=== PATIENT | male | born 1955 | race Caucasian/White ===

== ENCOUNTER → 2016-04-15 | Outpatient (CLI) | payer OTHER ==
[~2016-04-15] MED LIST: AMIO200T PO; CMD6 PO; DXY100 PO; FRS/40 PO; GLC500 PO; LISI2.5T5 PO; LPR50 PO; MCR5 PO; MGNO400 PO
[2016-04-15 12:31] LABS: ALT/SGPT 20 U/L (12-78); BLOOD UREA NITROGEN 43 mg/dl (7-18); BUN/CREATININE RATIO 22.6 (10-20); CALCIUM 9.4 mg/dl (8.5-10.1); CARBON DIOXIDE 29 mmol/L (21-32); CHLORIDE 101 mmol/L (98-107); CHOLESTEROL 158 mg/dl (0-200); GLUCOSE 207 mg/dl (70-99); HEMATOCRIT 46.9 % (42-52); MEAN CELL VOLUME 82.9 fL (80-100); MEAN CORPUSCULAR HEMOGLOBIN 28.1 pg (25-34); MEAN CORPUSCULAR HGB CONC 33.9 g/dl (32-36); MEAN PLATELET VOLUME 11.2 fL (7.4-10.4); PLATELET COUNT 109 K/uL (130-400); RED BLOOD COUNT 5.66 M/uL (4.7-6.1); SODIUM 138 mmol/L (136-145); WHITE BLOOD COUNT 6.25 K/uL (4.8-10.8)
[2016-04-15 12:42] LABS: ALB/GLOB RATIO 1.1 (0.9-2); ALKALINE PHOSPHATASE 63 U/L (45-117); AST/SGOT 15 U/L (15-37); CHOLESTEROL/HDL RATIO 4.3; HDL CHOLESTEROL 37 mg/dl; LDL CHOLESTEROL CALCULATED 77 mg/dl; TRIGLYCERIDES 222 mg/dl (0-150); VERY LOW DENSITY LIPOPROT CALC 44 mg/dl
[2016-04-15 13:07] LABS: ESTIMATED AVERAGE GLUCOSE 246 mg/dl; HA1C FLAG Normal (Normal)
[2016-04-15 13:18] LABS: RATIO 412.5 mcg/mg (0-30.0)
== END | disposition home or self-care (01) ==
LOC: C.LABBFT 10:34
PROVIDERS: ATTEND Internal Medicine
DX: E11.42 Type 2 diabetes mellitus with diabetic polyneuropathy (principal); E11.65 Type 2 diabetes mellitus with hyperglycemia; I48.91 Unspecified atrial fibrillation

== ENCOUNTER → 2016-09-08 | Outpatient (CLI) | payer OTHER ==
--- NOTE | 2016-09-09 07:22 | PAP/PSG TECHNICIAN REPORT ---
[facility] Conference Assistant Polysomnogram Report Study name: None Report date: 09/09/2016 Study date: 09/08/2016 Referring Physician: Sarah Bustos PA-C Name: WALT JOHNSON Interpreting Physician: Paramjit Lawrence M.D. Date of : 1955 Conference Assistant: Odilia Solis [facility]. Sex: Male Age: 61 StudyType: PSG PAP Weight: 258 lbs Height: 61 years, Height 5' 10" Neck Circum: BMI: 37.02 Medications: Advair Diskus, Amiodarone 200 mg, Bumetanide, Glyburide 5 mg, Januvia 100 mg, Levothyroxine, 75 MCG, Magnesium Oxidie 400 mg, Metofrmin 400 mg, Metformin 1000 mg, Metoprolol Tartrate 50 mg, Warfarin Soidum 6 mg Patient History 61 yr. old male here for an updated titration sleep study. Patient lost his insurance and stopped using PAP and supplemental 02, he now has insurance and is ready to start treatment. Parameters Monitored NPSG: E1-M2, E2-M1, Fp1-M2, Fp2-M1, F3-M2, F4-M2, F4-M1, C3-M2, C4-M2, C4-M1, O1-M2, O2-M2, O2-M1, T3-M2, T4-M1, P3-M2, P4-M1, CHIN1, CHIN2, HR, EKG, Legs, PFLOW, SNOR, FLOW, CFLOW, Tidal Volume, THOR, ABDO, SpO2, PLTH, CPRESS, ETCO2 Wave, ETCO2, pH Sleep Architecture Sleep Stages Time at Lights Off 10:26:46 PM STAGES Time (min.) TST (%) Time at Lights On 6:18:46 AM Wake 46.5 -- Total Recording Time (TRT) 472.50 min. N1 16.5 4 Total Sleep Period (TSP) 471.0 min. N2 201.5 47 Total Sleep Time (TST) 425.5min. N3 87.0 20 Awake Time 46.5 min. REM 120.5 28 Wake after Sleep Onset 45.5 min. Sleep Efficiency (SE) 90 % Sleep Onset Latency (RICK) 1.0 min. Number of Stage 1 Shifts None Awakenings 14 Stage Changes 64 Number of REM periods 5 REM 120.5 28 REM Latency 52.0 min. NREM 305.0 72 Body Position Analysis Supine Right Left Side Prone Vertical Total Sleep Time (min.) 472.0 0.0 0.0 0.00 0.0 0.0 Total Sleep Time (%) 100% 0% 0% 0 0% N/A% Total Sleep Time REM (min.) 120.5 0.0 0.0 None 0.0 0.0 Total Sleep Time NREM (min.) 305.0 0.0 0.0 None 0.0 0.0 Intermittent Wake (min.) 46.5 0.0 0.0 None 0.0 0.0 Total Sleep Period (%) 100% None None None None None Arousals Myoclonus (PLM) * Events Count Index Events Count Index Spontaneous 4 1 Events Awake (PLMW) 16 20.6 Respiratory 3 0.6 Events Asleep w/ Arousal (PLMA) 1 0.1 PLM 0 0 Events Asleep w/o Arousal (PLMS) 16 2.3 Snoring 0 0 Total Asleep 17 2.4 Total 7 1 Total 33 4 Respiratory Analysis * CA OA MA CH H RERA Total Count 0 8 0 0 60 1 68 Index 0.0 1.1 0.0 0 8.5 0 9.7 Mean Duration 0.0 25.8 0.0 0.00 31.6 29.5 30.9 Longest Duration 0.0 31.4 0.0 0.00 0.0 29.5 80.8 Respiratory Event Summary Total Supine ~Supine Right Left Prone REM NREM Apneas Count 8 8 N/A N/A N/A N/A 1 7 Index 1.1 1 N/A N/A N/A N/A 0 1 Hypopneas (4% Desat) Count 60 60 N/A N/A N/A N/A 24 36 Index 8.5 8.5 N/A N/A N/A N/A 12.0 7.1 Apneas & All Hypopneas Count 68 68 N/A N/A N/A N/A 25 43 Index 9.6 10 N/A N/A N/A N/A 12.4 8.5 Respiratory Events (Acrobatic Dancer+All Hyp+RERA) Count 68 69 N/A N/A N/A N/A 25 43 Index 9.7 10 N/A N/A N/A N/A 12.4 8.7 Respiratory Related Arousal Count 3 69 N/A N/A N/A N/A 1 3 Index 0.4 0 N/A N/A N/A N/A 0 1 Snoring Analysis Supine Right Left Prone REM NREM Total Snore duration 1.9 min Snores count 87 N/A N/A N/A 21 66 87 Snore mean duration 1.3 Sec Snores index 12 N/A N/A N/A 10.5 13.0 12.3 TST with snoring (%) 0.4% Desaturation Event Summary: Minimum %SpO2 Event Count Mean/Min/Max Duration(sec.) Desaturation Index % Time In Bed > 90 25 35.4 / 19.0 / 58.3 8.0 39.7 86 - 90 46 30.0 / 6.0 / 58.3 11.1 52.6 81 - 85 5 19.8 / 9.3 / 30.8 9.5 6.7 76 - 80 0 N/A 0.0 0.7 71 - 75 0 N/A 0.0 0.2 66 - 70 0 N/A 0.0 0.1 61 - 65 0 N/A 0.0 0.0 56 - 60 0 N/A 0.0 0.0 51 - 55 0 N/A 0.0 0.0 < 50 0 N/A 0.0 0.0 Total REM NREM Awake <50% 0.0 min. 0.0 min. 0.0 min. 0.0 min. 51 - 60% 0.0 min. 0.0 min. 0.0 min. 0.0 min. 61 - 70% 0.3 min. 0.3 min. 0.0 min. 0.0 min. 71 - 80% 4.5 min. 2.0 min. 2.6 min. 0.0 min. 81 - 90% 279.9 min. 85.8 min. 187.1 min. 7.0 min. 91 - 100% 187.3 min. 32.5 min. 115.3 min. 39.5 min. Average 90 89 90 93 Minimum SpO2 68 68 73 82 Desaturation Event Index 7.2 8.5 7.9 1.3 # Desat. Events below 89% 49 17 32 0 Time(%) with Saturation below 89% 23.4 12.9 10.3 0.3 Time(min.) with Saturation below 89% 110.6 60.7 48.7 1.2 Time (mins) REM (mins) NREM (mins) % of TST SpO2 Below 90% 55 17 N38 44.8 SpO2 Below 88% 25 0 0 17 Heart Rate Analysis Min (bpm) Max (bpm) Average (bpm) Awake 38 52 41 NREM 38 65 41 REM 38 53 42 Overall 38 65 41 Supplemental O2 Values Minimum O2 level: None Value Start Time End Time Conference Assistant Comments Mr. Johnson slept in the supine position. Bradycardia was noted. No PLMs noted. No bruxism noted. CPAP was initiated at +4 CMH2O room air and up-titrated to a level of +14 CMH2O 1 liter supplemental oxygen Cflex 1 , which nearly eliminated all respiratory events and snoring. Oxygen was initiated at 4:55 AM, when Mr. Johnson was under 89% for 25.8 minutes, and on 14 CWP for 127.9 min with an AHI of 1.4. A large Bevvy Simplus was used during titration. Mr. Johnson did not wake to use the restroom during the night. Mr. Johnson stated, that was good night. The final report will be interpreted and signed by a sleep physician. The completed physician report will then be placed in the patient medical record. Therapy Event: Therapy (cm H20) 4 5 6 7 8 9 Total Time at Pressure (min.) 3.6 5.7 25.4 10.0 17.7 46.2 TST at Pressure (min.) 2.8 5.7 25.4 10.0 16.7 45.2 # Periods 1 1 1 1 1 1 Sleep Onset (min.) 0.8 0.0 0.0 0.0 0.0 0.0 REM Onset (min.) N/A N/A N/A N/A 8.2 40.0 Sleep Efficiency % 77 100 100 100 94 97 Wakefulness (%) 22.2 0.0 0.0 0.0 5.6 2.2 Wakefulness (min.) 0.8 0.0 0.0 0.0 1.0 1.0 NREM 1 (%) 27.7 0.0 0.0 0.0 11.3 1.1 NREM 1 (min.) 1.0 0.0 0.0 0.0 2.0 0.5 NREM 2 (%) 50.1 100.0 14.0 63.1 77.5 54.0 NREM 2 (min.) 1.8 5.7 3.5 6.3 13.7 25.0 NREM 3 (%) 0.0 0.0 86.0 36.9 0.0 29.2 NREM 3 (min.) 0.0 0.0 21.8 3.7 0.0 13.5 REM (%) 0.0 0.0 0.0 0.0 5.6 13.6 REM (min.) 0.0 0.0 0.0 0.0 1.0 6.3 # Arousals 0 0 1 0 1 0 Arousal Index 0.0 0.0 2.4 0.0 3.6 0.0 # Snore 0 3 17 2 33 8 Snore Index 0.0 31.8 40.2 12.0 118.2 10.6 AHI 106.7 42.5 21.3 48.1 46.6 8.0 AHI Supine 106.7 42.5 21.3 48.1 46.6 8.0 AHI Non-Supine N/A N/A N/A N/A N/A N/A NREM AHI 106.7 42.5 21.3 48.1 45.7 1.5 REM AHI N/A N/A N/A N/A 60.0 47.8 RDI 106.7 42.5 21.3 48.1 46.6 8.0 # Obstructive 0 0 2 4 2 0 # Central Ap 0 0 0 0 0 0 # Mixed 0 0 0 0 0 0 # Hypopneas 5 4 7 4 11 6 RERAS 0 0 0 0 0 0 Total Respiratory Events 5 4 9 8 13 6 Time Below SpO2 89.00% (min.) 0.8 5.5 24.4 6.6 5.2 6.2 Mean NREM SpO2 (%) 90 84 84 88 90 90 Mean REM SpO2 (%) N/A N/A N/A N/A 88 85 Mean Sleep SpO2 (%) 90 84 84 88 90 89 Min NREM SpO2 (%) 85 79 73 80 80 87 Min REM SpO2 (%) N/A N/A N/A N/A 86 71 Position Supine (min.) 2.8 5.7 25.4 10.0 16.7 45.2 Position Non-supine (min.) 0.0 0.0 0.0 0.0 0.0 0.0 LM Index Sleep 0.0 0.0 2.4 0.0 10.7 5.3 LM Index NREM 0.0 0.0 2.4 0.0 7.6 6.2 LM Index REM N/A N/A N/A N/A 60.0 0.0 Mean Heart Rate (bpm) 44 46 46 43 42 42 Min Heart Rate (bpm) 43 45 41 41 40 40 Therapy (cm H20) 10 11 12 13 14 Total Time at Pressure (min.) 10.5 14.1 42.5 83.7 212.4 TST at Pressure (min.) 10.5 13.7 41.4 80.2 173.9 # Periods 1 1 1 1 1 Sleep Onset (min.) 0.0 0.0 0.6 0.0 0.0 REM Onset (min.) 0.0 0.0 N/A 57.6 0.0 Sleep Efficiency % 100 97 97 95 81 Wakefulness (%) 0.0 2.7 2.6 4.2 18.1 Wakefulness (min.) 0.0 0.4 1.1 3.5 38.5 NREM 1 (%) 0.0 0.0 4.7 4.8 3.3 NREM 1 (min.) 0.0 0.0 2.0 4.0 7.0 NREM 2 (%) 0.0 0.0 57.6 38.8 41.7 NREM 2 (min.) 0.0 0.0 24.5 32.5 88.5 NREM 3 (%) 0.0 0.0 35.1 21.0 7.3 NREM 3 (min.) 0.0 0.0 14.9 17.6 15.5 REM (%) 100.0 97.3 0.0 31.2 29.6 REM (min.) 10.5 13.7 0.0 26.1 62.9 # Arousals 1 1 0 0 3 Arousal Index 5.7 4.4 0.0 0.0 1.0 # Snore 6 6 3 1 8 Snore Index 34.3 26.3 4.3 0.7 2.8 AHI 40.0 26.3 4.3 4.5 0.3 AHI Supine 40.0 26.3 4.3 4.5 0.3 AHI Non-Supine N/A N/A N/A N/A N/A NREM AHI N/A N/A 4.3 0.0 0.5 REM AHI 40.0 26.3 N/A 13.8 0.0 RDI 40.0 26.3 4.3 4.5 0.7 # Obstructive 0 0 0 0 0 # Central Ap 0 0 0 0 0 # Mixed 0 0 0 0 0 # Hypopneas 7 6 3 6 1 RERAS 0 0 0 0 1 Total Respiratory Events 7 6 3 6 2 Time Below SpO2 89.00% (min.) 6.7 4.3 0.8 23.1 25.8 Mean NREM SpO2 (%) N/A N/A 91 90 92 Mean REM SpO2 (%) 87 89 N/A 87 90 Mean Sleep SpO2 (%) 87 89 91 89 91 Min NREM SpO2 (%) N/A N/A 87 88 88 Min REM SpO2 (%) 68 81 N/A 82 83 Position Supine (min.) 10.5 13.7 41.4 80.2 173.9 Position Non-supine (min.) 0.0 0.0 0.0 0.0 0.0 LM Index Sleep 0.0 4.4 8.7 0.7 0.3 LM Index NREM N/A N/A 8.7 1.1 0.5 LM Index REM 0.0 4.4 N/A 0.0 0.0 Mean Heart Rate (bpm) 43 43 40 41 40 Min Heart Rate (bpm) 39 40 39 39 38
--- NOTE | 2016-09-09 16:54 | POLYSOMNOGRAPH REPORT ---
CLINICAL DATA: A 61-year-old male with BMI of [address] Claudia Santamaria and myself for an updated titration study. He was on CPAP 11 cm water pressure with oxygen at night. He lost his insurance and stopped using CPAP and oxygen and has returned for an updated titration study. SLEEP ARCHITECTURE: Total recording time was 472.5 minutes. Total sleep period was 471 minutes. Total sleep time was 425.5 minutes divided between 305 minutes of non-REM sleep and 120.5 minutes of REM sleep. Sleep onset latency was 1 minute. REM latency was 52 minutes. Sleep efficiency was 90%. Wake after sleep onset was 45.5 minutes. Sleep consisted of stage N1 4%, stage N2 47%, stage N3 20%, and REM 28%. AROUSAL DATA: Seven arousals were recorded for an index of 1 per hour. PLM DATA: Seventeen limb movements during sleep were noted for an index of 2.4 per hour with arousal index of 0.1 per hour. RESPIRATORY DATA: The AHI was 9.6. There were 8 obstructive apneic episodes, the longest duration of which was 31.4 seconds. There were 60 hypopneas with a mean duration of 31.6 seconds. OXIMETRY DATA: Nocturnal hypoxemia was seen. Oxygen lashaun was 68% during REM. The mean saturation was 90%. Time below 88% was 25 minutes. EKG: Heart rates ranged from 38-65 beats per minute. No arrhythmias were noted. BICYCLE MECHANIC'S COMMENTS AND TREATMENT SUMMARY: The patient slept supine. He used a large [employer] Simplus mask. He was titrated up to 14 cm of water He slept for 173.9 minutes and had an AHI is 0.3 but persistent nocturnal hypoxemia. At that point, oxygen 1 liter per minute was added. Following the addition of oxygen, his sleep apnea and hypoxemia resolved. IMPRESSION: Obstructive sleep apnea/hypopnea corrected with CPAP 14 cm of water pressure, C-flex 1, oxygen 1 liter per minute with a large [employer] Simplus mask. RECOMMENDATIONS: The patient should be started on the above noted treatment regimen and seen back in followup within 90 days to document efficacy and compliance. MTDD
== END | disposition home or self-care (01) ==
LOC: C.NEUR 20:00
PROVIDERS: ATTEND Physician Assistant Medical
DX: G47.33 Obstructive sleep apnea (adult) (pediatric) (principal); G47.34 Idiopathic sleep related nonobstructive alveolar hypoventilation

== ENCOUNTER → 2016-09-22 | Outpatient (CLI) | payer OTHER ==
[2016-09-22 18:15] LABS: ALT/SGPT 23 U/L (12-78); BLOOD UREA NITROGEN 33 mg/dl (7-18); BUN/CREATININE RATIO 16.6 (10-20); CALCIUM 9.4 mg/dl (8.5-10.1); CARBON DIOXIDE 34 mmol/L (21-32); CHLORIDE 104 mmol/L (98-107); GLUCOSE 175 mg/dl (70-99); POTASSIUM 5.1 mmol/L (3.5-5.1); SODIUM 140 mmol/L (136-145)
[2016-09-22 18:29] LABS: ALB/GLOB RATIO 1.1 (0.9-2); ALKALINE PHOSPHATASE 54 U/L (45-117); AST/SGOT 15 U/L (15-37)
[2016-09-23 07:40] LABS: ESTIMATED AVERAGE GLUCOSE 166 mg/dl; HA1C FLAG Normal (Normal)
== END | disposition home or self-care (01) ==
LOC: C.LABBFT 12:10
PROVIDERS: ATTEND Internal Medicine
DX: E11.42 Type 2 diabetes mellitus with diabetic polyneuropathy (principal); E03.9 Hypothyroidism, unspecified; Z11.59 Encounter for screening for other viral diseases

== ENCOUNTER → 2017-01-19 | Outpatient (CLI) | payer OTHER ==
[2017-01-19 17:29] LABS: BASO % 0.4 %; BASO ABS # 0.02 K/uL (0-0.2); COMPLETE YES; EOS % 1.4 %; HEMATOCRIT 46.9 % (42-52); IG% 1.1 %; LYMPH % 12.8 %; LYMPH ABS # 0.72 K/uL (1.2-3.4); MEAN CORPUSCULAR HEMOGLOBIN 29.4 pg (25-34); MEAN CORPUSCULAR HGB CONC 32.6 g/dl (32-36); MONO % 8.2 %; NEUT % 76.1 %; PLATELET COUNT 104 K/uL (130-400); RED BLOOD COUNT 5.21 M/uL (4.7-6.1); WHITE BLOOD COUNT 5.62 K/uL (4.8-10.8)
[2017-01-19 17:46] LABS: BLOOD UREA NITROGEN 39 mg/dl (7-18); BUN/CREATININE RATIO 17.6 (10-20); CALCIUM 8.9 mg/dl (8.5-10.1); CARBON DIOXIDE 34 mmol/L (21-32); CHLORIDE 105 mmol/L (98-107); CHOLESTEROL 135 mg/dl (0-200); CREATININE 2.22 mg/dl (0.60-1.40); GLUCOSE 140 mg/dl (70-99); POTASSIUM 5.6 mmol/L (3.5-5.1); SODIUM 141 mmol/L (136-145)
[2017-01-19 17:59] LABS: ALB/GLOB RATIO 1.1 (0.9-2); ALKALINE PHOSPHATASE 54 U/L (45-117); ALT/SGPT 24 U/L (12-78); AST/SGOT 16 U/L (15-37); CHOLESTEROL/HDL RATIO 3.6; HDL CHOLESTEROL 38 mg/dl; LDL CHOLESTEROL CALCULATED 54 mg/dl; TRIGLYCERIDES 216 mg/dl (0-150); VERY LOW DENSITY LIPOPROT CALC 43 mg/dl
[2017-01-20 06:05] LABS: ESTIMATED AVERAGE GLUCOSE 154 mg/dl; HA1C FLAG Normal (Normal)
== END | disposition home or self-care (01) ==
LOC: C.LABBFT 11:11
PROVIDERS: ATTEND Internal Medicine
DX: E11.29 Type 2 diabetes mellitus with other diabetic kidney complication (principal)

== ENCOUNTER → 2017-01-22 | Outpatient (CLI) | payer OTHER ==
[2017-01-22 13:02] LABS: INR 1.8 (0.9-1.1); PARTIAL THROMBOPLASTIN RATIO 1.4; PROTHROMBIN TIME (PATIENT) 18.7 SECONDS (9.0-12.0)
== END | disposition home or self-care (01) ==
LOC: C.LABBFT 11:35
PROVIDERS: ATTEND Urology
DX: E11.51 Type 2 diabetes mellitus with diabetic peripheral angiopathy without gangrene (principal); I48.2 Chronic atrial fibrillation; N52.1 Erectile dysfunction due to diseases classified elsewhere; N18.3 Chronic kidney disease, stage 3 (moderate)

== ENCOUNTER → 2017-02-01 | Outpatient (CLI) | payer OTHER | END | disposition home or self-care (01) | LOC: C.LABBFT 07:42 | PROVIDERS: ATTEND Urology | DX: N39.0 Urinary tract infection, site not specified (principal) ==

== ENCOUNTER → 2017-04-07 | Outpatient (CLI) | payer OTHER ==
[2017-04-07 17:57] LABS: INR 1.6 (0.9-1.1)
== END | disposition home or self-care (01) ==
LOC: C.LABBFT 15:39
PROVIDERS: ATTEND Physician Assistant Medical
DX: I48.0 Paroxysmal atrial fibrillation (principal)

== ENCOUNTER 2018-07-20 03:42 | Inpatient (IN) ==
[2018-07-20] MEDS ORDERED: HYDROmorphone INJ 1 MG/ML SYRINGE IV STA (04:12)
[2018-07-20 04:43] LABS: Hemoglobin 15.1 g/dL (14.0-18.0); Mean Corpuscular Hgb Conc 34.3 g/dL (32-36); Mean Corpuscular Volume 86.3 fL (80-100); RDW Coefficient of Variation 14.1 % (11.5-14.5); RDW Standard Deviation 44.2 fL (36.4-46.3); White Blood Count 7.59 K/uL (4.8-10.8)
[2018-07-20 04:56] LABS: Partial Thromboplastin Ratio 0.9; Partial Thromboplastin Time 23.6 Seconds (21.0-31.0); Prothrombin Time 10.6 Seconds (9.0-12.0)
[2018-07-20 05:04] LABS: Mean Platelet Volume 10.6 fL (7.4-10.4); Platelet Count 79 K/uL (130-400)
[2018-07-20 05:08] LABS: Basophils # (auto) 0.01 K/uL (0-0.2); Basophils % (auto) 0.1 %; Eosinophils # (auto) 0.01 K/uL (0-0.5); Eosinophils % (auto) 0.1 %; Immature Granulocytes # (auto) 0.02 K/uL (0.00-0.02); Immature Granulocytes % (auto) 0.3 %; Lymphocytes # (auto) 0.31 K/uL (1.2-3.4); Lymphocytes % (auto) 4.1 %; Monocytes # (auto) 0.65 K/uL (0.11-0.59); Monocytes % (auto) 8.6 %; Neutrophils # (auto) 6.59 K/uL (1.4-6.5); Neutrophils % (auto) 86.8 %; Platelet Estimate Decreased (Normal)
[2018-07-20 05:18] LABS: Albumin Globulin Ratio 1.3 (0.9-2); Albumin Level 3.7 gm/dl (3.4-5.0); BUN Creatinine Ratio 17.6 (10-20); Bilirubin,Total 0.6 mg/dl (0.2-1); Calcium 8.5 mg/dl (8.5-10.1); Creatinine Clr Calc Pharmacy 44.6 ml/min; Est GFR (African American) 39.2; Est GFR (Non-African American) 33.8; Globulin 2.9 gm/dl (2.5-4.0); Potassium 5.6 mmol/L (3.5-5.1); Total Protein 6.6 gm/dl (6.4-8.2); Troponin I 0.016 ng/ml (0-0.045)
[2018-07-20] MEDS ORDERED: PIPERACILL/TAZOBAC CONSULT ACTIVE PRN ×2 (06:18→09:46)
[2018-07-20] MEDS ORDERED: PIPERACILLIN/TAZOBACTAM 4.5 GM/120 ML BAG IV ONE (06:18)
[2018-07-20] MEDS ORDERED: SODIUM CHLORIDE 0.9% 1000ML 500 ML IV ONE (06:24)
[2018-07-20] MEDS: SODIUM CHLORIDE 0.9% 500 ML IV SCH ×7 (07:27→19:52)
[2018-07-20] MEDS ORDERED: NovoLIN-R INSULIN PER UNIT CHARGE IV STA (07:33)
--- NOTE | 2018-07-20 07:43 | Emergency Department Note ---
Entered by Sandra Duncan acting as a scribe for History of Present Illness General Chief complaint: Abdominal Pain Stated complaint: ABDOMINAL PAIN Time Seen by Provider: 07/20/18 03:47 Source: patient History of Present Illness Provider complaint: Abdominal pain Onset (ago): hour(s) 8 Location: abdomen Pain Consistency: + constant Maximum Pain Intensity: 9 Relieved By: + none Exacerbated By: + none Associated symptoms: + denies other symptoms and + fever/chills; no chest pain, no nausea/vomiting and no shortness of breath The patient is a 63 y/o male who presents to the emergency department for evaluation of constant abdominal pain beginning 8 hours ago. The patient states that the pain is all over his abdomen beginning yesterday at 8pm. He notes he could not recall his last bowel movement so he did take laxatives but has not produced a substantial bowel movement. The patient notes that he has a fever as well. The patient denies any nausea, vomiting, chest pain, shortness of breath, and pancreatitis history. He notes that he is on Coumadin. The patient reported that he is taking Prednisone for possible right ankle gout. Home Medications Home Medications Medication Instructions Recorded Confirmed Type Januvia 100 mg PO QDL 02/03/18 07/20/18 History amiodarone 200 mg PO QAM 02/03/18 07/20/18 History bumetanide 1 mg PO QPM 02/03/18 07/20/18 History fluticasone propion-salmeterol 1 inh INHALATION BID 02/03/18 07/20/18 History [Advair Diskus] magnesium oxide 800 mg PO BID 02/03/18 07/20/18 History metoprolol tartrate 25 mg PO BID 02/03/18 07/20/18 History warfarin 6 mg PO QPM 02/03/18 07/20/18 History blood sugar diagnostic strips #10 ea 07/19/18 07/20/18 Rx glipizide 10 mg tablet 10 mg PO BID #60 tab 07/19/18 07/20/18 Rx methylprednisolone 4 mg tablet 4 mg PO .COMPLEX #15 tab 07/19/18 07/20/18 Rx peg 3350-electrolytes 227.1 240 ml PO Q10M #1 ea 07/19/18 07/20/18 Rx gram-21.5 gram-6.36gram oral powder packet levothyroxine 75 mcg PO DAILY 07/20/18 07/20/18 History metformin 500 mg PO BID 07/20/18 07/20/18 History Allergies Allergy/AdvReac Type Severity Reaction Status Date / Time furosemide [From Lasix] AdvReac Rash Verified 07/20/18 04:19 Past Med/Surg History Medical History Asthma inhaler daily Atrial fibrillation follows with Dr. 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" History of strabismus surgery bilt History of surgery penial implant History of tooth extraction wisdom teeth Status post cervical spinal fusion normal ROM Family History Father Family history of diabetes mellitus Sister Family history of diabetes mellitus Brother Family history of diabetes mellitus Social History Preferred Language: Stateless Communication Ability: Effective Beliefs That Will Affect Care: None Current Living Situation: Alone Feels Safe at Home: Yes Smoking Status: Former smoker Tobacco Type: smokeless tobacco Second Hand Exposure: Yes (father smoked) Hx Alcohol Use: Yes Alcohol type: beer Hx Substance Use: No Review of Systems See HPI for pertinent positives & negatives. and A total of 10 systems reviewed and were otherwise negative Physical Exam Vital Signs Vital Signs - 24 hr 07/20/18 03:49 07/20/18 03:50 07/20/18 03:52 Temperature 38.2 C H Temperature Source Oral Sepsis Recent Fever Within 48 Hours Yes Sepsis New/Unexplained Change in Mental Status No Sepsis Action Taken by Nursing No Action Required Pulse Rate 74 74 75 Pulse Rate [Bilateral Apical] Pulse Rate from SpO2 Sensor 74 74 Respiratory Rate 19 18 23 Respiratory Effort / Characteristics Non-Labored Spontaneous Respiratory Depth Normal Respiratory Pattern Regular Blood Pressure 164/82 H Blood Pressure [Right Arm] Blood Pressure Mean 109 Blood Pressure Mean [Right Arm] Blood Pressure Position Lying Blood Pressure Position [Right Arm] Pulse Oximetry 94 92 94 Oxygen Delivery Method Room Air Oxygen Flow Rate 07/20/18 04:00 07/20/18 04:30 07/20/18 04:52 Temperature Temperature Source Sepsis Recent Fever Within 48 Hours Sepsis New/Unexplained Change in Mental Status Sepsis Action Taken by Nursing Pulse Rate 75 72 68 Pulse Rate [Bilateral Apical] 68 Pulse Rate from SpO2 Sensor 75 68 Respiratory Rate 23 26 H 24 Respiratory Effort / Characteristics Non-Labored Respiratory Depth Normal Respiratory Pattern Blood Pressure 132/79 Blood Pressure [Right Arm] 132/79 Blood Pressure Mean 96 Blood Pressure Mean [Right Arm] 96 Blood Pressure Position Blood Pressure Position [Right Arm] Pulse Oximetry 93 98 Oxygen Delivery Method Room Air Nasal Cannula Oxygen Flow Rate 2 07/20/18 05:00 07/20/18 05:30 07/20/18 05:33 Temperature Temperature Source Sepsis Recent Fever Within 48 Hours Sepsis New/Unexplained Change in Mental Status Sepsis Action Taken by Nursing Pulse Rate 68 67 67 Pulse Rate [Bilateral Apical] Pulse Rate from SpO2 Sensor 68 67 67 Respiratory Rate 20 19 21 Respiratory Effort / Characteristics Respiratory Depth Respiratory Pattern Blood Pressure 134/78 Blood Pressure [Right Arm] Blood Pressure Mean 96 Blood Pressure Mean [Right Arm] Blood Pressure Position Blood Pressure Position [Right Arm] Pulse Oximetry 98 99 99 Oxygen Delivery Method Nasal Cannula Nasal Cannula Nasal Cannula Oxygen Flow Rate 2 2 2 07/20/18 05:34 07/20/18 05:51 07/20/18 05:54 Temperature Temperature Source Sepsis Recent Fever Within 48 Hours Sepsis New/Unexplained Change in Mental Status Sepsis Action Taken by Nursing Pulse Rate 67 66 Pulse Rate [Bilateral Apical] 67 Pulse Rate from SpO2 Sensor 67 66 Respiratory Rate 21 21 20 Respiratory Effort / Characteristics Respiratory Depth Respiratory Pattern Blood Pressure 149/74 H Blood Pressure [Right Arm] 149/74 H Blood Pressure Mean 99 Blood Pressure Mean [Right Arm] 99 Blood Pressure Position Blood Pressure Position [Right Arm] Sitting Pulse Oximetry 99 95 98 Oxygen Delivery Method Nasal Cannula Oxygen Flow Rate 2 2 2 07/20/18 06:00 07/20/18 06:15 Temperature Temperature Source Sepsis Recent Fever Within 48 Hours Sepsis New/Unexplained Change in Mental Status Sepsis Action Taken by Nursing Pulse Rate 63 64 Pulse Rate [Bilateral Apical] Pulse Rate from SpO2 Sensor 64 64 Respiratory Rate 19 20 Respiratory Effort / Characteristics Respiratory Depth Respiratory Pattern Blood Pressure 132/73 134/70 Blood Pressure [Right Arm] Blood Pressure Mean 92 91 Blood Pressure Mean [Right Arm] Blood Pressure Position Blood Pressure Position [Right Arm] Pulse Oximetry 97 97 Oxygen Delivery Method Oxygen Flow Rate 2 2 HEENT: Head - normocephalic and atraumatic Pupils are equal, round, and reactive to light. Extraocular eye muscles are intact, and sclera are anicteric. Nose - moist nasal mucosa without discharge. Mouth - moist buccal mucosa. Oropharynx is nonerythematous and there is no tonsillar exudate or edema noted. Neck: Supple; no JVD, nuchal rigidity, cervical lymphadenopathy. Heart: Regular rate and tachycardic rhythm. There is a normal S1 and S2 with no murmurs, clicks, or gallops appreciated. Lungs: Clear to auscultation bilaterally with no wheezes, rales, or rhonchi. Abdomen: Soft, nondistended, with good bowel sounds. There are no palpable pulsatile masses or hepatosplenomegaly. There is no guarding, rigidity, or rebound noted. Exquisite tenderness to palpation in right lower quadrant and mild tenderness in right upper quadrant Extremities: No evidence of cyanosis, clubbing, or edema. There are easily palpable peripheral pulses. Skin: Hot and dry with good turgor and no rashes. Course 0354: The patient was evaluated in room B09. A complete history and physical exam was performed. A septic protocol was performed. Labs were drawn as above. 0409: Ordered morphine 2 mg IV. The patient went for CT scan of the abdomen/pelvis as described above. 0618: Ordered Zosyn 4.5 gm in 120 ml IV along with a bolus of normal saline solution and then a normal 0620: I spoke with Dr. Laly Walker -General Surgery, who stated to follow up with the hospitalist. 0622: I discussed the findings with the patient. Waiting to hear back from Dr. Madsen. 0626: I spoke with Dr. Cale ROA Hospitalist. She will evaluate the patient for further management. Reevaluation(s) Reevaluation #1: I spoke with Dr. Laly Walker -General Surgery, who stated to follow up with the hospitalist. Time: 06:20 Reevaluation #2: I spoke with Dr. Cale ROA Hospitalist. She will evaluate the patient for further management. Time: 06:26 Administered Medications Sodium Chloride (Nss) 500 mls @ 125 mls/hr IV .Q4H MARCUS Stop: 08/19/18 06:29 Last Admin: 07/20/18 07:27 Dose: 125 mls/hr Documented by: [id number] Discontinued Medications Hydromorphone HCl (Dilaudid) 1 mg IV NOW STA Stop: 07/20/18 04:13 Last Admin: 07/20/18 04:28 Dose: 1 mg Documented by: [id number] Piperacillin Sod/Tazobactam Sod (Zosyn) 4.5 gm in 120 mls @ 240 mls/hr IV NOW ONE Stop: 07/20/18 06:47 Last Infusion: 07/20/18 07:03 Dose: 0 mls/hr Documented by: [id number] Admin: 07/20/18 06:27 Dose: 240 mls/hr Documented by: [id number] Sodium Chloride (Nss 1000ml) 500 mls @ 999 mls/hr IV .Q31M ONE Stop: 07/20/18 06:54 Last Infusion: 07/20/18 07:03 Dose: 0 mls/hr Documented by: [id number] Admin: 07/20/18 06:27 Dose: 999 mls/hr Documented by: [id number] Medical Decision Making Differential Diagnosis Differential diagnosis: sepsis, small bowel obstruction. appendicitis, pancreatitis, cholecystitis, ankle cellulitis. Medical Records Attestation: I reviewed the patient's medical records. Home Medications Current Medication List: was personally reviewed by me Laboratory Data Attestation: I reviewed the patient's lab results. Result diagrams: 07/20/18 04:20 07/20/18 04:20 Lab Results 07/20/18 07/20/18 07/20/18 Range/Units 04:20 04:20 04:20 WBC 7.59 (4.8-10.8) K/uL RBC 5.10 (4.7-6.1) M/uL Hgb 15.1 (14.0-18.0) g/dL Hct 44.0 (42-52) % MCV 86.3 (80-100) fL MCH 29.6 (25-34) pg MCHC 34.3 (32-36) g/dL RDW Std Deviation 44.2 (36.4-46.3) fL RDW Coeff of Guy 14.1 (11.5-14.5) % Plt Count 79 L (130-400) K/uL MPV 10.6 H (7.4-10.4) fL Immature Gran % (Auto) 0.3 % Neut % (Auto) 86.8 % Lymph % (Auto) 4.1 % [place] % (Auto) 8.6 % Eos % (Auto) 0.1 % Baso % (Auto) 0.1 % Immature Gran # (Auto) 0.02 (0.00-0.02) K/uL Neut # (Auto) 6.59 H (1.4-6.5) K/uL Lymph # (Auto) 0.31 L (1.2-3.4) K/uL [place] # (Auto) 0.65 H (0.11-0.59) K/uL Eos # (Auto) 0.01 (0-0.5) K/uL Baso # (Auto) 0.01 (0-0.2) K/uL Platelet Estimate Decreased L (Normal) PT 10.6 (9.0-12.0) Seconds INR 1.0 (0.9-1.1) APTT 23.6 (21.0-31.0) Seconds PTT Ratio 0.9 Sodium 137 (136-145) mmol/L Potassium 5.6 H (3.5-5.1) mmol/L Chloride 103 (98-107) mmol/L Carbon Dioxide 30 (21-32) mmol/L Anion Gap 4.0 (3-11) BUN 35 H (7-18) mg/dl Creatinine 2.01 H (0.6-1.4) mg/dl Est Cr Clr Drug Dosing 44.6 ml/min Est GFR ( Amer) 39.2 Est GFR (Non-Af Amer) 33.8 BUN/Creatinine Ratio 17.6 (10-20) Glucose 418 H* (70-99) mg/dl POC Glucose (70-99) Lactate (0.4-2.0) mmol/L Calcium 8.5 (8.5-10.1) mg/dl Total Bilirubin 0.6 (0.2-1) mg/dl AST 8 L (15-37) U/L ALT 18 (12-78) U/L Alkaline Phosphatase 62 (45-117) U/L Troponin I 0.016 (0-0.045) ng/ml Total Protein 6.6 (6.4-8.2) gm/dl Albumin 3.7 (3.4-5.0) gm/dl Globulin 2.9 (2.5-4.0) gm/dl Albumin/Globulin Ratio 1.3 (0.9-2) Lipase 137 (73-393) U/L Beta-Hydroxybutyric Acd 5.00 H (0.2-2.81) mg/dl 07/20/18 07/20/18 Range/Units 04:40 07:33 WBC (4.8-10.8) K/uL RBC (4.7-6.1) M/uL Hgb (14.0-18.0) g/dL Hct (42-52) % MCV (80-100) fL MCH (25-34) pg MCHC (32-36) g/dL RDW Std Deviation (36.4-46.3) fL RDW Coeff of Guy (11.5-14.5) % Plt Count (130-400) K/uL MPV (7.4-10.4) fL Immature Gran % (Auto) % Neut % (Auto) % Lymph % (Auto) % [place] % (Auto) % Eos % (Auto) % Baso % (Auto) % Immature Gran # (Auto) (0.00-0.02) K/uL Neut # (Auto) (1.4-6.5) K/uL Lymph # (Auto) (1.2-3.4) K/uL [place] # (Auto) (0.11-0.59) K/uL Eos # (Auto) (0-0.5) K/uL Baso # (Auto) (0-0.2) K/uL Platelet Estimate (Normal) PT (9.0-12.0) Seconds INR (0.9-1.1) APTT (21.0-31.0) Seconds PTT Ratio Sodium (136-145) mmol/L Potassium (3.5-5.1) mmol/L Chloride (98-107) mmol/L Carbon Dioxide (21-32) mmol/L Anion Gap (3-11) BUN (7-18) mg/dl Creatinine (0.6-1.4) mg/dl Est Cr Clr Drug Dosing ml/min Est GFR ( Amer) Est GFR (Non-Af Amer) BUN/Creatinine Ratio (10-20) Glucose (70-99) mg/dl POC Glucose 479 H* (70-99) Lactate 1.2 (0.4-2.0) mmol/L Calcium (8.5-10.1) mg/dl Total Bilirubin (0.2-1) mg/dl AST (15-37) U/L ALT (12-78) U/L Alkaline Phosphatase (45-117) U/L Troponin I (0-0.045) ng/ml Total Protein (6.4-8.2) gm/dl Albumin (3.4-5.0) gm/dl Globulin (2.5-4.0) gm/dl Albumin/Globulin Ratio (0.9-2) Lipase (73-393) U/L Beta-Hydroxybutyric Acd (0.2-2.81) mg/dl Imaging Data Radiologist's Impression: Radiology results as stated below per my review and the radiologist's interpretation: CT abdomen and pelvis without contrast Pericolonic fat stranding noted surrounding the sigmoid colon in the right pelvis with regional diverticula identified. Findings are most consistent with acute diverticulitis. There is scattered pneumoperitoneum involving the right abdomen and adjacent to the sigmoid colon most consistent with perforation. No abscess formation. The unenhanced liver, gallbladder, pancreas, spleen, adrenal, glands and kidneys demonstrate no significant acute abnormally. Suspect cortical cyst involving the superior aspect of the right kidney measuring approximately 3 cm. The bladder is unremarkable. No acute osseous or significant acute abnormality identified. ECG Data Attestation: I personally reviewed and interpreted this ECG as follows: Indication: abdominal pain Rate (beats per minute): 74 Rhythm: normal sinus Findings: + 1st degree AV block; no acute ischemic change and no ectopy Blood Pressure Blood Pressure Findings: Elevated blood pressure Blood Pressure Disposition: further management by hospitalist NAGA Hui The patient is a 63 y/o male who presents to the emergency department for evaluation of constant abdominal pain beginning 8 hours ago. The patient was febrile but had a normal white blood cell count. There was evidence of thrombocytopenia, subtherapeutic INR, significant hyperglycemia with possible DKA. Patient was treated with IV analgesia along with IV normal saline solution. CT scan of the abdomen/pelvis revealed a sigmoid diverticulitis in the right lower quadrant of the abdomen with some surrounding pneumoperitoneum. He was treated with IV Zosyn. The patient remained hemodynamically stable. He did not have an acute abdomen on physical exam. I discussed the case with the [facility] Hospitalist and they will evaluate for further management. Impression & Plan Diverticulitis of colon with perforation, Acute hyperglycemia, GAYATRI (acute kidney injury), Thrombocytopenia, Supratherapeutic INR Discharge Plan Visit Data Chief Complaint: Abdominal Pain Stated Complaint: ABDOMINAL PAIN ED Provider: Julissa Costa Discharge Problem: Diverticulitis of colon with perforation, Acute hyperglycemia, GAYATRI (acute kidney injury), Thrombocytopenia, Supratherapeutic INR Patient Disposition: Being Evaluated by Hospitalist Forms Stand Alone Forms: Call Back Authorization, My [facility] Prescriptions Prescriptions: No Action glipizide 10 mg tablet 10 mg PO BID Qty: 60 RF: 2 OneTouch Ultra Blue Test Strip strip .ROUTE .MEDSUPPLY Qty: 10 RF: 0 Golytely 227.1-21.5-6.36 gram powder in packet 240 ml PO Q10M Qty: 1 RF: 0 methylprednisolone 4 mg tablet 4 mg PO .COMPLEX Qty: 15 RF: 0 metformin 500 mg tablet 500 mg PO BID RF: 0 levothyroxine 75 mcg tablet 75 mcg PO DAILY RF: 0 amiodarone 200 mg Tablet 200 mg PO QAM RF: 0 warfarin 6 mg Tablet 6 mg PO QPM RF: 0 fluticasone propion-salmeterol [Advair Diskus] 500-50 mcg/dose Blister With Device 1 inh INHALATION BID RF: 0 metoprolol tartrate 50 mg Tablet 25 mg PO BID RF: 0 bumetanide 1 mg Tablet 1 mg PO QPM RF: 0 Januvia 100 mg Tablet 100 mg PO QDL RF: 0 magnesium oxide 400 mg magnesium Tablet 800 mg PO BID RF: 0 Referrals Referrals: Jf Taylor III, MD [Primary Care Provider] - Discharge Problem: Diverticulitis of colon with perforation Qualifiers: Diverticulitis bleeding: without bleeding Qualified Code(s): K57.20 - Diverti culitis of large intestine with perforation and abscess without bleeding The scribe's documentation has been prepared under my direction and personally reviewed by me in its entirety. I confirm that the note above accurately reflects all work, treatment, procedures, and medical decision making performed by me.
[2018-07-20] MEDS ORDERED: NovoLIN-R INSULIN PER UNIT CHARGE ONE (07:51)
--- NOTE | 2018-07-20 07:53 | CT Scan Report ---
ABDOMEN AND PELVIS CT WITHOUT CONTRAST CT DOSE: 1371.02 mGy.cm HISTORY: Acute right lower quadrant abdominal pain eval for appy TECHNIQUE: Multiaxial CT images of the abdomen and pelvis were performed without contrast. A dose lo wering technique was utilized adhering to the principles of ALARA. COMPARISON STUDY: CTA of the chest 06/24/2013. FINDINGS: Mild bronchial wall thickening at the level of the lung bases. Minimal dependent subsegmental bibasil ar atelectasis. Imaged inferior cardiac chambers are enlarged. No pericardial effusion. Scattered calcified granulomata noted about the spleen. The liver, gallbladder, pancreas and adrenal gland appear unremarkable. 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 Mild to moderate nonspecific bilateral perinephric stranding. No urolith or obstructive uropath y. Hypodense lesion of the superior pole right kidney suggests cyst, 3.0 cm. Prostamegaly. Urinary bl adder is unremarkable. A penile prosthesis is noted. Mild calcified plaque of the aorta without aneur ysm. No adenopathy. No bowel obstruction. Tortuous sigmoid colon. Wall thickening with pericolonic stranding is noted abo ut the sigmoid colon within the abdominal right lower quadrant centered about an inflamed diverticula . There is a cluster of pneumoperitoneum with stranding and trace free fluid about a sigmoid divertic ulum on image 340 series 3 compatible with perforation. No drainable fluid collection. Mild pneumoper itoneum extends into the upper abdomen. No pneumatosis. A tiny air and fluid-filled tract is noted ex tending towards the ascending colon on image 339 of series 3. Terminal ileum and appendix appear norm al. Tiny fat filled periumbilical hernia contains mild stranding and trace fluid, diastases 1.7 cm. B ones appear to be intact. Degenerative changes of the spine, pelvis and hips. IMPRESSION: 1. Acute sigmoid diverticulitis with perforation. Inflammatory stranding with trace fluid noted about the abdominal right lower quadrant. No drainable fluid collection identified at this time. Surgical consultation is needed. 2. No bowel obstruction. 3. Normal appendix. 4. Additional incidental findings as above. Electronically signed by: Michael Greene M.D. 07/20/2018 7:52 AM
--- NOTE | 2018-07-20 08:03 | History & Physical Report ---
Date of Service July 20, 2018 Assessment & Plan (1) Diverticulitis of colon with perforation: Patient with right-sided sigmoid diverticulitis with perforation with pneumoperitoneum evident on CT scan. Has diffuse tenderness of the abdomen right greater than left with guarding on the right. Discussed case with general surgery and perform serial abdominal exams between myself and the general surgeon with no change throughout the day. Has been febrile throughout the day, but not tachycardic, no leukocytosis, lactate is normal on admission. -Admit to PCU -Appreciate general surgery consultation -We will continue serial abdominal exams-discussed with overnight resident and real estate accountant-call surgeon if becomes hypotensive, tachycardic, or worsening abdominal exam or mental status changes -Continue IV Zosyn started in the emergency room -Provide aggressive IV fluids with normal saline, follow urine output closely-he voided twice in the toilet during the day without measuring it, and voided 400 mL's of concentrated appearing urine at 2250-will increase normal saline 125 mL's per hour - will likely need serial imaging as well-defer to general surgery -IV Dilaudid for pain control -Keep n.p.o. strictly and convert p.o. meds to IV when possible (2) Atrial fibrillation: Paroxysmal atrial fibrillation and flutter-follows with cardiology In sinus rhythm here -Holding p.o. amiodarone from home-would only start IV amiodarone if goes into A. fib while here -Is supposedly on Coumadin at home, however his INR on admission was only 1.0 and I cannot find record that his INR has been checked since November 2017- nonetheless, hold Coumadin -Start heparin drip if goes in atrial fibrillation while here -Holding home p.o. metoprolol and will give IV Lopressor as needed for tachycardia -Monitor on telemetry (3) Asthma: Stable, no acute issues -Continue home Advair, albuterol nebs as needed (4) Sleep apnea: Continue home CPAP 14 cm H2O (5) Hypertension: Blood pressures acceptable -Holding home p.o. metoprolol and will give IV Lopressor as needed as above (6) Hypothyroidism: TSH mildly elevated recently as an outpatient was advised to increase levothyroxine 88 mcg -Holding home p.o. levothyroxine -Start IV levothyroxine 44 mcg daily in the morning (7) Diabetes mellitus, type 2: With severe hyperglycemia here at 479 upon admission, no evidence of acidosis other than mildly elevated beta hydroxybutyric acid. Hyperglycemia likely secondary to stress of illness plus recent dosing of methylprednisolone -Was given regular insulin 10 units IV x1 upon admission -Start Lantus 8 units once daily -We will treat with NovoLog supplemental insulin every 4 hours with Accu-Cheks -Giving IV fluids for hydration -Check hemoglobin A1c in the morning -Holding home metformin, glipizide, and Januvia (8) Gout: With acute flare of the right ankle-treated with methylprednisolone x2 doses -Hold off on further steroids at this time as could contribute to friability of the bowel -Would not treat with NSAIDs or colchicine given renal failure -Observe for worsening (9) CKD (chronic kidney disease) stage 3, GFR 30-59 ml/min: Baseline creatinine around 2.0, GFR just above 30. Creatinine upon admission is 2.0 and ne to 2.1 on repeat check Does not appear volume overloaded. Does have mild hyperkalemia which improved with insulin and hydration -Avoid nephrotoxins -Renally dose medications Follow urine output -Follow BMP (10) Chronic diastolic CHF (congestive heart failure): Long history of such and also with previous history of systolic dysfunction secondary to tachyarrhythmia induced cardiomyopathy which is now resolved He is volume down/dehydrated at this time -Giving IV fluids -Hold home Bumex -Daily weights, I's and O's (11) Thrombocytopenia: Platelets normally hanging out around 100 K for at least the last 5 years, here at 79K and likely secondary to acute illness Unclear diagnosis-does he have history of ITP? There is no evidence of splenomegaly on his CT scan of the abdomen/pelvis -Follow CBC -If needed surgery, could consider platelet transfusion (12) Hyperkalemia: Potassium elevated at 5.6 on admission and improved 5.1 with administration of IV fluids and IV insulin. No acute changes of hyperkalemia on ECG noted He has a chronic history of hyperkalemia likely secondary to his chronic kidney disease -Repeat BMP again in the morning and if further elevated, would give calcium gl uconate, higher doses of insulin along with D50, albuterol (13) DVT prophylaxis: SCDkiarra, SARAH rivera Hold off on chemo prophylaxis at this time in case of need for surgical intervention Disposition-admit to telemetry Full code Patient reports that if he were in a vegetative-like state requiring life support, he would not want to live that way if there was no hope for recovery He designates his older brother Bang Johnson as his healthcare spokesperson if needed History of Present Illness Chief Complaint: Abdominal pain Primary Care Provider: Jf Taylor MD This patient is a very pleasant 63-year-old male with a history of DM 2, paroxysmal atrial flutter and fibrillation on Coumadin, gout, hypothyroidism, asthma, chronic diastolic CHF, diverticulitis, AARON on CPAP, and CKD stage III who presents to the ER with acute onset of right lower quadrant pain that started at 8:00 last night. Reports going to his primary care provider yesterday for a flareup of gout in his right ankle. He had taken 2 doses of his methylprednisolone before the onset of his abdominal pain. He tried taking a laxative but the pain remained severe at a 10 out of 10 in the right lower quadrant. It was nonradiating, worse with sitting upright. He denied nausea or vomiting. He had a small bowel movement this morning that was nonbloody and no melena. He came to the hospital via EMS where he was found to have a right sided sigmoid diverticulitis with perforation with pneumoperitoneum on CT scan of the abdomen/pelvis. His blood sugar was also found to be greater than 400 and he was febrile. At the time I saw him, he had received IV Dilaudid, 1 dose of IV Zosyn, and 500 mL's of normal saline. He was already feeling much improved and reported his abdominal pain was down to a 2/10 in severity. I discussed the case with the ER physician in the general surgeon on-call at the time of admission. He will be admitted for sigmoid diverticulitis with bowel perforation Allergies Allergy/AdvReac Type Severity Reaction Status Date / Time furosemide [From Lasix] AdvReac Rash Verified 07/20/18 04:19 Home Medications Home Medications Medication Instructions Recorded Confirmed Type Januvia 100 mg PO QDL 02/03/18 07/20/18 History amiodarone 200 mg PO QAM 02/03/18 07/20/18 History bumetanide 1 mg PO QPM 02/03/18 07/20/18 History fluticasone propion-salmeterol 1 inh INHALATION BID 02/03/18 07/20/18 History [Advair Diskus] magnesium oxide 800 mg PO BID 02/03/18 07/20/18 History metoprolol tartrate 25 mg PO BID 02/03/18 07/20/18 History warfarin 6 mg PO QPM 02/03/18 07/20/18 History blood sugar diagnostic strips #10 ea 07/19/18 07/20/18 Rx glipizide 10 mg tablet 10 mg PO BID #60 tab 07/19/18 07/20/18 Rx methylprednisolone 4 mg tablet 4 mg PO .COMPLEX #15 tab 07/19/18 07/20/18 Rx peg 3350-electrolytes 227.1 240 ml PO Q10M #1 ea 07/19/18 07/20/18 Rx gram-21.5 gram-6.36gram oral powder packet levothyroxine 88 mcg PO QAM 07/20/18 07/20/18 History metformin 500 mg PO BID 07/20/18 07/20/18 History Past Med/Surg History Medical History CKD (chronic kidney disease) stage 3, GFR 30-59 ml/min Chronic diastolic CHF (congestive heart failure) Gout Asthma inhaler daily Atrial fibrillation follows with Dr. 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" History of strabismus surgery bilt History of surgery penile implant History of tooth extraction wisdom teeth Status post cervical spinal fusion normal ROM Family History Father Family history of diabetes mellitus Sister Family history of diabetes mellitus Brother Family history of diabetes mellitus Mother Cancer Stomach cancer Social History Preferred Language: Kenyan Communication Ability: Effective Acquisitions Logistics Analyst Required: No Beliefs That Will Affect Care: None marital status: Current Living Situation: Alone current occupational status: employed current occupation: Works at [employer] Other Information That Helps Us Care for You: No Feels Safe at Home: Yes Safety Concerns: Feels Safe At This Time Smoking Status: Former smoker Tobacco Type: cigarettes and smokeless tobacco packs per day: 1 Years Smoked: 15 Do You Dip or Chew Tobacco: Yes Smoking End Date: 1980 Second Hand Exposure: Yes (father smoked) Tobacco Cessation Education Requested by Patient: No Hx Alcohol Use: Yes Alcohol type: beer Hx Substance Use: No Review of Systems Review of Systems: All systems reviewed & are unremarkable except as noted in HPI & below (Right foot and ankle pain is now resolved) Physical Exam Constitutional: WD/WN, vitals as above (Resting but wakes up easily and answers questions appropriately) Eyes: PERRL, conjunctivae normal, anicteric sclerae ENMT: Ears: no hearing impairment and no external ear abnormality Nose: + external nose abnormality (Bulbous nose) and + dry nasal mucous membranes Mouth: + oral mucosal abnormality (Very dry) Neck: trachea midline, no thyromegaly Respiratory: normal respiratory effort, lungs clear to auscultation Cardiovascular: RRR, no murmur, no edema Gastrointestinal (Abdomen): Inspection/Auscultation: abdomen normal to inspection, + abdomen distended (Mild) and + hypoactive bowel sounds Percussion/Palpation: + abdomen tender (Diffusely tender right lower quadrant greater than left lower quadrant, softer on the left) and + guarding (In the right lower quadrant); abdomen not rigid and no hernia Musculoskeletal: Extremities: + extremities abnormal to inspection (Mild erythema and tenderness to palpation of the right lateral ankle with full range of motion of ankle), no cyanosis and no clubbing Skin: + erythema (Rosacea of the cheeks and nose) Neurologic: moves all extremities and awake; no focal motor deficits Psychiatric: A+Ox3, euthymic affect Results & Data Vital Signs (Past 12 Hours) Vital Signs Temp Pulse Pulse Resp BP BP Pulse Ox 07/20/18 07:45 67 18 116/69 96 07/20/18 06:15 64 20 134/70 97 07/20/18 06:00 63 19 132/73 97 07/20/18 05:54 67 20 149/74 H 98 07/20/18 05:51 66 21 149/74 H 95 07/20/18 05:34 67 21 99 07/20/18 05:33 67 21 134/78 99 07/20/18 05:30 67 19 99 07/20/18 05:00 68 20 98 07/20/18 04:52 68 68 24 132/79 132/79 98 07/20/18 04:30 72 26 H 07/20/18 04:00 75 23 93 07/20/18 03:52 38.2 C H 75 23 164/82 H 94 07/20/18 03:50 74 18 92 07/20/18 03:49 74 19 94 Laboratory Results 07/20/18 07/20/18 07/20/18 Range/Units 18:11 16:27 12:28 WBC (4.8-10.8) K/uL RBC (4.7-6.1) M/uL Hgb (14.0-18.0) g/dL Hct (42-52) % MCV (80-100) fL MCH (25-34) pg MCHC (32-36) g/dL RDW Std Deviation (36.4-46.3) fL RDW Coeff of Guy (11.5-14.5) % Plt Count (130-400) K/uL MPV (7.4-10.4) fL Immature Gran % (Auto) % Neut % (Auto) % Lymph % (Auto) % Cook % (Auto) % Eos % (Auto) % Baso % (Auto) % Immature Gran # (Auto) (0.00-0.02) K/uL Neut # (Auto) (1.4-6.5) K/uL Lymph # (Auto) (1.2-3.4) K/uL Cook # (Auto) (0.11-0.59) K/uL Eos # (Auto) (0-0.5) K/uL Baso # (Auto) (0-0.2) K/uL Platelet Estimate (Normal) PT (9.0-12.0) Seconds INR (0.9-1.1) APTT (21.0-31.0) Seconds PTT Ratio Sodium (136-145) mmol/L Potassium (3.5-5.1) mmol/L Chloride (98-107) mmol/L Carbon Dioxide (21-32) mmol/L Anion Gap (3-11) BUN (7-18) mg/dl Creatinine (0.6-1.4) mg/dl Est Cr Clr Drug Dosing ml/min Est GFR ( Amer) Est GFR (Non-Af Amer) BUN/Creatinine Ratio (10-20) Glucose (70-99) mg/dl POC Glucose 163 H 204 H (70-99) Lactate 0.8 (0.4-2.0) mmol/L Calcium (8.5-10.1) mg/dl Total Bilirubin (0.2-1) mg/dl AST (15-37) U/L ALT (12-78) U/L Alkaline Phosphatase (45-117) U/L Troponin I (0-0.045) ng/ml Total Protein (6.4-8.2) gm/dl Albumin (3.4-5.0) gm/dl Globulin (2.5-4.0) gm/dl Albumin/Globulin Ratio (0.9-2) Lipase (73-393) U/L Beta-Hydroxybutyric Acd (0.2-2.81) mg/dl 07/20/18 07/20/18 07/20/18 Range/Units 12:28 11:27 08:44 WBC (4.8-10.8) K/uL RBC (4.7-6.1) M/uL Hgb (14.0-18.0) g/dL Hct (42-52) % MCV (80-100) fL MCH (25-34) pg MCHC (32-36) g/dL RDW Std Deviation (36.4-46.3) fL RDW Coeff of Guy (11.5-14.5) % Plt Count (130-400) K/uL MPV (7.4-10.4) fL Immature Gran % (Auto) % Neut % (Auto) % Lymph % (Auto) % Cook % (Auto) % Eos % (Auto) % Baso % (Auto) % Immature Gran # (Auto) (0.00-0.02) K/uL Neut # (Auto) (1.4-6.5) K/uL Lymph # (Auto) (1.2-3.4) K/uL Cook # (Auto) (0.11-0.59) K/uL Eos # (Auto) (0-0.5) K/uL Baso # (Auto) (0-0.2) K/uL Platelet Estimate (Normal) PT (9.0-12.0) Seconds INR (0.9-1.1) APTT (21.0-31.0) Seconds PTT Ratio Sodium 140 (136-145) mmol/L Potassium 5.2 H (3.5-5.1) mmol/L Chloride 108 H (98-107) mmol/L Carbon Dioxide 26 (21-32) mmol/L Anion Gap 6.0 (3-11) BUN 36 H (7-18) mg/dl Creatinine 2.13 H (0.6-1.4) mg/dl Est Cr Clr Drug Dosing 42.1 ml/min Est GFR ( Amer) 36.5 Est GFR (Non-Af Amer) 31.5 BUN/Creatinine Ratio 17.0 (10-20) Glucose 160 H (70-99) mg/dl POC Glucose 171 H 202 H (70-99) Lactate (0.4-2.0) mmol/L Calcium 8.6 (8.5-10.1) mg/dl Total Bilirubin (0.2-1) mg/dl AST (15-37) U/L ALT (12-78) U/L Alkaline Phosphatase (45-117) U/L Troponin I (0-0.045) ng/ml Total Protein (6.4-8.2) gm/dl Albumin (3.4-5.0) gm/dl Globulin (2.5-4.0) gm/dl Albumin/Globulin Ratio (0.9-2) Lipase (73-393) U/L Beta-Hydroxybutyric Acd (0.2-2.81) mg/dl 07/20/18 07/20/18 07/20/18 Range/Units 07:33 04:40 04:20 WBC (4.8-10.8) K/uL RBC (4.7-6.1) M/uL Hgb (14.0-18.0) g/dL Hct (42-52) % MCV (80-100) fL MCH (25-34) pg MCHC (32-36) g/dL RDW Std Deviation (36.4-46.3) fL RDW Coeff of Guy (11.5-14.5) % Plt Count (130-400) K/uL MPV (7.4-10.4) fL Immature Gran % (Auto) % Neut % (Auto) % Lymph % (Auto) % Cook % (Auto) % Eos % (Auto) % Baso % (Auto) % Immature Gran # (Auto) (0.00-0.02) K/uL Neut # (Auto) (1.4-6.5) K/uL Lymph # (Auto) (1.2-3.4) K/uL Cook # (Auto) (0.11-0.59) K/uL Eos # (Auto) (0-0.5) K/uL Baso # (Auto) (0-0.2) K/uL Platelet Estimate (Normal) PT (9.0-12.0) Seconds INR (0.9-1.1) APTT (21.0-31.0) Seconds PTT Ratio Sodium 137 (136-145) mmol/L Potassium 5.6 H (3.5-5.1) mmol/L Chloride 103 (98-107) mmol/L Carbon Dioxide 30 (21-32) mmol/L Anion Gap 4.0 (3-11) BUN 35 H (7-18) mg/dl Creatinine 2.01 H (0.6-1.4) mg/dl Est Cr Clr Drug Dosing 44.6 ml/min Est GFR ( Amer) 39.2 Est GFR (Non-Af Amer) 33.8 BUN/Creatinine Ratio 17.6 (10-20) Glucose 418 H* (70-99) mg/dl POC Glucose 479 H* (70-99) Lactate 1.2 (0.4-2.0) mmol/L Calcium 8.5 (8.5-10.1) mg/dl Total Bilirubin 0.6 (0.2-1) mg/dl AST 8 L (15-37) U/L ALT 18 (12-78) U/L Alkaline Phosphatase 62 (45-117) U/L Troponin I 0.016 (0-0.045) ng/ml Total Protein 6.6 (6.4-8.2) gm/dl Albumin 3.7 (3.4-5.0) gm/dl Globulin 2.9 (2.5-4.0) gm/dl Albumin/Globulin Ratio 1.3 (0.9-2) Lipase 137 (73-393) U/L Beta-Hydroxybutyric Acd 5.00 H (0.2-2.81) mg/dl 07/20/18 07/20/18 Range/Units 04:20 04:20 WBC 7.59 (4.8-10.8) K/uL RBC 5.10 (4.7-6.1) M/uL Hgb 15.1 (14.0-18.0) g/dL Hct 44.0 (42-52) % MCV 86.3 (80-100) fL MCH 29.6 (25-34) pg MCHC 34.3 (32-36) g/dL RDW Std Deviation 44.2 (36.4-46.3) fL RDW Coeff of Guy 14.1 (11.5-14.5) % Plt Count 79 L (130-400) K/uL MPV 10.6 H (7.4-10.4) fL Immature Gran % (Auto) 0.3 % Neut % (Auto) 86.8 % Lymph % (Auto) 4.1 % Cook % (Auto) 8.6 % Eos % (Auto) 0.1 % Baso % (Auto) 0.1 % Immature Gran # (Auto) 0.02 (0.00-0.02) K/uL Neut # (Auto) 6.59 H (1.4-6.5) K/uL Lymph # (Auto) 0.31 L (1.2-3.4) K/uL Cook # (Auto) 0.65 H (0.11-0.59) K/uL Eos # (Auto) 0.01 (0-0.5) K/uL Baso # (Auto) 0.01 (0-0.2) K/uL Platelet Estimate Decreased L (Normal) PT 10.6 (9.0-12.0) Seconds INR 1.0 (0.9-1.1) APTT 23.6 (21.0-31.0) Seconds PTT Ratio 0.9 Sodium (136-145) mmol/L Potassium (3.5-5.1) mmol/L Chloride (98-107) mmol/L Carbon Dioxide (21-32) mmol/L Anion Gap (3-11) BUN (7-18) mg/dl Creatinine (0.6-1.4) mg/dl Est Cr Clr Drug Dosing ml/min Est GFR ( Amer) Est GFR (Non-Af Amer) BUN/Creatinine Ratio (10-20) Glucose (70-99) mg/dl POC Glucose (70-99) Lactate (0.4-2.0) mmol/L Calcium (8.5-10.1) mg/dl Total Bilirubin (0.2-1) mg/dl AST (15-37) U/L ALT (12-78) U/L Alkaline Phosphatase (45-117) U/L Troponin I (0-0.045) ng/ml Total Protein (6.4-8.2) gm/dl Albumin (3.4-5.0) gm/dl Globulin (2.5-4.0) gm/dl Albumin/Globulin Ratio (0.9-2) Lipase (73-393) U/L Beta-Hydroxybutyric Acd (0.2-2.81) mg/dl Diagnostic Findings ABDOMEN AND PELVIS CT WITHOUT CONTRAST CT DOSE: 1371.02 mGy.cm HISTORY: Acute right lower quadrant abdominal pain eval for appy TECHNIQUE: Multiaxial CT images of the abdomen and pelvis were performed without contrast. A dose lowering technique was utilized adhering to the principles of ALARA. COMPARISON STUDY: CTA of the chest 06/24/2013. FINDINGS: Mild bronchial wall thickening at the level of the lung bases. Minimal dependent subsegmental bibasilar atelectasis. Imaged inferior cardiac chambers are enlarged. No pericardial effusion. Scattered calcified granulomata noted about the spleen. The liver, gallbladder, pancreas and adrenal gland appear unremarkable. 1.2 cm hypodense lesion of the right adrenal gland is suggestive of an adenoma. Mild to moderate nonspecific bilateral perinephric stranding. No urolith or obstructive uropathy. Hypodense lesion of the superior pole right kidney suggests cyst, 3.0 cm. Prostamegaly. Urinary bladder is unremarkable. A penile prosthesis is noted. Mild calcified plaque of the aorta without aneurysm. No adenopathy. No bowel obstruction. Tortuous sigmoid colon. Wall thickening with pericolonic stranding is noted about the sigmoid colon within the abdominal right lower quadrant centered about an inflamed diverticula. There is a cluster of pneumoperitoneum with stranding and trace free fluid about a sigmoid diverticulum on image 340 series 3 compatible with perforation. No drainable fluid collection. Mild pneumoperitoneum extends into the upper abdomen. No pneumatosis. A tiny air and fluid-filled tract is noted extending towards the ascending colon on image 339 of series 3. Terminal ileum and appendix appear normal. Tiny fat filled periumbilical hernia contains mild stranding and trace fluid, diastases 1.7 cm. Bones appear to be intact. Degenerative changes of the spine, pelvis and hips. IMPRESSION: 1. Acute sigmoid diverticulitis with perforation. Inflammatory stranding with trace fluid noted about the abdominal right lower quadrant. No drainable fluid collection identified at this time. Surgical consultation is needed. 2. No bowel obstruction. 3. Normal appendix. 4. Additional incidental findings as above. ECG Additional Comments: Sinus rhythm with first-degree AV block and nonspecific intraventricular conduction delay, no ischemic changes, nonspecific T wave inversions in aVL Code Status & VTE Plan Code Status Full code VTE Prophylaxis Plan VTE Prophylaxis will be ordered: Yes Reason for no VTE drug order: Contraindicated Critical Care Time Critical Care Time: No (1) Diverticulitis of colon with perforation Diverticulitis bleeding: without bleeding Qualified Code(s): K57.20 - Diverticulitis of large intestine with perforation and abscess without bleeding
--- NOTE | 2018-07-20 08:53 | Surgery Consultation ---
Date of Consultation July 20, 2018 Assessment & Plan (1) Diverticulitis of colon with perforation: Mr. Johnson is a 63 yo male who presents with acute perforated diverticulitis. CT scan reveals sigmoid diverticulitis with colonic wall thickening with pericolonic stranding, trace free fluid, and adjacent pneumoperitoneum as well as a small amount of air and fluid tracking toward the ascending colon. He is febrile but vitals remain stable and unchanged and currently has no leukocytosis, though he is quite tender in his RLQ. Discussed diverticulitis etiology with the patient and usual treatment options, including antibiotics with potential need for surgery. Discussed in the emergent or urgent setting surgery usually results in an ostomy and goal in stable patients is to manage with NPO and IV antibiotics. In the elective setting with perforated diverticulitis recommendation is for colonoscopy and discussion about potential elective colonic resection. - Attempt conservative management with IVF and IV abx - Strict NPO, if there are PO meds that are absolutely necessary can attempt to take with sips of water but there is uncertainty in absorption especially if pt develops expected ileus - Broad spectrum abx - Serial abdominal exams and close observation - Discussed potential need for surgical intervention if clinical deterioration - Recommend TEDS, SCDs, and VTE chemoprophylaxis - Will need outpatient colonoscopy after acute episode resolves History of Present Illness Reason for Consultation: Diverticulitis History of Present Illness Mr. Johnson is a 63 yo male with PMHx significant for but not limited to diastolic heart failure, A-fib, on Coumadin, diabetes, CKD 4, and gout who recently started methylprednisolone for a gout flare. He began experiencing abdominal pain after taking his second dose. Last night he began to experience 10/10 RLQ abdominal pain radiating to his back, so presented to the ED. He denies associated nausea or vomiting. On arrival he had a temp of 38.2 and vitals were unremarkable. He had no leukocytosis and glucose was 418. CT scan was completed showing perforated diverticulitis. The patient states the pain is slightly better compared to when he first presented, but he did receive narcotics. He reports an episode of diverticulitis 30 years ago, but states it was treated with a barium enema. He reports his last colonoscopy was 6 months ago, but the prep was poor and needs to be repeated. Prior scope was 5 years ago and states he has no history of polyps. He is flushed, but states he has "milind cheeks" at baseline. Denies chest pain and dyspnea. Allergies Allergy/AdvReac Type Severity Reaction Status Date / Time furosemide [From Lasix] AdvReac Rash Verified 07/20/18 04:19 Home Medications Home Medications Medication Instructions Recorded Confirmed Type Januvia 100 mg PO QDL 02/03/18 07/20/18 History amiodarone 200 mg PO QAM 02/03/18 07/20/18 History bumetanide 1 mg PO QPM 02/03/18 07/20/18 History fluticasone propion-salmeterol 1 inh INHALATION BID 02/03/18 07/20/18 History [Advair Diskus] magnesium oxide 800 mg PO BID 02/03/18 07/20/18 History metoprolol tartrate 25 mg PO BID 02/03/18 07/20/18 History warfarin 6 mg PO QPM 02/03/18 07/20/18 History blood sugar diagnostic strips #10 ea 07/19/18 07/20/18 Rx glipizide 10 mg tablet 10 mg PO BID #60 tab 07/19/18 07/20/18 Rx methylprednisolone 4 mg tablet 4 mg PO .COMPLEX #15 tab 07/19/18 07/20/18 Rx peg 3350-electrolytes 227.1 240 ml PO Q10M #1 ea 07/19/18 07/20/18 Rx gram-21.5 gram-6.36gram oral powder packet levothyroxine 75 mcg PO DAILY 07/20/18 07/20/18 History metformin 500 mg PO BID 07/20/18 07/20/18 History Patient History Medical History Asthma inhaler daily Atrial fibrillation follows with Dr. 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" History of strabismus surgery bilt History of surgery penial implant History of tooth extraction wisdom teeth Status post cervical spinal fusion normal ROM Family History Father Family history of diabetes mellitus Sister Family history of diabetes mellitus Brother Family history of diabetes mellitus Social History Preferred Language: Irish Communication Ability: Effective Bookkeeping Assistant Required: No Beliefs That Will Affect Care: None Current Living Situation: Family Other Information That Helps Us Care for You: No Feels Safe at Home: Yes Safety Concerns: Feels Safe At This Time Smoking Status: Former smoker Tobacco Type: smokeless tobacco Do You Dip or Chew Tobacco: Yes Second Hand Exposure: Yes (father smoked) Tobacco Cessation Education Requested by Patient: No Hx Alcohol Use: No Hx Substance Use: No Review of Systems Constitutional: no chills and no sweats Respiratory: no cough and no dyspnea Cardiovascular: no chest pain Gastrointestinal: See HPI Physical Exam Constitutional: well developed and well nourished mild distress Eyes: PERRL, conjunctivae normal, anicteric sclerae ENMT: tongue and mouth appear dry; flushed cheeks and nose Neck: normal visual inspection Respiratory: normal respiratory effort, lungs clear to auscultation Cardiovascular: Rate/Rhythm: regular rate and regular rhythm Gastrointestinal (Abdomen): soft, distended, lower abdominal tenderness, R>L with voluntary guarding Musculoskeletal: no edema Skin: no rashes, warm and dry Neurologic: alert Results & Data Vital Signs (Past 12 Hours) Vital Signs Temp Pulse Pulse Resp BP BP Pulse Ox 07/20/18 07:45 67 18 116/69 96 07/20/18 06:15 64 20 134/70 97 07/20/18 06:00 63 19 132/73 97 07/20/18 05:54 67 20 149/74 H 98 07/20/18 05:51 66 21 149/74 H 95 07/20/18 05:34 67 21 99 07/20/18 05:33 67 21 134/78 99 07/20/18 05:30 67 19 99 07/20/18 05:00 68 20 98 07/20/18 04:52 68 68 24 132/79 132/79 98 07/20/18 04:30 72 26 H 07/20/18 04:00 75 23 93 07/20/18 03:52 38.2 C H 75 23 164/82 H 94 07/20/18 03:50 74 18 92 07/20/18 03:49 74 19 94 Laboratory Results 07/20/18 07/20/18 07/20/18 Range/Units 11:27 07:33 04:40 WBC (4.8-10.8) K/uL RBC (4.7-6.1) M/uL Hgb (14.0-18.0) g/dL Hct (42-52) % MCV (80-100) fL MCH (25-34) pg MCHC (32-36) g/dL RDW Std Deviation (36.4-46.3) fL RDW Coeff of Guy (11.5-14.5) % Plt Count (130-400) K/uL MPV (7.4-10.4) fL Immature Gran % (Auto) % Neut % (Auto) % Lymph % (Auto) % [facility] % (Auto) % Eos % (Auto) % Baso % (Auto) % Immature Gran # (Auto) (0.00-0.02) K/uL Neut # (Auto) (1.4-6.5) K/uL Lymph # (Auto) (1.2-3.4) K/uL [facility] # (Auto) (0.11-0.59) K/uL Eos # (Auto) (0-0.5) K/uL Baso # (Auto) (0-0.2) K/uL Platelet Estimate (Normal) PT (9.0-12.0) Seconds INR (0.9-1.1) APTT (21.0-31.0) Seconds PTT Ratio Sodium (136-145) mmol/L Potassium (3.5-5.1) mmol/L Chloride (98-107) mmol/L Carbon Dioxide (21-32) mmol/L Anion Gap (3-11) BUN (7-18) mg/dl Creatinine (0.6-1.4) mg/dl Est Cr Clr Drug Dosing ml/min Est GFR ( Amer) Est GFR (Non-Af Amer) BUN/Creatinine Ratio (10-20) Glucose (70-99) mg/dl POC Glucose 171 H 479 H* (70-99) Lactate 1.2 (0.4-2.0) mmol/L Calcium (8.5-10.1) mg/dl Total Bilirubin (0.2-1) mg/dl AST (15-37) U/L ALT (12-78) U/L Alkaline Phosphatase (45-117) U/L Troponin I (0-0.045) ng/ml Total Protein (6.4-8.2) gm/dl Albumin (3.4-5.0) gm/dl Globulin (2.5-4.0) gm/dl Albumin/Globulin Ratio (0.9-2) Lipase (73-393) U/L Beta-Hydroxybutyric Acd (0.2-2.81) mg/dl 07/20/18 07/20/18 07/20/18 Range/Units 04:20 04:20 04:20 WBC 7.59 (4.8-10.8) K/uL RBC 5.10 (4.7-6.1) M/uL Hgb 15.1 (14.0-18.0) g/dL Hct 44.0 (42-52) % MCV 86.3 (80-100) fL MCH 29.6 (25-34) pg MCHC 34.3 (32-36) g/dL RDW Std Deviation 44.2 (36.4-46.3) fL RDW Coeff of Guy 14.1 (11.5-14.5) % Plt Count 79 L (130-400) K/uL MPV 10.6 H (7.4-10.4) fL Immature Gran % (Auto) 0.3 % Neut % (Auto) 86.8 % Lymph % (Auto) 4.1 % [facility] % (Auto) 8.6 % Eos % (Auto) 0.1 % Baso % (Auto) 0.1 % Immature Gran # (Auto) 0.02 (0.00-0.02) K/uL Neut # (Auto) 6.59 H (1.4-6.5) K/uL Lymph # (Auto) 0.31 L (1.2-3.4) K/uL [facility] # (Auto) 0.65 H (0.11-0.59) K/uL Eos # (Auto) 0.01 (0-0.5) K/uL Baso # (Auto) 0.01 (0-0.2) K/uL Platelet Estimate Decreased L (Normal) PT 10.6 (9.0-12.0) Seconds INR 1.0 (0.9-1.1) APTT 23.6 (21.0-31.0) Seconds PTT Ratio 0.9 Sodium 137 (136-145) mmol/L Potassium 5.6 H (3.5-5.1) mmol/L Chloride 103 (98-107) mmol/L Carbon Dioxide 30 (21-32) mmol/L Anion Gap 4.0 (3-11) BUN 35 H (7-18) mg/dl Creatinine 2.01 H (0.6-1.4) mg/dl Est Cr Clr Drug Dosing 44.6 ml/min Est GFR ( Amer) 39.2 Est GFR (Non-Af Amer) 33.8 BUN/Creatinine Ratio 17.6 (10-20) Glucose 418 H* (70-99) mg/dl POC Glucose (70-99) Lactate (0.4-2.0) mmol/L Calcium 8.5 (8.5-10.1) mg/dl Total Bilirubin 0.6 (0.2-1) mg/dl AST 8 L (15-37) U/L ALT 18 (12-78) U/L Alkaline Phosphatase 62 (45-117) U/L Troponin I 0.016 (0-0.045) ng/ml Total Protein 6.6 (6.4-8.2) gm/dl Albumin 3.7 (3.4-5.0) gm/dl Globulin 2.9 (2.5-4.0) gm/dl Albumin/Globulin Ratio 1.3 (0.9-2) Lipase 137 (73-393) U/L Beta-Hydroxybutyric Acd 5.00 H (0.2-2.81) mg/dl Diagnostic Findings (07/20/18) CT Abdomen/Pelvis: FINDINGS: Mild bronchial wall thickening at the level of the lung bases. Minimal dependent subsegmental bibasilar atelectasis. Imaged inferior cardiac chambers are enlarged. No pericardial effusion. Scattered calcified granulomata noted about the spleen. The liver, gallbladder, pancreas and adrenal gland appear unremarkable. 1.2 cm hypodense lesion of the right adrenal gland is suggestive of an adenoma. Mild to moderate nonspecific bilateral perinephric stranding. No urolith or obstructive uropathy. Hypodense lesion of the superior pole right kidney suggests cyst, 3.0 cm. Prostamegaly. Urinary bladder is unremarkable. A penile prosthesis is noted. Mild calcified plaque of the aorta without aneurysm. No adenopathy. No bowel obstruction. Tortuous sigmoid colon. Wall thickening with pericolonic stranding is noted about the sigmoid colon within the abdominal right lower quadrant centered about an inflamed diverticula. There is a cluster of pneumoperitoneum with stranding and trace free fluid about a sigmoid diverticulum on image 340 series 3 compatible with perforation. No drainable fluid collection. Mild pneumoperitoneum extends into the upper abdomen. No pneumatosis. A tiny air and fluid-filled tract is noted extending towards the ascending colon on image 339 of series 3. Terminal ileum and appendix appear normal. Tiny fat filled periumbilical hernia contains mild stranding and trace fluid, diastases 1.7 cm. Bones appear to be intact. Degenerative changes of the spine, pelvis and hips. IMPRESSION: 1. Acute sigmoid diverticulitis with perforation. Inflammatory stranding with trace fluid noted about the abdominal right lower quadrant. No drainable fluid collection identified at this time. Surgical consultation is needed. 2. No bowel obstruction. 3. Normal appendix. 4. Additional incidental findings as above. (1) Diverticulitis of colon with perforation Diverticulitis bleeding: without bleeding Qualified Code(s): K57.20 - Diverticulitis of large intestine with perforation and abscess without bleeding
[2018-07-20] MEDS ORDERED: DEXTROSE 50% 50 ML SYRINGE IV PRN (09:46)
[2018-07-20] MEDS ORDERED: CARBOHYDRATES FOR HYPOGLYCEMIA PO PRN (09:46)
[2018-07-20] MEDS ORDERED: ONDANSETRON INJ 2 MG/ML 2 ML VIAL IV PRN (09:46)
[2018-07-20] MEDS ORDERED: HYDROmorphone INJ 1 MG/ML SYRINGE IV PRN (09:46)
[2018-07-20] MEDS ORDERED: GLUCOSE 40% GEL 15 GM TUBE PO PRN (09:46)
[2018-07-20] MEDS ORDERED: GLUCAGON FOR INJ 1 MG VIAL SQ PRN (09:46)
[2018-07-20] MEDS ORDERED: ALBUT/IPRATROP 3MG/0.5MG NEB 3 ML VIAL NEB PRN (09:46)
[2018-07-20] MEDS ORDERED: GLUCOSE 10 TABS/TUBE PO PRN (09:46)
[2018-07-20] MEDS ORDERED: LEVOTHYROXINE SODIUM 37.5 MCG in SYRINGE 0 ML IV SCH (10:00)
[2018-07-20] MEDS ORDERED: METOPROLOL TARTRATE 1 MG/ML VIAL IV PRN (10:30)
[2018-07-20] MEDS: FLUTICASONE/SALMETEROL (ADVAIR) 500/50 INH 14 PUFF INH SCH ×2 (11:01→20:37)
[2018-07-20] MEDS: SODIUM CHLORIDE 0.9% 1000ML 1,000 ML IV SCH ×2 (11:01→20:39)
[2018-07-20] MEDS: INSULIN GLARGINE SOLOSTAR 100 UNITS/ML 3 ML PEN SC SCH (11:02)
[2018-07-20] MEDS ORDERED: METOPROLOL TARTRATE 1 MG/ML VIAL IV SCH (12:00)
[2018-07-20] MEDS: PIPERACILLIN/TAZOBACTAM 3.375 GM in DEXTROSE 5% 100 ML IV SCH ×2 (12:09→20:37)
[2018-07-20] MEDS: INSULIN ASPART 100 UNITS/ML 3 ML PEN SC SCH ×2 (12:11→18:20)
[2018-07-20 13:09] LABS: Calcium 8.6 mg/dl (8.5-10.1); Creatinine Clr Calc Pharmacy 42.1 ml/min; Est GFR (African American) 36.5; Est GFR (Non-African American) 31.5; Potassium 5.2 mmol/L (3.5-5.1)
--- NOTE | 2018-07-20 14:49 | Communication Note ---
Date of Service: July 20, 2018 Serial Abdominal Exam Abdominal exam remains unchanged compared to this morning - distended, soft, lower abdominal tenderness (R>L) Pt states he is thirsty. States pain is more or less unchanged, he goes through episodes where pain gets more intense and then lessens but is still present
[2018-07-21] MEDS: INSULIN ASPART 100 UNITS/ML 3 ML PEN SC SCH ×5 (00:31→23:56)
[2018-07-21] MEDS ORDERED: ACETAMINOPHEN 65 ML IV ONE (01:45)
[2018-07-21] MEDS: PIPERACILLIN/TAZOBACTAM 3.375 GM in DEXTROSE 5% 100 ML IV SCH ×2 (03:29→12:00)
[2018-07-21] MEDS ORDERED: PNEUMOCOCCAL POLYSACCHARIDES 25 MCG/0.5 ML VIAL/SYR IM ONE (08:00)
[2018-07-21] MEDS ORDERED: PNEUMOCOCCAL ADMINISTRATION CHARGE ONE (08:00)
[2018-07-21 08:16] LABS: Hematocrit (blood only) 45.3 % (42-52); Hemoglobin 14.8 g/dL (14.0-18.0); Mean Corpuscular Hgb Conc 32.7 g/dL (32-36); Mean Corpuscular Volume 89.3 fL (80-100); RDW Coefficient of Variation 14.4 % (11.5-14.5); RDW Standard Deviation 46.8 fL (36.4-46.3); Red Blood Count 5.07 M/uL (4.7-6.1); White Blood Count 6.39 K/uL (4.8-10.8)
[2018-07-21 08:23] LABS: Mean Platelet Volume 10.5 fL (7.4-10.4); Platelet Count 66 K/uL (130-400)
[2018-07-21 08:26] LABS: INR 1.2 (0.9-1.1); Prothrombin Time 11.9 Seconds (9.0-12.0)
[2018-07-21] MEDS: FLUTICASONE/SALMETEROL (ADVAIR) 500/50 INH 14 PUFF INH SCH ×2 (08:29→21:18)
[2018-07-21] MEDS: INSULIN GLARGINE SOLOSTAR 100 UNITS/ML 3 ML PEN SC SCH (08:31)
[2018-07-21] MEDS: SODIUM CHLORIDE 0.9% 1000ML 1,000 ML IV SCH ×3 (08:31→21:18)
[2018-07-21] MEDS: LEVOTHYROXINE SODIUM 44 MCG in SYRINGE 0 ML IV SCH (08:33)
[2018-07-21 08:48] LABS: Albumin Level 2.9 gm/dl (3.4-5.0); BUN Creatinine Ratio 16.5 (10-20); Bilirubin Direct 0.3 mg/dl (0-0.2); Bilirubin,Total 0.6 mg/dl (0.2-1); Calcium 8.7 mg/dl (8.5-10.1); Creatinine Clr Calc Pharmacy 38.8 ml/min; Est GFR (African American) 33.1; Est GFR (Non-African American) 28.6; Magnesium 2.1 mg/dl (1.8-2.4)
[2018-07-21 08:49] LABS: Basophils # (auto) 0.01 K/uL (0-0.2); Basophils % (auto) 0.2 %; Eosinophils # (auto) 0.02 K/uL (0-0.5); Eosinophils % (auto) 0.3 %; Immature Granulocytes # (auto) 0.03 K/uL (0.00-0.02); Immature Granulocytes % (auto) 0.5 %; Lymphocytes # (auto) 0.31 K/uL (1.2-3.4); Lymphocytes % (auto) 4.9 %; Monocytes # (auto) 0.67 K/uL (0.11-0.59); Monocytes % (auto) 10.5 %; Neutrophils # (auto) 5.35 K/uL (1.4-6.5); Neutrophils % (auto) 83.6 %; Total Protein 6.7 gm/dl (6.4-8.2)
[2018-07-21 09:23] LABS: Estimated Average Glucose 200 mg/dl; Hemoglobin A1C 8.6 % (4.5-5.6)
[2018-07-21 10:39] LABS: Appearance Urine Turbid (Clear); Bacteria Urine Automated Negative (Negative); Bilirubin Urine Negative (Negative); Blood Urine 3+ (Negative); Color Urine Yellow; Glucose Urine UA Negative (Negative); Ketones Urine Trace (Negative); Leukocyte Esterase Urine Negative (Negative); Nitrite Urine Negative (Negative); Protein Urine 2+ (Negative); Specific Gravity Urine 1.024 (1.000-1.030); Urobilinogen Urine Negative (Negative)
--- NOTE | 2018-07-21 11:16 | Surgery Progress Note ---
Date of Service July 21, 2018 Assessment & Plan (1) Diverticulitis of colon with perforation: Mr. Johnson is a 63 yo male who presents with acute perforated diverticulitis. CT scan reveals sigmoid diverticulitis with colonic wall thickening with pericolonic stranding, trace free fluid, and adjacent pneumoperitoneum as well as a small amount of air and fluid tracking toward the ascending colon. He is febrile but vitals remain stable and unchanged and currently has no leukocytosis, though he is quite tender in his RLQ (improved on serial examinations). Discussed diverticulitis etiology with the patient and usual treatment options, including antibiotics with potential need for surgery. Discussed in the emergent or urgent setting surgery usually results in an ostomy and goal in stable patients is to manage with NPO and IV antibiotics. In the elective setting with perforated diverticulitis recommendation is for colonoscopy and discussion about potential elective colonic resection. Bacteremia- 2/2 positive blood cultures with gram negative and positive bacilli - Continue conservative management with IVF and IV abx - Strict NPO, if there are PO meds that are absolutely necessary can attempt to take with sips of water but there is uncertainty in absorption especially if pt develops expected ileus - Broad spectrum abx - Discussed potential need for surgical intervention if clinical deterioration - Recommend TEDS, SCDs, and VTE chemoprophylaxis - Will need outpatient colonoscopy after acute episode resolves (2) Bacteremia: 2/2 positive blood cultures with gram negative and positive bacilli Repeat blood cultures drawn today (07/21/18) Continue IV abx Supervising Physician Co-Signing Physician Notes I have seen and evaluated the patient and reviewed the medical record. I agree with the documentation as provided in this note by Hetal Michelle PA-C. Subjective pain is slightly better today no nausea or vomiting has not passed gas or had a bowel movement yet would like something to drink Physical Exam Constitutional: WD/WN, vitals as above + morbidly obese Respiratory: normal respiratory effort; no respiratory distress Gastrointestinal (Abdomen): Inspection/Auscultation: abdomen normal to inspection and + abdomen distended (mildly) Percussion/Palpation: + abdomen tender (RLQ), + guarding (RLQ) and abdomen soft; abdomen not rigid Less distended today. Not rigid. soft. Skin: + rash (erythema of the face (chronic at baseline)) Psychiatric: A+Ox3, euthymic affect Results & Data Vital Signs (Past 12 Hours) Vital Signs Temp Pulse Pulse Resp BP Pulse Ox 07/21/18 08:00 72 07/21/18 07:30 37.4 C 74 18 174/88 H 96 07/21/18 07:25 74 18 96 07/21/18 04:00 36.9 C 81 18 128/73 95 07/21/18 00:00 38.4 C H 71 16 150/76 H 92 (1) Diverticulitis of colon with perforation Diverticulitis bleeding: without bleeding Qualified Code(s): K57.20 - Diverticulitis of large intestine with perforation and abscess without bleeding
--- NOTE | 2018-07-21 19:27 | Hospitalist Progress Note ---
Date of Service July 21, 2018 Assessment & Plan (1) Diverticulitis of colon with perforation: Patient with right-sided sigmoid diverticulitis with perforation with pneumoperitoneum evident on CT scan. Presented with diffuse tenderness of the abdomen right greater than left with guarding on the right. Has been febrile but fevers ternding down today,not tachycardic, no leukocytosis, lactate is normal Overall improved today, moving bowels BCxs +for GNR in 1 bottle and GPRs in the other bottle -Appreciate general surgery consultation-no surgical intervention needed at this time -will continue serial abdominal exams -Continue IV Zosyn -follow repeat BCxs -continue IV fluids with normal saline and reduce dose back to 100 mLs/hr - follow urine output closely-not likely accurate as has voided in the toilet on several occasions - will likely need serial imaging as well-defer to general surgery -continue IV Dilaudid for pain control -Keep n.p.o. strictly (2) Atrial fibrillation: Paroxysmal atrial fibrillation and flutter-follows with cardiology Continues in sinus rhythm here -Holding p.o. amiodarone from home-would only start IV amiodarone if goes into A. fib while here -Is supposedly on Coumadin at home, however his INR on admission was only 1.0 and I cannot find record that his INR has been checked since November 2017- nonetheless, hold Coumadin -Start heparin drip if goes in atrial fibrillation while here -Holding home p.o. metoprolol and will give IV Lopressor as needed for tachycardia -Monitor on telemetry (3) Asthma: Stable, no acute issues -Continue home Advair, albuterol nebs as needed (4) Sleep apnea: Continue home CPAP 14 cm H2O (5) Hypertension: Blood pressures acceptable -Holding home p.o. metoprolol and will give IV Lopressor as needed as above (6) Hypothyroidism: TSH mildly elevated recently as an outpatient was advised to increase le vothyroxine 88 mcg -Holding home p.o. levothyroxine -cont IV levothyroxine 44 mcg daily in the morning (7) Diabetes mellitus, type 2: With severe hyperglycemia here at 479 upon admission, no evidence of acidosis other than mildly elevated beta hydroxybutyric acid. Hyperglycemia likely secondary to stress of illness plus recent dosing of methylprednisolone HgbA1C 8.6%, uncontrolled -Was given regular insulin 10 units IV x1 upon admission Glucose now much improved -continue Lantus 8 units once daily -cont NovoLog supplemental insulin every 4 hours with Accu-Cheks -Giving IV fluids for hydration -Holding home metformin, glipizide, and Januvia (8) Gout: With acute flare of the right ankle-treated with methylprednisolone x2 doses-now resolved -Hold off on further steroids at this time as could contribute to friability of the bowel -Would not treat with NSAIDs or colchicine given renal failure -Observe for worsening (9) CKD (chronic kidney disease) stage 3, GFR 30-59 ml/min: Baseline creatinine around 2.0, GFR just above 30. Creatinine upon admission is 2.0 and now up to 2.3 Does not appear volume overloaded. Does have mild hyperkalemia which is now improved -Avoid nephrotoxins -Renally dose medications Follow urine output -Follow BMP -continue IVFs with NS at 125 mL/hr (10) Chronic diastolic CHF (congestive heart failure): Long history of such and also with previous history of systolic dysfunction secondary to tachyarrhythmia induced cardiomyopathy which is now resolved He was volume down/dehydrated at the time of admission, now improved -continue giving IV fluids -Hold home Bumex -Daily weights, I's and O's (11) Thrombocytopenia: Platelets normally hanging out around 100 K for at least the last 5 years, here at 79K and likely secondary to acute illness Unclear diagnosis-does he have history of ITP? There is no evidence of splenomegaly on his CT scan of the abdomen/pelvis -Follow CBC-plts now down to 66k -If needed surgery, could consider platelet transfusion (12) Hyperkalemia: Potassium elevated at 5.6 on admission and improved now to 5.0 with administration of IV fluids and IV insulin. No acute changes of hyperkalemia on ECG noted He has a chronic history of hyperkalemia likely secondary to his chronic kidney disease -Repeat BMP again in the morning and if further elevated, would give calcium gluconate, higher doses of insulin along with D50, albuterol (13) DVT prophylaxis: VIPULs, SARAH rivera ok to start Lovenox SQ 30mg Disposition-continue on PCU Full code Patient reports that if he were in a vegetative-like state requiring life support, he would not want to live that way if there was no hope for recovery He designates his older brother Bang Johnson as his healthcare spokesperson if needed Subjective Pt reports feeling "much better." Abd pain is improving. He had a large BM today, nonbloody. No nausea. Still feels his mouth is very dry. Denies SOB or CP. Remains on 3LNC. Tele with NSR, rates 70s, 1st degree AV block Discussed the case with Gen Surgery Review of Systems Review of Systems: All systems reviewed & are unremarkable except as noted in HPI & below Physical Exam Constitutional: WD/WN, vitals as above (Resting but wakes up easily and answers questions appropriately) Eyes: PERRL, conjunctivae normal, anicteric sclerae ENMT: Ears: no hearing impairment and no external ear abnormality Nose: + external nose abnormality (Bulbous nose) Neck: trachea midline, no thyromegaly Respiratory: normal respiratory effort (with NC in place) Auscultation: + wheezes (scattered exp wheezes and rhonchi) Cardiovascular: RRR, no murmur, no edema Gastrointestinal (Abdomen): Inspection/Auscultation: abdomen normal to inspection and normal bowel sounds; abdomen not distended Percussion/Palpation: + abdomen tender (+TTP in RLQ with some guarding but softer than previous, +TTP LLQ but less), + guarding (In the right lower quadrant) and abdomen soft; abdomen not rigid and no hernia Musculoskeletal: Extremities: no cyanosis and no clubbing Skin: no rashes, warm and dry + erythema (Rosacea of the cheeks and nose) Neurologic: moves all extremities and awake; no focal motor deficits Psychiatric: A+Ox3, euthymic affect Results & Data Vital Signs (Past 12 Hours) Vital Signs Temp Pulse Pulse Resp BP Pulse Ox 07/21/18 19:21 37.5 C 73 19 135/79 92 07/21/18 16:00 68 07/21/18 15:26 37.5 C 80 18 146/84 H 91 07/21/18 11:12 37.6 C H 74 18 124/79 95 07/21/18 08:00 72 07/21/18 07:30 37.4 C 74 18 174/88 H 96 Laboratory Results 07/21/18 07/21/18 07/21/18 Range/Units 18:12 11:57 10:25 WBC (4.8-10.8) K/uL RBC (4.7-6.1) M/uL Hgb (14.0-18.0) g/dL Hct (42-52) % MCV (80-100) fL MCH (25-34) pg MCHC (32-36) g/dL RDW Std Deviation (36.4-46.3) fL RDW Coeff of Guy (11.5-14.5) % Plt Count (130-400) K/uL MPV (7.4-10.4) fL Immature Gran % (Auto) % Neut % (Auto) % Lymph % (Auto) % [place] % (Auto) % Eos % (Auto) % Baso % (Auto) % Immature Gran # (Auto) (0.00-0.02) K/uL Neut # (Auto) (1.4-6.5) K/uL Lymph # (Auto) (1.2-3.4) K/uL [place] # (Auto) (0.11-0.59) K/uL Eos # (Auto) (0-0.5) K/uL Baso # (Auto) (0-0.2) K/uL PT (9.0-12.0) Seconds INR (0.9-1.1) Sodium (136-145) mmol/L Potassium (3.5-5.1) mmol/L Chloride (98-107) mmol/L Carbon Dioxide (21-32) mmol/L Anion Gap (3-11) BUN (7-18) mg/dl Creatinine (0.6-1.4) mg/dl Est Cr Clr Drug Dosing ml/min Est GFR ( Amer) Est GFR (Non-Af Amer) BUN/Creatinine Ratio (10-20) Glucose (70-99) mg/dl POC Glucose 172 H 141 H (70-99) Estimat Average Glucose mg/dl Hemoglobin A1c (4.5-5.6) % Calcium (8.5-10.1) mg/dl Magnesium (1.8-2.4) mg/dl Total Bilirubin (0.2-1) mg/dl Direct Bilirubin (0-0.2) mg/dl AST (15-37) U/L ALT (12-78) U/L Alkaline Phosphatase (45-117) U/L Total Protein (6.4-8.2) gm/dl Albumin (3.4-5.0) gm/dl Urine Color Yellow Urine Appearance Turbid A (Clear) Urine pH 5.0 (4.5-7.5) Ur Specific [place] 1.024 (1.000-1.030) Urine Protein 2+ H (Negative) Urine Glucose (UA) Negative (Negative) Urine Ketones Trace H (Negative) Urine Blood 3+ H (Negative) Urine Nitrite Negative (Negative) Urine Bilirubin Negative (Negative) Urine Urobilinogen Negative (Negative) Ur Leukocyte Esterase Negative (Negative) Urine WBC (Auto) 1-5 (0-5) /hpf Urine RBC (Auto) 5-10 H (0-4) /hpf U Hyaline Cast (Auto) 5-10 H (0-5) /lpf U Epithel Cells (Auto) 10-20 H (0-5) /lpf Urine Bacteria (Auto) Negative (Negative) Urine Yeast Not Reportable 07/21/18 07/21/18 07/21/18 Range/Units 08:04 08:04 08:04 WBC (4.8-10.8) K/uL RBC (4.7-6.1) M/uL Hgb (14.0-18.0) g/dL Hct (42-52) % MCV (80-100) fL MCH (25-34) pg MCHC (32-36) g/dL RDW Std Deviation (36.4-46.3) fL RDW Coeff of Guy (11.5-14.5) % Plt Count (130-400) K/uL MPV (7.4-10.4) fL Immature Gran % (Auto) % Neut % (Auto) % Lymph % (Auto) % [place] % (Auto) % Eos % (Auto) % Baso % (Auto) % Immature Gran # (Auto) (0.00-0.02) K/uL Neut # (Auto) (1.4-6.5) K/uL Lymph # (Auto) (1.2-3.4) K/uL [place] # (Auto) (0.11-0.59) K/uL Eos # (Auto) (0-0.5) K/uL Baso # (Auto) (0-0.2) K/uL PT 11.9 (9.0-12.0) Seconds INR 1.2 H (0.9-1.1) Sodium 142 (136-145) mmol/L Potassium 5.0 (3.5-5.1) mmol/L Chloride 110 H (98-107) mmol/L Carbon Dioxide 24 (21-32) mmol/L Anion Gap 8.0 (3-11) BUN 38 H (7-18) mg/dl Creatinine 2.31 H (0.6-1.4) mg/dl Est Cr Clr Drug Dosing 38.8 ml/min Est GFR ( Amer) 33.1 Est GFR (Non-Af Amer) 28.6 BUN/Creatinine Ratio 16.5 (10-20) Glucose 161 H (70-99) mg/dl POC Glucose (70-99) Estimat Average Glucose 200 mg/dl Hemoglobin A1c 8.6 H (4.5-5.6) % Calcium 8.7 (8.5-10.1) mg/dl Magnesium 2.1 (1.8-2.4) mg/dl Total Bilirubin 0.6 (0.2-1) mg/dl Direct Bilirubin 0.3 H (0-0.2) mg/dl AST 11 L (15-37) U/L ALT 16 (12-78) U/L Alkaline Phosphatase 48 (45-117) U/L Total Protein 6.7 (6.4-8.2) gm/dl Albumin 2.9 L (3.4-5.0) gm/dl Urine Color Urine Appearance (Clear) Urine pH (4.5-7.5) Ur Specific [place] (1.000-1.030) Urine Protein (Negative) Urine Glucose (UA) (Negative) Urine Ketones (Negative) Urine Blood (Negative) Urine Nitrite (Negative) Urine Bilirubin (Negative) Urine Urobilinogen (Negative) Ur Leukocyte Esterase (Negative) Urine WBC (Auto) (0-5) /hpf Urine RBC (Auto) (0-4) /hpf U Hyaline Cast (Auto) (0-5) /lpf U Epithel Cells (Auto) (0-5) /lpf Urine Bacteria (Auto) (Negative) Urine Yeast 07/21/18 07/21/18 07/21/18 Range/Units 08:04 06:05 00:12 WBC 6.39 (4.8-10.8) K/uL RBC 5.07 (4.7-6.1) M/uL Hgb 14.8 (14.0-18.0) g/dL Hct 45.3 (42-52) % MCV 89.3 (80-100) fL MCH 29.2 (25-34) pg MCHC 32.7 (32-36) g/dL RDW Std Deviation 46.8 H (36.4-46.3) fL RDW Coeff of Guy 14.4 (11.5-14.5) % Plt Count 66 L (130-400) K/uL MPV 10.5 H (7.4-10.4) fL Immature Gran % (Auto) 0.5 % Neut % (Auto) 83.6 % Lymph % (Auto) 4.9 % [place] % (Auto) 10.5 % Eos % (Auto) 0.3 % Baso % (Auto) 0.2 % Immature Gran # (Auto) 0.03 H (0.00-0.02) K/uL Neut # (Auto) 5.35 (1.4-6.5) K/uL Lymph # (Auto) 0.31 L (1.2-3.4) K/uL [place] # (Auto) 0.67 H (0.11-0.59) K/uL Eos # (Auto) 0.02 (0-0.5) K/uL Baso # (Auto) 0.01 (0-0.2) K/uL PT (9.0-12.0) Seconds INR (0.9-1.1) Sodium (136-145) mmol/L Potassium (3.5-5.1) mmol/L Chloride (98-107) mmol/L Carbon Dioxide (21-32) mmol/L Anion Gap (3-11) BUN (7-18) mg/dl Creatinine (0.6-1.4) mg/dl Est Cr Clr Drug Dosing ml/min Est GFR ( Amer) Est GFR (Non-Af Amer) BUN/Creatinine Ratio (10-20) Glucose (70-99) mg/dl POC Glucose 146 H 168 H (70-99) Estimat Average Glucose mg/dl Hemoglobin A1c (4.5-5.6) % Calcium (8.5-10.1) mg/dl Magnesium (1.8-2.4) mg/dl Total Bilirubin (0.2-1) mg/dl Direct Bilirubin (0-0.2) mg/dl AST (15-37) U/L ALT (12-78) U/L Alkaline Phosphatase (45-117) U/L Total Protein (6.4-8.2) gm/dl Albumin (3.4-5.0) gm/dl Urine Color Urine Appearance (Clear) Urine pH (4.5-7.5) Ur Specific [place] (1.000-1.030) Urine Protein (Negative) Urine Glucose (UA) (Negative) Urine Ketones (Negative) Urine Blood (Negative) Urine Nitrite (Negative) Urine Bilirubin (Negative) Urine Urobilinogen (Negative) Ur Leukocyte Esterase (Negative) Urine WBC (Auto) (0-5) /hpf Urine RBC (Auto) (0-4) /hpf U Hyaline Cast (Auto) (0-5) /lpf U Epithel Cells (Auto) (0-5) /lpf Urine Bacteria (Auto) (Negative) Urine Yeast (1) Diverticulitis of colon with perforation Diverticulitis bleeding: without bleeding Qualified Code(s): K57.20 - Diverticulitis of large intestine with perforation and abscess without bleeding
[2018-07-21] MEDS ORDERED: ENOXAPARIN INJ 30 MG/0.3 ML SYR SQ SCH (20:30)
[2018-07-21] MEDS: PIPERACILLIN/TAZOBACTAM 4.5 GM in DEXTROSE 5% 100 ML IV SCH (20:32)
[2018-07-22] MEDS: PIPERACILLIN/TAZOBACTAM 4.5 GM in DEXTROSE 5% 100 ML IV SCH ×3 (04:25→19:45)
[2018-07-22 06:01] LABS: Hematocrit (blood only) 41.7 % (42-52); Hemoglobin 13.4 g/dL (14.0-18.0); Mean Corpuscular Hgb Conc 32.1 g/dL (32-36); Mean Corpuscular Volume 89.5 fL (80-100); RDW Coefficient of Variation 14.5 % (11.5-14.5); RDW Standard Deviation 47.2 fL (36.4-46.3); Red Blood Count 4.66 M/uL (4.7-6.1); White Blood Count 5.15 K/uL (4.8-10.8)
[2018-07-22 06:07] LABS: Mean Platelet Volume 10.2 fL (7.4-10.4); Platelet Count 71 K/uL (130-400)
[2018-07-22 06:11] LABS: INR 1.1 (0.9-1.1); Prothrombin Time 11.6 Seconds (9.0-12.0)
[2018-07-22] MEDS: SODIUM CHLORIDE 0.9% 1000ML 1,000 ML IV SCH (06:23)
[2018-07-22] MEDS: INSULIN ASPART 100 UNITS/ML 3 ML PEN SC SCH ×4 (06:24→22:02)
[2018-07-22 06:37] LABS: BUN Creatinine Ratio 14.4 (10-20); Calcium 8.2 mg/dl (8.5-10.1); Creatinine Clr Calc Pharmacy 28.1 ml/min; Est GFR (African American) 22.3; Est GFR (Non-African American) 19.3; Magnesium 2.1 mg/dl (1.8-2.4); Phosphorus 3.6 mg/dl (2.5-4.9); Potassium 4.9 mmol/L (3.5-5.1)
[2018-07-22 06:44] LABS: Basophils # (auto) 0.01 K/uL (0-0.2); Basophils % (auto) 0.2 %; Eosinophils # (auto) 0.04 K/uL (0-0.5); Eosinophils % (auto) 0.8 %; Giant Platelets 1+; Immature Granulocytes # (auto) 0.05 K/uL (0.00-0.02); Lymphocytes # (auto) 0.27 K/uL (1.2-3.4); Lymphocytes % (auto) 5.2 %; Monocytes # (auto) 0.63 K/uL (0.11-0.59); Monocytes % (auto) 12.2 %; Neutrophils # (auto) 4.15 K/uL (1.4-6.5); Neutrophils % (auto) 80.6 %
[2018-07-22] MEDS: LEVOTHYROXINE SODIUM 44 MCG in SYRINGE 0 ML IV SCH (08:41)
[2018-07-22] MEDS: INSULIN GLARGINE SOLOSTAR 100 UNITS/ML 3 ML PEN SC SCH (08:42)
[2018-07-22] MEDS: FLUTICASONE/SALMETEROL (ADVAIR) 500/50 INH 14 PUFF INH SCH ×2 (08:42→19:45)
[2018-07-22] MEDS ORDERED: D5W AND 1/2NSS 1,000 ML IV SCH (09:45)
[2018-07-22] MEDS ORDERED: INSULIN GLARGINE SOLOSTAR 100 UNITS/ML 3 ML PEN SC SCH (10:15)
--- NOTE | 2018-07-22 13:05 | Surgery Progress Note ---
Date of Service July 22, 2018 Assessment & Plan (1) Diverticulitis of colon with perforation: Mr. Johnson is a 63 yo male who presents with acute perforated diverticulitis. CT scan reveals sigmoid diverticulitis with colonic wall thickening with pericolonic stranding, trace free fluid, and adjacent pneumoperitoneum as well as a small amount of air and fluid tracking toward the ascending colon. Afebrile for last 24 hours. RLQ tenderness and guarding however no rigidity (improving on serial examinations) Discussed diverticulitis etiology with the patient and usual treatment options, including antibiotics with potential need for surgery. Discussed in the emergent or urgent setting surgery usually results in an ostomy and goal in stable patients is to manage with NPO and IV antibiotics. In the elective setting with perforated diverticulitis recommendation is for colonoscopy and discussion about potential elective colonic resection. Bacteremia- 2/2 positive blood cultures with gram negative and positive bacilli, repeat blood cultures on 07/21/18 showing no growth 2/2 to this date - Continue conservative management with IVF and IV abx - May have sips and chips/popsicles, advised to go slow, if tolerates clears tonight - Broad spectrum abx - Recommend TEDS, SCDs, and VTE chemoprophylaxis - encouraged oob to chair and ambulation - Will need outpatient colonoscopy after acute episode resolves Dr. Ca has seen and examined pt, agrees with above. See addendum for further recommendations/plan. Supervising Physician Co-Signing Physician Notes I have seen and evaluated the patient and reviewed the medical record. I agree with the documentation as provided in this note by Hetal Michelle PA-C. Subjective feeling better today pain still present but improving, pain with movement or using abdominal muscles 3 liquid bowel movements no nausea or vomiting thirsty would like something to drink has not been oob to chair or ambulating Physical Exam Constitutional: WD/WN, vitals as above + morbidly obese Respiratory: normal respiratory effort; no respiratory distress Gastrointestinal (Abdomen): Inspection/Auscultation: abdomen normal to inspection; abdomen not distended and + abnormal bowel sounds Percussion/Palpation: + abdomen tender (RLQ with voluntary guarding), + guarding (RLQ, improved) and abdomen soft; abdomen not rigid Skin: no rashes, warm and dry Erythema of the face (nose, chin, cheeks) Psychiatric: A+Ox3, euthymic affect Results & Data Vital Signs (Past 12 Hours) Vital Signs Temp Pulse Pulse Resp BP Pulse Ox 07/22/18 11:57 36.6 C 92 H 24 128/82 98 07/22/18 07:03 37.0 C 76 24 158/94 H 94 07/22/18 03:35 36.8 C 72 16 150/90 H 90 07/22/18 01:51 64 14 97 Laboratory Results 07/22/18 07/22/18 07/22/18 Range/Units 11:53 06:19 05:33 WBC (4.8-10.8) K/uL RBC (4.7-6.1) M/uL Hgb (14.0-18.0) g/dL Hct (42-52) % MCV (80-100) fL MCH (25-34) pg MCHC (32-36) g/dL RDW Std Deviation (36.4-46.3) fL RDW Coeff of Guy (11.5-14.5) % Plt Count (130-400) K/uL MPV (7.4-10.4) fL Immature Gran % (Auto) % Neut % (Auto) % Lymph % (Auto) % [place] % (Auto) % Eos % (Auto) % Baso % (Auto) % Immature Gran # (Auto) (0.00-0.02) K/uL Neut # (Auto) (1.4-6.5) K/uL Lymph # (Auto) (1.2-3.4) K/uL [place] # (Auto) (0.11-0.59) K/uL Eos # (Auto) (0-0.5) K/uL Baso # (Auto) (0-0.2) K/uL Giant Platelets PT (9.0-12.0) Seconds INR (0.9-1.1) Sodium 142 (136-145) mmol/L Potassium 4.9 (3.5-5.1) mmol/L Chloride 111 H (98-107) mmol/L Carbon Dioxide 25 (21-32) mmol/L Anion Gap 6.0 (3-11) BUN 46 H (7-18) mg/dl Creatinine 3.20 H D (0.6-1.4) mg/dl Est Cr Clr Drug Dosing 28.1 ml/min Est GFR ( Amer) 22.3 Est GFR (Non-Af Amer) 19.3 BUN/Creatinine Ratio 14.4 (10-20) Glucose 201 H (70-99) mg/dl POC Glucose 224 H 199 H (70-99) Calcium 8.2 L (8.5-10.1) mg/dl Phosphorus 3.6 (2.5-4.9) mg/dl Magnesium 2.1 (1.8-2.4) mg/dl 07/22/18 07/22/18 07/21/18 Range/Units 05:33 05:33 23:51 WBC 5.15 (4.8-10.8) K/uL RBC 4.66 L (4.7-6.1) M/uL Hgb 13.4 L (14.0-18.0) g/dL Hct 41.7 L (42-52) % MCV 89.5 (80-100) fL MCH 28.8 (25-34) pg MCHC 32.1 (32-36) g/dL RDW Std Deviation 47.2 H (36.4-46.3) fL RDW Coeff of Guy 14.5 (11.5-14.5) % Plt Count 71 L (130-400) K/uL MPV 10.2 (7.4-10.4) fL Immature Gran % (Auto) 1.0 % Neut % (Auto) 80.6 % Lymph % (Auto) 5.2 % [place] % (Auto) 12.2 % Eos % (Auto) 0.8 % Baso % (Auto) 0.2 % Immature Gran # (Auto) 0.05 H (0.00-0.02) K/uL Neut # (Auto) 4.15 (1.4-6.5) K/uL Lymph # (Auto) 0.27 L (1.2-3.4) K/uL [place] # (Auto) 0.63 H (0.11-0.59) K/uL Eos # (Auto) 0.04 (0-0.5) K/uL Baso # (Auto) 0.01 (0-0.2) K/uL Giant Platelets 1+ PT 11.6 (9.0-12.0) Seconds INR 1.1 (0.9-1.1) Sodium (136-145) mmol/L Potassium (3.5-5.1) mmol/L Chloride (98-107) mmol/L Carbon Dioxide (21-32) mmol/L Anion Gap (3-11) BUN (7-18) mg/dl Creatinine (0.6-1.4) mg/dl Est Cr Clr Drug Dosing ml/min Est GFR ( Amer) Est GFR (Non-Af Amer) BUN/Creatinine Ratio (10-20) Glucose (70-99) mg/dl POC Glucose 167 H (70-99) Calcium (8.5-10.1) mg/dl Phosphorus (2.5-4.9) mg/dl Magnesium (1.8-2.4) mg/dl 07/21/18 Range/Units 18:12 WBC (4.8-10.8) K/uL RBC (4.7-6.1) M/uL Hgb (14.0-18.0) g/dL Hct (42-52) % MCV (80-100) fL MCH (25-34) pg MCHC (32-36) g/dL RDW Std Deviation (36.4-46.3) fL RDW Coeff of Guy (11.5-14.5) % Plt Count (130-400) K/uL MPV (7.4-10.4) fL Immature Gran % (Auto) % Neut % (Auto) % Lymph % (Auto) % [place] % (Auto) % Eos % (Auto) % Baso % (Auto) % Immature Gran # (Auto) (0.00-0.02) K/uL Neut # (Auto) (1.4-6.5) K/uL Lymph # (Auto) (1.2-3.4) K/uL [place] # (Auto) (0.11-0.59) K/uL Eos # (Auto) (0-0.5) K/uL Baso # (Auto) (0-0.2) K/uL Giant Platelets PT (9.0-12.0) Seconds INR (0.9-1.1) Sodium (136-145) mmol/L Potassium (3.5-5.1) mmol/L Chloride (98-107) mmol/L Carbon Dioxide (21-32) mmol/L Anion Gap (3-11) BUN (7-18) mg/dl Creatinine (0.6-1.4) mg/dl Est Cr Clr Drug Dosing ml/min Est GFR ( Amer) Est GFR (Non-Af Amer) BUN/Creatinine Ratio (10-20) Glucose (70-99) mg/dl POC Glucose 172 H (70-99) Calcium (8.5-10.1) mg/dl Phosphorus (2.5-4.9) mg/dl Magnesium (1.8-2.4) mg/dl (1) Diverticulitis of colon with perforation Diverticulitis bleeding: without bleeding Qualified Code(s): K57.20 - Diverticulitis of large intestine with perforation and abscess without bleeding
[2018-07-22] MEDS ORDERED: Heparin IV Low Dose *NO* Bolus IV ONE (14:26)
--- NOTE | 2018-07-22 14:50 | Hospitalist Progress Note ---
Date of Service July 22, 2018 Assessment & Plan (1) Diverticulitis of colon with perforation: Patient with right-sided sigmoid diverticulitis with perforation with pneumoperitoneum evident on CT scan. Presented with diffuse tenderness of the abdomen right greater than left with guarding on the right. Was initially febrile but now resolved for the last 24 hours He has no leukocytosis, lactate is normal, no evidence of sepsis otherwise Overall improved today, moving bowels and pain is improved, serial abdominal exams are improving BCxs +for GNR in 1 bottle and GPRs in the other bottle-still no identification- suspect these may end up being either anaerobes or contaminants? -Appreciate general surgery consultation-no surgical intervention needed at this time, but could have elective colectomy in the future -will continue serial abdominal exams -Continue IV Zosyn for broad-spectrum coverage which will cover for anaerobes and gram negatives-will need at least 2 weeks of antibiotics-consider ID consultation to determine length of course and choice of antibiotic, awaiting culture results from the blood -follow repeat BCxs-no growth to date -Advance slowly to clear liquids diet for this evening -continue IV fluids but change to half-normal saline at 80 mL's per hour - follow urine output closely-not oliguric -No further imaging needed at this time as per surgery -continue IV Dilaudid for pain control -will need outpatient colonoscopy in 6 weeks after resolution (2) Atrial fibrillation: Paroxysmal atrial fibrillation and flutter-follows with cardiology Was in normal sinus rhythm throughout his stay but then converted to atrial f lutter with 2-1 block with rates in the 90s on 07/22 -When n.p.o., were holding p.o. amiodarone-now that he is taking p.o., will restart amiodarone 200 mg in the morning -Restart home metoprolol 25 mg p.o. twice daily for rate control -Start heparin drip for anticoagulation, hold off on restarting home Coumadin while still at risk for needing surgical procedure -Is supposedly on Coumadin at home, however his INR on admission was only 1.0 and I cannot find record that his INR has been checked since November 2017- patient reports he takes all of his medications, and also tells me that he has his INR checked every time his PCP does blood work at the [facility] lab. I reviewed the chart and can only find an INR from November-suspect noncompliance inadvertently with both taking Coumadin and with following INR Had extensive discussion with the patient and his girlfriend who is in the medical field was present at the time-she will ensure that he is indeed taking his Coumadin at home after discharge and that he gets his INR checked in the future -Continue to monitor on telemetry (3) Asthma: Stable, no acute issues -Continue home Advair, albuterol nebs as needed (4) Sleep apnea: Continue home CPAP 14 cm H2O (5) Hypertension: Blood pressures acceptable to elevated -Restarting home p.o. metoprolol and will give IV Lopressor as needed (6) Hypothyroidism: TSH mildly elevated recently as an outpatient was advised to increase levothyroxine 88 mcg -Holding home p.o. levothyroxine -cont IV levothyroxine 44 mcg daily in the morning until reliably taking p.o. (7) Diabetes mellitus, type 2: With severe hyperglycemia here at 479 upon admission, no evidence of acidosis other than mildly elevated beta hydroxybutyric acid. Hyperglycemia likely secondary to stress of illness plus recent dosing of methylprednisolone HgbA1C 8.6%, uncontrolled -Was given regular insulin 10 units IV x1 upon admission Glucose now much improved although increasing again today after he was on D5 half-normal saline-we will now discontinue D5 half-normal saline and do only half normal saline for hydration -Increase Lantus to 12 units once daily -cont NovoLog supplemental insulin every 6 hours with Trir-Jamwo-ebniodtsn sliding scale today -Giving IV fluids for hydration -Holding home metformin, glipizide, and Januvia (8) Gout: With acute flare of the right ankle-treated with methylprednisolone x2 doses-some pain remains today in the right lateral ankle -Hold off on further steroids at this time as could contribute to friability of the bowel -Would not treat with NSAIDs or colchicine given renal failure -Observe for worsening -Unfortunately, not much to do at this point, could try topical Voltaren gel-if very severe pain, could consider consulting orthopedics for localized steroid injection (9) CKD (chronic kidney disease) stage 3, GFR 30-59 ml/min: Baseline creatinine around 2.0, GFR just above 30. Creatinine upon admission is 2.0 and now up again to 3.20, potassium 4.9, bicarbonate 25, he is making urine and volume status is acceptable He has no evidence of urinary obstruction on recent CT imaging. -Consult nephrology-appreciate consultation -Continue hydration -Avoid nephrotoxins -Renally dose medications Follow urine output -Follow [facility] (10) Chronic diastolic CHF (congestive heart failure): Long history of such and also with previous history of systolic dysfunction secondary to tachyarrhythmia induced cardiomyopathy which is now resolved He was volume down/dehydrated at the time of admission, now improved -continue giving IV fluids as above -Continue to hold home Bumex -Continue Daily weights, I's and O's (11) Thrombocytopenia: Platelets normally hanging out around 100 K for at least the last 5 years, here at [place] of 66 K and likely secondary to acute illness-now improved up to 71 Unclear diagnosis-does he have history of ITP? There is no evidence of splenomegaly on his CT scan of the abdomen/pelvis -Follow CBC -If needed surgery, could consider platelet transfusion (12) Hyperkalemia: Potassium elevated at 5.6 on admission and improved now to 4.9 with administration of IV fluids and IV insulin. No acute changes of hyperkalemia on ECG noted He has a chronic history of hyperkalemia likely secondary to his chronic kidney disease -Follow [facility] (13) DVT prophylaxis: SCDs, SARAH hose Heparin drip Disposition-continue on PCU Full code Patient reports that if he were in a vegetative-like state requiring life support, he would not want to live that way if there was no hope for recovery He designates his older brother Bang Johnson as his healthcare spokesperson if needed Discussed his care at length with his girlfriend at the bedside today Subjective Patient feeling better today, abdominal pain is much less. He had a few small loose bowel movements today, nonbloody. No nausea. He has been tolerating sips and chips since midmorning. I discussed the case with nephrology and general surgery. On telemetry, he was in normal sinus rhythm with PACs with rates in the 70s but then converted to atrial flutter with rates in the 90s. Review of Systems Review of Systems: All systems reviewed & are unremarkable except as noted in HPI & below (Except still having right lateral ankle pain from his gout attack) Physical Exam Constitutional: WD/WN, vitals as above Eyes: PERRL, conjunctivae normal, anicteric sclerae ENMT: Ears: no hearing impairment and no external ear abnormality Nose: + external nose abnormality (Bulbous nose) Neck: trachea midline, no thyromegaly Respiratory: normal respiratory effort, lungs clear to auscultation normal respiratory effort (with NC in place) Cardiovascular: RRR, no murmur, no edema Gastrointestinal (Abdomen): Inspection/Auscultation: abdomen normal to inspection and normal bowel sounds; abdomen not distended Percussion/Palpation: + abdomen tender (+TTP in RLQ with some guarding but softer than previous, +TTP LLQ but less and soft), + guarding (In the right lower quadrant) and abdomen soft; abdomen not rigid and no hernia Musculoskeletal: Extremities: no cyanosis and no clubbing Skin: no rashes, warm and dry + erythema (Rosacea of the cheeks and nose) Neurologic: moves all extremities and awake; no focal motor deficits Psychiatric: A+Ox3, euthymic affect Results & Data Vital Signs (Past 12 Hours) Vital Signs Temp Pulse Resp BP Pulse Ox 07/22/18 11:57 36.6 C 92 H 24 128/82 98 07/22/18 07:03 37.0 C 76 24 158/94 H 94 07/22/18 03:35 36.8 C 72 16 150/90 H 90 Laboratory Results 07/22/18 07/22/18 07/22/18 Range/Units 20:41 20:40 17:13 WBC (4.8-10.8) K/uL RBC (4.7-6.1) M/uL Hgb (14.0-18.0) g/dL Hct (42-52) % MCV (80-100) fL MCH (25-34) pg MCHC (32-36) g/dL RDW Std Deviation (36.4-46.3) fL RDW Coeff of Guy (11.5-14.5) % Plt Count (130-400) K/uL MPV (7.4-10.4) fL Immature Gran % (Auto) % Neut % (Auto) % Lymph % (Auto) % [place] % (Auto) % Eos % (Auto) % Baso % (Auto) % Immature Gran # (Auto) (0.00-0.02) K/uL Neut # (Auto) (1.4-6.5) K/uL Lymph # (Auto) (1.2-3.4) K/uL [place] # (Auto) (0.11-0.59) K/uL Eos # (Auto) (0-0.5) K/uL Baso # (Auto) (0-0.2) K/uL Giant Platelets PT (9.0-12.0) Seconds INR (0.9-1.1) Sodium (136-145) mmol/L Potassium (3.5-5.1) mmol/L Chloride (98-107) mmol/L Carbon Dioxide (21-32) mmol/L Anion Gap (3-11) BUN (7-18) mg/dl Creatinine (0.6-1.4) mg/dl Est Cr Clr Drug Dosing ml/min Est GFR ( Amer) Est GFR (Non-Af Amer) BUN/Creatinine Ratio (10-20) Glucose (70-99) mg/dl POC Glucose 293 H 329 H* 234 H (70-99) Calcium (8.5-10.1) mg/dl Phosphorus (2.5-4.9) mg/dl Magnesium (1.8-2.4) mg/dl 07/22/18 07/22/18 07/22/18 Range/Units 15:12 11:53 06:19 WBC (4.8-10.8) K/uL RBC (4.7-6.1) M/uL Hgb (14.0-18.0) g/dL Hct (42-52) % MCV (80-100) fL MCH (25-34) pg MCHC (32-36) g/dL RDW Std Deviation (36.4-46.3) fL RDW Coeff of Guy (11.5-14.5) % Plt Count (130-400) K/uL MPV (7.4-10.4) fL Immature Gran % (Auto) % Neut % (Auto) % Lymph % (Auto) % [place] % (Auto) % Eos % (Auto) % Baso % (Auto) % Immature Gran # (Auto) (0.00-0.02) K/uL Neut # (Auto) (1.4-6.5) K/uL Lymph # (Auto) (1.2-3.4) K/uL [place] # (Auto) (0.11-0.59) K/uL Eos # (Auto) (0-0.5) K/uL Baso # (Auto) (0-0.2) K/uL Giant Platelets PT (9.0-12.0) Seconds INR (0.9-1.1) Sodium 141 (136-145) mmol/L Potassium 4.8 (3.5-5.1) mmol/L Chloride 111 H (98-107) mmol/L Carbon Dioxide 26 (21-32) mmol/L Anion Gap 4.0 (3-11) BUN 45 H (7-18) mg/dl Creatinine 3.13 H (0.6-1.4) mg/dl Est Cr Clr Drug Dosing 28.7 ml/min Est GFR ( Amer) 22.9 Est GFR (Non-Af Amer) 19.8 BUN/Creatinine Ratio 14.5 (10-20) Glucose 249 H (70-99) mg/dl POC Glucose 224 H 199 H (70-99) Calcium 8.2 L (8.5-10.1) mg/dl Phosphorus (2.5-4.9) mg/dl Magnesium (1.8-2.4) mg/dl 07/22/18 07/22/18 07/22/18 Range/Units 05:33 05:33 05:33 WBC 5.15 (4.8-10.8) K/uL RBC 4.66 L (4.7-6.1) M/uL Hgb 13.4 L (14.0-18.0) g/dL Hct 41.7 L (42-52) % MCV 89.5 (80-100) fL MCH 28.8 (25-34) pg MCHC 32.1 (32-36) g/dL RDW Std Deviation 47.2 H (36.4-46.3) fL RDW Coeff of Guy 14.5 (11.5-14.5) % Plt Count 71 L (130-400) K/uL MPV 10.2 (7.4-10.4) fL Immature Gran % (Auto) 1.0 % Neut % (Auto) 80.6 % Lymph % (Auto) 5.2 % [place] % (Auto) 12.2 % Eos % (Auto) 0.8 % Baso % (Auto) 0.2 % Immature Gran # (Auto) 0.05 H (0.00-0.02) K/uL Neut # (Auto) 4.15 (1.4-6.5) K/uL Lymph # (Auto) 0.27 L (1.2-3.4) K/uL [place] # (Auto) 0.63 H (0.11-0.59) K/uL Eos # (Auto) 0.04 (0-0.5) K/uL Baso # (Auto) 0.01 (0-0.2) K/uL Giant Platelets 1+ PT 11.6 (9.0-12.0) Seconds INR 1.1 (0.9-1.1) Sodium 142 (136-145) mmol/L Potassium 4.9 (3.5-5.1) mmol/L Chloride 111 H (98-107) mmol/L Carbon Dioxide 25 (21-32) mmol/L Anion Gap 6.0 (3-11) BUN 46 H (7-18) mg/dl Creatinine 3.20 H D (0.6-1.4) mg/dl Est Cr Clr Drug Dosing 28.1 ml/min Est GFR ( Amer) 22.3 Est GFR (Non-Af Amer) 19.3 BUN/Creatinine Ratio 14.4 (10-20) Glucose 201 H (70-99) mg/dl POC Glucose (70-99) Calcium 8.2 L (8.5-10.1) mg/dl Phosphorus 3.6 (2.5-4.9) mg/dl Magnesium 2.1 (1.8-2.4) mg/dl 07/21/18 Range/Units 23:51 WBC (4.8-10.8) K/uL RBC (4.7-6.1) M/uL Hgb (14.0-18.0) g/dL Hct (42-52) % MCV (80-100) fL MCH (25-34) pg MCHC (32-36) g/dL RDW Std Deviation (36.4-46.3) fL RDW Coeff of Guy (11.5-14.5) % Plt Count (130-400) K/uL MPV (7.4-10.4) fL Immature Gran % (Auto) % Neut % (Auto) % Lymph % (Auto) % [place] % (Auto) % Eos % (Auto) % Baso % (Auto) % Immature Gran # (Auto) (0.00-0.02) K/uL Neut # (Auto) (1.4-6.5) K/uL Lymph # (Auto) (1.2-3.4) K/uL [place] # (Auto) (0.11-0.59) K/uL Eos # (Auto) (0-0.5) K/uL Baso # (Auto) (0-0.2) K/uL Giant Platelets PT (9.0-12.0) Seconds INR (0.9-1.1) Sodium (136-145) mmol/L Potassium (3.5-5.1) mmol/L Chloride (98-107) mmol/L Carbon Dioxide (21-32) mmol/L Anion Gap (3-11) BUN (7-18) mg/dl Creatinine (0.6-1.4) mg/dl Est Cr Clr Drug Dosing ml/min Est GFR ( Amer) Est GFR (Non-Af Amer) BUN/Creatinine Ratio (10-20) Glucose (70-99) mg/dl POC Glucose 167 H (70-99) Calcium (8.5-10.1) mg/dl Phosphorus (2.5-4.9) mg/dl Magnesium (1.8-2.4) mg/dl (1) Diverticulitis of colon with perforation Diverticulitis bleeding: without bleeding Qualified Code(s): K57.20 - Diverticulitis of large intestine with perforation and abscess without bleeding
--- NOTE | 2018-07-22 14:56 | Nephrology Consultation ---
Date of Consultation July 22, 2018 Assessment & Plan (1) Acute kidney injury superimposed on CKD: -- Agree w/ stopping Metformin, Glipizide, Januvia and managing diabetes w/ insulin -- Patient appears mildly volume contracted. Continue hydration w/ D5 0.45NS at 80 cc/hr -- Urine microscopy is negative for coarse granular casts. Abdominal CT was negative for hydronephrosis -- Monitor UO and serial PRP (2) Diverticulitis of colon with perforation: -- IV Zosyn. Pharmacy is adjusting dose based on GFR -- Clinically improving w/ antibiotic therapy. Surgery is monitoring closely History of Present Illness Reason for Consultation: GAYATRI / CKD Attending Physician: Doris Holly MD History of Present Illness Mr. Johnson is a 63 year old white male who is seen at the request of Dr. Holly for evaluation of GAYATRI on CKD. Medical records in the EMR were reviewed today and are summarized as follows: Mr. Johnson has stage III CKD w/ baseline creatinine 2.0. He has never been evaluated by a Thoracic Medicine Specialist in the past. His medical history is significant for AODM, atrial fibrillation on Warfarin therapy, gout, hypothyroidism, asthma, dCHF, diverticulitis and AARON requiring CPAP therapy. Mr. Johnson presented to [facility] 07/20/18 w/ diffuse abdominal discomfort. Noncontrast abdominal CT revealed acute sigmoid diverticulitis with perforation. There was no bowel obstruction. There was no hydronephrosis of the kidneys reported. Surgical consultation was obtained and medical management w/ IV antibiotic therapy is currently being provided. Mr. Johnson reports that his abdominal pain is improving. Creatinine has risen to 3.2 and patient has become oliguric Allergies Allergy/AdvReac Type Severity Reaction Status Date / Time furosemide [From Lasix] AdvReac Rash Verified 07/20/18 04:19 Home Medications Home Medications Medication Instructions Recorded Confirmed Type Januvia 100 mg PO QDL 02/03/18 07/20/18 History amiodarone 200 mg PO QAM 02/03/18 07/20/18 History bumetanide 1 mg PO QPM 02/03/18 07/20/18 History fluticasone propion-salmeterol 1 inh INHALATION BID 02/03/18 07/20/18 History [Advair Diskus] magnesium oxide 800 mg PO BID 02/03/18 07/20/18 History metoprolol tartrate 25 mg PO BID 02/03/18 07/20/18 History warfarin 6 mg PO QPM 02/03/18 07/20/18 History blood sugar diagnostic strips #10 ea 07/19/18 07/20/18 Rx glipizide 10 mg tablet 10 mg PO BID #60 tab 07/19/18 07/20/18 Rx methylprednisolone 4 mg tablet 4 mg PO .COMPLEX #15 tab 07/19/18 07/20/18 Rx peg 3350-electrolytes 227.1 240 ml PO Q10M #1 ea 07/19/18 07/20/18 Rx gram-21.5 gram-6.36gram oral powder packet levothyroxine 88 mcg PO QAM 07/20/18 07/20/18 History metformin 500 mg PO BID 07/20/18 07/20/18 History Patient History Medical History CKD (chronic kidney disease) stage 3, GFR 30-59 ml/min Chronic diastolic CHF (congestive heart failure) Gout Asthma inhaler daily Atrial fibrillation follows with Dr. 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" History of strabismus surgery bilt History of surgery penile implant History of tooth extraction wisdom teeth Status post cervical spinal fusion normal ROM Family History Father Family history of diabetes mellitus Sister Family history of diabetes mellitus Brother Family history of diabetes mellitus Mother Cancer Stomach cancer Social History Preferred Language: Romansh Communication Ability: Effective Coke Still Cleaner Required: No Beliefs That Will Affect Care: None marital status: Current Living Situation: Alone current occupational status: employed current occupation: Works at [employer] Other Information That Helps Us Care for You: No Feels Safe at Home: Yes Safety Concerns: Feels Safe At This Time Smoking Status: Former smoker Tobacco Type: cigarettes and smokeless tobacco packs per day: 1 Years Smoked: 15 Do You Dip or Chew Tobacco: Yes Smoking End Date: 1980 Second Hand Exposure: Yes (father smoked) Tobacco Cessation Education Requested by Patient: No Hx Alcohol Use: Yes Alcohol type: beer Hx Substance Use: No Review of Systems Constitutional: no fever Respiratory: no dyspnea Cardiovascular: no chest pain Gastrointestinal: + abdominal pain; no vomiting and no diarrhea/loose stools Genitourinary: no dysuria, no urinary hesitancy and no hematuria Physical Exam Constitutional: + overweight Eyes: PERRL, conjunctivae normal, anicteric sclerae Neck: trachea midline, no thyromegaly Respiratory: normal respiratory effort, lungs clear to auscultation Cardiovascular: RRR, no murmur, no edema Gastrointestinal (Abdomen): Inspection/Auscultation: + hypoactive bowel sounds Percussion/Palpation: + abdomen tender (no guarding) and abdomen soft Skin: no rashes, warm and dry Results & Data Vital Signs (Past 12 Hours) Vital Signs Temp Pulse Resp BP Pulse Ox 07/22/18 11:57 36.6 C 92 H 24 128/82 98 07/22/18 07:03 37.0 C 76 24 158/94 H 94 07/22/18 03:35 36.8 C 72 16 150/90 H 90 Laboratory Tests 07/22/18 07/22/18 05:33 05:33 WBC 5.15 Hgb 13.4 L Hct 41.7 L Plt Count 71 L Neut % (Auto) 80.6 Sodium 142 Potassium 4.9 Chloride 111 H Carbon Dioxide 25 BUN 46 H Creatinine 3.20 H D Glucose 201 H Calcium 8.2 L Laboratory Tests 07/21/18 10:25 Urine Color Yellow Urine Appearance Turbid A Urine pH 5.0 Ur Specific Carpenter 1.024 Urine Protein 2+ H Urine Glucose (UA) Negative Urine Ketones Trace H Urine Blood 3+ H Urine Nitrite Negative Ur Leukocyte Esterase Negative Urine RBC (Auto) 5-10 H U Hyaline Cast (Auto) 5-[address] 07/20/18: Mild to moderate nonspecific bilateral perinephric stranding. No urolith or obstructive uropathy. Hypodense lesion of the superior pole right kidney suggests cyst, 3.0 cm. Prostatomegaly. Urinary bladder is unremarkable. No bowel obstruction. Wall thickening with pericolonic stranding is noted about the sigmoid colon within the abdominal right lower quadrant centered about an inflamed diverticula. There is a cluster of pneumoperitoneum with stranding and trace free fluid about a sigmoid diverticulum on image 340 series 3 compatible with perforation. No drainable fluid collection. Mild pneumoperitoneum extends into the upper abdomen. No pneumatosis. A tiny air and fluid-filled tract is noted extending towards the ascending colon on image 339 of series 3. Terminal ileum and appendix appear normal. (1) Diverticulitis of colon with perforation Diverticulitis bleeding: without bleeding Qualified Code(s): K57.20 - Diverticulitis of large intestine with perforation and abscess without bleeding
[2018-07-22] MEDS: Heparin Adult LOW DOSE Wt-Based Dextrose 5% 25,000 units/500 mL IV SCH (15:05)
[2018-07-22 15:53] LABS: BUN Creatinine Ratio 14.5 (10-20); Calcium 8.2 mg/dl (8.5-10.1); Creatinine Clr Calc Pharmacy 28.7 ml/min; Est GFR (African American) 22.9; Est GFR (Non-African American) 19.8; Potassium 4.8 mmol/L (3.5-5.1)
[2018-07-22] MEDS ORDERED: Nursing to Pharmacy Communication ONE (17:01)
[2018-07-22] MEDS: METOPROLOL TARTRATE 50 MG TAB PO SCH (22:43)
[2018-07-22] MEDS: SODIUM CHLORIDE 0.45 % 1,000 ML IV SCH (22:44)
[2018-07-22 23:13] LABS: Partial Thromboplastin Ratio 1.1
[2018-07-22] MEDS ORDERED: HEPARIN IV BOLUS 4,500 UNITS in SYRINGE 0 ML IV ONE (23:45)
[2018-07-23] MEDS: PIPERACILLIN/TAZOBACTAM 4.5 GM in DEXTROSE 5% 100 ML IV SCH ×3 (04:00→20:47)
[2018-07-23 06:26] LABS: Hematocrit (blood only) 40.7 % (42-52); Hemoglobin 13.5 g/dL (14.0-18.0); Mean Corpuscular Hgb Conc 33.2 g/dL (32-36); RDW Coefficient of Variation 14.3 % (11.5-14.5); RDW Standard Deviation 45.5 fL (36.4-46.3); Red Blood Count 4.68 M/uL (4.7-6.1); White Blood Count 5.54 K/uL (4.8-10.8)
[2018-07-23 06:40] LABS: Mean Platelet Volume 11.2 fL (7.4-10.4); Platelet Count 92 K/uL (130-400)
[2018-07-23 06:47] LABS: Partial Thromboplastin Ratio 1.2; Partial Thromboplastin Time 32.8 Seconds (21.0-31.0)
[2018-07-23 06:55] LABS: BUN Creatinine Ratio 13.3 (10-20); Creatinine Clr Calc Pharmacy 31.2 ml/min; Est GFR (African American) 25.3; Est GFR (Non-African American) 21.8; Potassium 4.5 mmol/L (3.5-5.1)
[2018-07-23 06:57] LABS: Phosphorus 2.4 mg/dl (2.5-4.9)
[2018-07-23 07:01] LABS: Basophils # (auto) 0.02 K/uL (0-0.2); Basophils % (auto) 0.4 %; Echinocytes 1+; Eosinophils # (auto) 0.07 K/uL (0-0.5); Eosinophils % (auto) 1.3 %; Immature Granulocytes # (auto) 0.07 K/uL (0.00-0.02); Immature Granulocytes % (auto) 1.3 %; Lymphocytes # (auto) 0.35 K/uL (1.2-3.4); Lymphocytes % (auto) 6.3 %; Monocytes # (auto) 0.62 K/uL (0.11-0.59); Monocytes % (auto) 11.2 %; Neutrophils # (auto) 4.41 K/uL (1.4-6.5); Neutrophils % (auto) 79.5 %
[2018-07-23] MEDS ORDERED: HEPARIN IV BOLUS 4,500 UNITS in SYRINGE 0 ML IV ONE ×3 (07:45→23:00)
[2018-07-23] MEDS: METOPROLOL TARTRATE 50 MG TAB PO SCH ×2 (08:48→20:52)
[2018-07-23] MEDS: AMIODARONE 200 MG TAB PO SCH (08:48)
[2018-07-23] MEDS: FLUTICASONE/SALMETEROL (ADVAIR) 500/50 INH 14 PUFF INH SCH ×2 (08:48→20:52)
[2018-07-23] MEDS: INSULIN GLARGINE SOLOSTAR 100 UNITS/ML 3 ML PEN SC SCH (08:49)
[2018-07-23] MEDS: INSULIN ASPART 100 UNITS/ML 3 ML PEN SC SCH ×4 (08:51→20:54)
[2018-07-23] MEDS: LEVOTHYROXINE SODIUM 44 MCG in SYRINGE 0 ML IV SCH (08:53)
--- NOTE | 2018-07-23 10:23 | Nephrology Progress Note ---
Date of Service July 23, 2018 Assessment & Plan (1) Acute kidney injury superimposed on CKD: -- Continue to hold Metformin, Glipizide, and Januvia -- Continue hydration w/ D5 0.45NS at 80 cc/hr -- Creatinine slightly improved -- Urine microscopy is negative for coarse granular casts. Abdominal CT was negative for hydronephrosis -- Monitor UO and serial PRP (2) Diverticulitis of colon with perforation: -- IV Zosyn. Pharmacy is adjusting dose based on GFR -- Clinically improving w/ antibiotic therapy. Surgery is monitoring closely Subjective No acute events overnight. Resting comfortably in bed this morning. Mild abdominal discomfort. No fevers or chills. Review of Systems Review of Systems: All systems reviewed & are unremarkable except as noted in HPI & below Physical Exam Constitutional: + obese; no acute distress Eyes: PERRL, conjunctivae normal, anicteric sclerae Neck: trachea midline, no thyromegaly Respiratory: normal respiratory effort, lungs clear to auscultation Cardiovascular: RRR, no murmur, no edema Gastrointestinal (Abdomen): Inspection/Auscultation: + hypoactive bowel sounds Percussion/Palpation: + abdomen tender (no guarding) and abdomen soft Musculoskeletal: Extremities: no cyanosis and no clubbing Skin: no rashes, warm and dry Neurologic: Motor/Sensory: no tremor and no asterixis Results & Data Vital Signs (Past 12 Hours) Vital Signs Temp Pulse Pulse Resp BP Pulse Ox 07/23/18 07:55 36.6 C 91 H 19 106/68 91 07/23/18 03:53 37.0 C 92 H 18 135/81 91 07/23/18 00:00 36.8 C 92 H 18 159/77 H 96 Laboratory Results Laboratory Results - last 24 hr 07/22/18 07/22/18 07/22/18 11:53 15:12 17:13 WBC RBC Hgb Hct MCV MCH MCHC RDW Std Deviation RDW Coeff of Guy Plt Count MPV Immature Gran % (Auto) Neut % (Auto) Lymph % (Auto) [place] % (Auto) Eos % (Auto) Baso % (Auto) Immature Gran # (Auto) Neut # (Auto) Lymph # (Auto) [place] # (Auto) Eos # (Auto) Baso # (Auto) Echinocytes APTT PTT Ratio Sodium 141 Potassium 4.8 Chloride 111 H Carbon Dioxide 26 Anion Gap 4.0 BUN 45 H Creatinine 3.13 H Est Cr Clr Drug Dosing 28.7 Est GFR ( Amer) 22.9 Est GFR (Non-Af Amer) 19.8 BUN/Creatinine Ratio 14.5 Glucose 249 H POC Glucose 224 H 234 H Calcium 8.2 L Phosphorus Magnesium 07/22/18 07/22/18 07/22/18 20:40 20:41 22:50 WBC RBC Hgb Hct MCV MCH MCHC RDW Std Deviation RDW Coeff of Guy Plt Count MPV Immature Gran % (Auto) Neut % (Auto) Lymph % (Auto) [place] % (Auto) Eos % (Auto) Baso % (Auto) Immature Gran # (Auto) Neut # (Auto) Lymph # (Auto) [place] # (Auto) Eos # (Auto) Baso # (Auto) Echinocytes APTT 30.0 PTT Ratio 1.1 Sodium Potassium Chloride Carbon Dioxide Anion Gap BUN Creatinine Est Cr Clr Drug Dosing Est GFR ( Amer) Est GFR (Non-Af Amer) BUN/Creatinine Ratio Glucose POC Glucose 329 H* 293 H Calcium Phosphorus Magnesium 07/23/18 07/23/18 07/23/18 05:48 05:48 05:48 WBC 5.54 RBC 4.68 L Hgb 13.5 L Hct 40.7 L MCV 87.0 MCH 28.8 MCHC 33.2 RDW Std Deviation 45.5 RDW Coeff of Guy 14.3 Plt Count 92 L MPV 11.2 H Immature Gran % (Auto) 1.3 Neut % (Auto) 79.5 Lymph % (Auto) 6.3 [place] % (Auto) 11.2 Eos % (Auto) 1.3 Baso % (Auto) 0.4 Immature Gran # (Auto) 0.07 H Neut # (Auto) 4.41 Lymph # (Auto) 0.35 L [place] # (Auto) 0.62 H Eos # (Auto) 0.07 Baso # (Auto) 0.02 Echinocytes 1+ APTT 32.8 H PTT Ratio 1.2 Sodium 137 Potassium 4.5 Chloride 108 H Carbon Dioxide 23 Anion Gap 6.0 BUN 38 H Creatinine 2.89 H Est Cr Clr Drug Dosing 31.2 Est GFR ( Amer) 25.3 Est GFR (Non-Af Amer) 21.8 BUN/Creatinine Ratio 13.3 Glucose 279 H POC Glucose Calcium 8.0 L Phosphorus 2.4 L D Magnesium 2.0 07/23/18 07:22 WBC RBC Hgb Hct MCV MCH MCHC RDW Std Deviation RDW Coeff of Guy Plt Count MPV Immature Gran % (Auto) Neut % (Auto) Lymph % (Auto) [place] % (Auto) Eos % (Auto) Baso % (Auto) Immature Gran # (Auto) Neut # (Auto) Lymph # (Auto) [place] # (Auto) Eos # (Auto) Baso # (Auto) Echinocytes APTT PTT Ratio Sodium Potassium Chloride Carbon Dioxide Anion Gap BUN Creatinine Est Cr Clr Drug Dosing Est GFR ( Amer) Est GFR (Non-Af Amer) BUN/Creatinine Ratio Glucose POC Glucose 254 H Calcium Phosphorus Magnesium (1) Diverticulitis of colon with perforation Diverticulitis bleeding: without bleeding Qualified Code(s): K57.20 - Diverticulitis of large intestine with perforation and abscess without bleeding
[2018-07-23] MEDS ORDERED: BUMETANIDE 1 MG TAB PO ONE (11:00)
--- NOTE | 2018-07-23 11:07 | Hospitalist Progress Note ---
Date of Service July 23, 2018 Assessment & Plan (1) Diverticulitis of colon with perforation: Patient with right-sided sigmoid diverticulitis with perforation with pneumoperitoneum evident on CT scan. Presented with diffuse tenderness of the abdomen right greater than left with guarding on the right. Was initially febrile but now resolved for the last 48 hours He has no leukocytosis (WBC5k), lactate is normal, no evidence of sepsis otherwise much improved, minimal pain in RLQ, abdomen soft had three BM since admission continue on Zosyn IV tolerating clear liquid diet, advance to low fiber and see how he tolerates initial blood cultures with anaerobic growth, one had gram positive bacilli and the other with gram negative bacilli repeat blood cultures show no growth Zosyn will be sufficient for now and anticipate Augmentin sufficient at time of discharge -Appreciate general surgery consultation-no surgical intervention needed at this time, but could have elective colectomy in the future -will need outpatient colonoscopy in 6 weeks after resolution transfer patient to medical/surgical floor today (2) Atrial fibrillation: Paroxysmal atrial fibrillation and flutter-follows with cardiology Was in normal sinus rhythm throughout his stay but then converted to atrial flutter with 2-1 block with rates in the 90s on 07/22 -When n.p.o., were holding p.o. amiodarone- now the Amiodarone is resumed -continue metoprolol 25 mg p.o. twice daily for rate control -Start heparin drip for anticoagulation, hold off on restarting home Coumadin for now, likely okay to resume in next 1-2 days transfer to medical floor (3) Asthma: Stable, no acute issues -Continue home Advair, albuterol nebs as needed (4) Sleep apnea: Continue home CPAP 14 cm H2O (5) Hypertension: Blood pressures acceptable to elevated -Restarting home p.o. metoprolol and will give IV Lopressor as needed (6) Hypothyroidism: TSH mildly elevated recently as an outpatient was advised to increase levothyroxine 88 mcg -Holding home p.o. levothyroxine -cont IV levothyroxine 44 mcg daily in the morning until reliably taking p.o. (7) Diabetes mellitus, type 2: With severe hyperglycemia here at 479 upon admission, no evidence of acidosis other than mildly elevated beta hydroxybutyric acid. Hyperglycemia likely secondary to stress of illness plus recent dosing of methylprednisolone HgbA1C 8.6%, uncontrolled -Was given regular insulin 10 units IV x1 upon admission Glucose now much improved although increasing again today after he was on D5 half-normal saline-we will now discontinue D5 half-normal saline and do only half normal saline for hydration -Increase Lantus to 12 units once daily -cont NovoLog supplemental insulin every 6 hours with [id number] sliding scale today -Giving IV fluids for hydration -Holding home metformin, glipizide, and Januvia (8) Gout: With acute flare of the right ankle-treated with methylprednisolone x2 doses-some pain remains today in the right lateral ankle -Hold off on further steroids at this time as could contribute to friability of the bowel -Would not treat with NSAIDs or colchicine given renal failure -Observe for worsening -Unfortunately, not much to do at this point, could try topical Voltaren gel-if very severe pain, could consider consulting orthopedics for localized steroid injection (9) Acute kidney injury superimposed on CKD: Cr ne to 3.2, trending down to 2.8 today with some volume overload, positive 8 liters for admission will give Bumex 1mg PO x 1 today and look for response if he makes a lot of urine then could resume Bumex 1mg PO daily (10) CKD (chronic kidney disease) stage 3, GFR 30-59 ml/min: Baseline creatinine around 2.0, GFR just above 30. Creatinine upon admission is 2.0 and then up to 3.20 He has no evidence of urinary obstruction on recent CT imaging. -Consult nephrology-appreciate consultation -Avoid nephrotoxins (11) Chronic diastolic CHF (congestive heart failure): Long history of such and also with previous history of systolic dysfunction secondary to tachyarrhythmia induced cardiomyopathy which is now resolved He was volume down/dehydrated at the time of admission, now improved stop IV fluids give Bumex 1mg PO x 1 and look for response -Continue Daily weights, I's and O's (12) Thrombocytopenia: Platelets normally hanging out around 100 K for at least the last 5 years, here at [place] of 66 K and likely secondary to acute illness-now improved up to 92 -Follow CBC -If needed surgery, could consider platelet transfusion (13) Hyperkalemia: resolved with improvement of renal function adding back Bumex will help even further (14) Hypoxia: requiring 4-6 liters at times, he is laying flat most of the time could be a degree of volume overload, add back Bumex for one dose to see if diuresis helps breathing he uses oxygen at home but only at night (15) DVT prophylaxis: SCDs, SARAH hose Heparin drip Disposition-transfer to medical Full code Patient reports that if he were in a vegetative-like state requiring life support, he would not want to live that way if there was no hope for recovery He designates his older brother Bang Johnson as his healthcare spokesperson if needed Subjective patient feeling great today, minimal pain, tolerating clear liquid diet had a large BM that was formed and then two smaller, loose BM no nausea or vomiting breathing comfortably laying flat, says he uses oxygen at home when sleeping reviewed labs, Cr improved slightly to 2.89, reviewed I/O and he is 8000cc positive WBC is 5k, Hb is 13.5, K is 4.5 Review of Systems Review of Systems: All systems reviewed & are unremarkable except as noted in HPI & below Constitutional: + weakness; no fever, no chills, no sweats and no fatigue Respiratory: no cough, no dyspnea and no dyspnea on exertion Cardiovascular: no chest pain, no dyspnea, no dyspnea on exertion, no orthopnea and no edema Gastrointestinal: + abdominal pain (minimal in the RLQ) and + diarrhea/loose stools (two small loose BM after normal solid BM); no nausea, no vomiting and no constipation Physical Exam Constitutional: WD/WN, vitals as above + obese; no acute distress Eyes: PERRL, conjunctivae normal, anicteric sclerae ENMT: external ear and nose normal, oropharynx normal Neck: trachea midline, no thyromegaly Respiratory: normal respiratory effort, lungs clear to auscultation Cardiovascular: Rate/Rhythm: regular rate and + irregularly irregular Heart Sounds: normal S1 and normal S2; no murmur Vessels: no JVD Extremities: normal capillary refill; no edema Gastrointestinal (Abdomen): Inspection/Auscultation: abdomen normal to inspection and normal bowel sounds Percussion/Palpation: + abdomen tender (RLQ, minimal pain), abdomen soft and normal to percussion; no guarding, abdomen not rigid and no hernia Musculoskeletal: no cyanosis or clubbing, extremities motor strength 5/5 Skin: no rashes, warm and dry Neurologic: patellar DTR's 2+ bilat, sensation intact and PERRL, EOMI, accommodation nl, no face palsy, no dysarthria Psychiatric: A+Ox3, euthymic affect Lymphatic: no cervical or axillary lymphadenopathy Results & Data Vital Signs (Past 12 Hours) Vital Signs Temp Pulse Pulse Resp BP Pulse Ox 07/23/18 07:55 36.6 C 91 H 19 106/68 91 07/23/18 03:53 37.0 C 92 H 18 135/81 91 07/23/18 00:00 36.8 C 92 H 18 159/77 H 96 Laboratory Results Laboratory Results - last 24 hr 07/22/18 07/22/18 07/22/18 11:53 15:12 17:13 WBC RBC Hgb Hct MCV MCH MCHC RDW Std Deviation RDW Coeff of Guy Plt Count MPV Immature Gran % (Auto) Neut % (Auto) Lymph % (Auto) [place] % (Auto) Eos % (Auto) Baso % (Auto) Immature Gran # (Auto) Neut # (Auto) Lymph # (Auto) [place] # (Auto) Eos # (Auto) Baso # (Auto) Echinocytes APTT PTT Ratio Sodium 141 Potassium 4.8 Chloride 111 H Carbon Dioxide 26 Anion Gap 4.0 BUN 45 H Creatinine 3.13 H Est Cr Clr Drug Dosing 28.7 Est GFR ( Amer) 22.9 Est GFR (Non-Af Amer) 19.8 BUN/Creatinine Ratio 14.5 Glucose 249 H POC Glucose 224 H 234 H Calcium 8.2 L Phosphorus Magnesium 07/22/18 07/22/18 07/22/18 20:40 20:41 22:50 WBC RBC Hgb Hct MCV MCH MCHC RDW Std Deviation RDW Coeff of Guy Plt Count MPV Immature Gran % (Auto) Neut % (Auto) Lymph % (Auto) [place] % (Auto) Eos % (Auto) Baso % (Auto) Immature Gran # (Auto) Neut # (Auto) Lymph # (Auto) [place] # (Auto) Eos # (Auto) Baso # (Auto) Echinocytes APTT 30.0 PTT Ratio 1.1 Sodium Potassium Chloride Carbon Dioxide Anion Gap BUN Creatinine Est Cr Clr Drug Dosing Est GFR ( Amer) Est GFR (Non-Af Amer) BUN/Creatinine Ratio Glucose POC Glucose 329 H* 293 H Calcium Phosphorus Magnesium 07/23/18 07/23/18 07/23/18 05:48 05:48 05:48 WBC 5.54 RBC 4.68 L Hgb 13.5 L Hct 40.7 L MCV 87.0 MCH 28.8 MCHC 33.2 RDW Std Deviation 45.5 RDW Coeff of Guy 14.3 Plt Count 92 L MPV 11.2 H Immature Gran % (Auto) 1.3 Neut % (Auto) 79.5 Lymph % (Auto) 6.3 [place] % (Auto) 11.2 Eos % (Auto) 1.3 Baso % (Auto) 0.4 Immature Gran # (Auto) 0.07 H Neut # (Auto) 4.41 Lymph # (Auto) 0.35 L [place] # (Auto) 0.62 H Eos # (Auto) 0.07 Baso # (Auto) 0.02 Echinocytes 1+ APTT 32.8 H PTT Ratio 1.2 Sodium 137 Potassium 4.5 Chloride 108 H Carbon Dioxide 23 Anion Gap 6.0 BUN 38 H Creatinine 2.89 H Est Cr Clr Drug Dosing 31.2 Est GFR ( Amer) 25.3 Est GFR (Non-Af Amer) 21.8 BUN/Creatinine Ratio 13.3 Glucose 279 H POC Glucose Calcium 8.0 L Phosphorus 2.4 L D Magnesium 2.0 07/23/18 07:22 WBC RBC Hgb Hct MCV MCH MCHC RDW Std Deviation RDW Coeff of Guy Plt Count MPV Immature Gran % (Auto) Neut % (Auto) Lymph % (Auto) [place] % (Auto) Eos % (Auto) Baso % (Auto) Immature Gran # (Auto) Neut # (Auto) Lymph # (Auto) [place] # (Auto) Eos # (Auto) Baso # (Auto) Echinocytes APTT PTT Ratio Sodium Potassium Chloride Carbon Dioxide Anion Gap BUN Creatinine Est Cr Clr Drug Dosing Est GFR ( Amer) Est GFR (Non-Af Amer) BUN/Creatinine Ratio Glucose POC Glucose 254 H Calcium Phosphorus Magnesium Medications Administered Current Inpatient Medications Albuterol (Duoneb) 3 ml NEB QIDR PRN PRN Reason: shortness of breath Stop: 08/19/18 09:45 Last Admin: 07/21/18 19:34 Dose: 3 ml Documented by: [facility] ([facility]) [facility] [place]: 08/22/18 08:59 Last Admin: 07/23/18 08:48 Dose: 200 mg Documented by: Bumetanide (Bumex) 1 mg PO NOW ONE Stop: 07/23/18 11:01 Dextrose (Dextrose 50%) 25 - 50 ml IV UD PRN; Protocol PRN Reason: Hypoglycemia Protocol Stop: 08/19/18 09:45 Glucagon (Glucagen) 1 mg SQ UD PRN; Protocol PRN Reason: Hypoglycemia Protocol Stop: 08/19/18 09:45 Glucose (Glucose 40%) 15 - 30 gm PO UD PRN; Protocol PRN Reason: Hypoglycemia Protocol Stop: 08/19/18 09:45 Glucose (Dex4 Glucose) 4 - 8 tabs PO UD PRN; Protocol PRN Reason: Hypoglycemia Protocol Stop: 08/19/18 09:45 Hydromorphone HCl (Dilaudid) 1 mg IV Q3H PRN PRN Reason: Pain Stop: 08/03/18 09:45 Levothyroxine Sodium 44 mcg/ (Syringe) 2.2 mls @ 2 mls/min IV DAILY@0900 [facility] Stop: 08/20/18 08:59 Last Admin: 07/23/18 08:53 Dose: 2 mls/min Documented by: Piperacillin Sod/Tazobactam (Sod 4.5 gm/ Dextrose) 120 mls @ 30 mls/hr IV Q8H [facility]; Protocol Stop: 07/29/18 23:59 Last Infusion: 07/23/18 08:47 Dose: Infused Documented by: Heparin Sodium/Dextrose (Heparin Sodium/Dextrose) 25,000 units in 500 mls @ 26 mls/hr IV .[id number] [facility]; Protocol Stop: 08/21/18 14:59 Last Titration: 07/23/18 07:18 Dose: 1,300 units/hr, 26 mls/hr Documented by: Sodium Chloride (1/2 Nss) 1,000 mls @ 80 mls/hr IV .[id number] [facility] Stop: 08/21/18 22:59 Last Admin: 07/22/18 22:44 Dose: 80 mls/hr Documented by: Insulin Aspart (Novolog Flexpen) 0 units SC ACHS [facility] Stop: 08/19/18 11:59 Last Admin: 07/23/18 08:51 Dose: 10 units Documented by: Insulin Glargine (Lantus Solostar Pen) 12 units SC QAM [facility] Stop: 08/22/18 08:59 Last Admin: 07/23/18 08:49 Dose: 12 units Documented by: Metoprolol Tartrate (Lopressor) 5 mg IV Q6 PRN PRN Reason: HR>120 or SBP>140 or DBP>90 Stop: 08/19/18 11:59 Metoprolol Tartrate (Lopressor) 25 mg PO BID [facility] Stop: 08/21/18 21:59 Last Admin: 07/23/18 08:48 Dose: 25 mg Documented by: Miscellaneous (Carbohydrates For Hypoglycemia) 15 - 30 gm PO UD PRN PRN Reason: Hypoglycemia Treatment Stop: 08/19/18 09:45 Miscellaneous Information (Consult) 1 ea N/A UD PRN PRN Reason: Consult Stop: 08/19/18 09:45 Ondansetron HCl (Zofran) 4 mg IV Q6H PRN PRN Reason: Nausea Stop: 08/19/18 09:45 Fluticasone/Salmeterol (Advair Diskus 500/50) 1 puffs INH BID [facility] Stop: 08/19/18 09:45 Last Admin: 07/23/18 08:48 Dose: 1 puffs Documented by: (1) Diverticulitis of colon with perforation Diverticulitis bleeding: without bleeding Qualified Code(s): K57.20 - Diverticulitis of large intestine with perforation and abscess without bleeding
[2018-07-23] MEDS ORDERED: Nursing to Pharmacy Communication ONE (11:47)
[2018-07-23] MEDS: SODIUM CHLORIDE 0.45 % 1,000 ML IV SCH (12:52)
--- NOTE | 2018-07-23 12:57 | Surgery Progress Note ---
Date of Service July 23, 2018 Assessment & Plan (1) Diverticulitis of colon with perforation: Acute diverticulitis with microperforation Responding to conservative measures No surgical intervention required Continue with antibiotics Tolerating diet Present on Admission?: Yes Subjective Feels well today Much less pain Had bowel movement yesterday and today that was loose No hematochezia Denies nausea and vomiting Physical Exam Gastrointestinal (Abdomen): Inspection/Auscultation: normal bowel sounds; abdomen not distended Percussion/Palpation: + abdomen tender (Lower midline only and mild) and abdomen soft Results & Data Vital Signs (Past 12 Hours) Vital Signs Temp Pulse Resp BP Pulse Ox 07/23/18 11:52 36.8 C 70 18 111/66 92 07/23/18 07:55 36.6 C 91 H 19 106/68 91 07/23/18 03:53 37.0 C 92 H 18 135/81 91 Laboratory Results 07/23/18 07/23/18 07/23/18 Range/Units 11:31 11:30 07:22 WBC (4.8-10.8) K/uL RBC (4.7-6.1) M/uL Hgb (14.0-18.0) g/dL Hct (42-52) % MCV (80-100) fL MCH (25-34) pg MCHC (32-36) g/dL RDW Std Deviation (36.4-46.3) fL RDW Coeff of Guy (11.5-14.5) % Plt Count (130-400) K/uL MPV (7.4-10.4) fL Immature Gran % (Auto) % Neut % (Auto) % Lymph % (Auto) % [place] % (Auto) % Eos % (Auto) % Baso % (Auto) % Immature Gran # (Auto) (0.00-0.02) K/uL Neut # (Auto) (1.4-6.5) K/uL Lymph # (Auto) (1.2-3.4) K/uL [place] # (Auto) (0.11-0.59) K/uL Eos # (Auto) (0-0.5) K/uL Baso # (Auto) (0-0.2) K/uL Echinocytes APTT (21.0-31.0) Seconds PTT Ratio Sodium (136-145) mmol/L Potassium (3.5-5.1) mmol/L Chloride (98-107) mmol/L Carbon Dioxide (21-32) mmol/L Anion Gap (3-11) BUN (7-18) mg/dl Creatinine (0.6-1.4) mg/dl Est Cr Clr Drug Dosing ml/min Est GFR ( Amer) Est GFR (Non-Af Amer) BUN/Creatinine Ratio (10-20) Glucose (70-99) mg/dl POC Glucose 322 H* 318 H* 254 H (70-99) Calcium (8.5-10.1) mg/dl Phosphorus (2.5-4.9) mg/dl Magnesium (1.8-2.4) mg/dl 07/23/18 07/23/18 07/23/18 Range/Units 05:48 05:48 05:48 WBC 5.54 (4.8-10.8) K/uL RBC 4.68 L (4.7-6.1) M/uL Hgb 13.5 L (14.0-18.0) g/dL Hct 40.7 L (42-52) % MCV 87.0 (80-100) fL MCH 28.8 (25-34) pg MCHC 33.2 (32-36) g/dL RDW Std Deviation 45.5 (36.4-46.3) fL RDW Coeff of Guy 14.3 (11.5-14.5) % Plt Count 92 L (130-400) K/uL MPV 11.2 H (7.4-10.4) fL Immature Gran % (Auto) 1.3 % Neut % (Auto) 79.5 % Lymph % (Auto) 6.3 % [place] % (Auto) 11.2 % Eos % (Auto) 1.3 % Baso % (Auto) 0.4 % Immature Gran # (Auto) 0.07 H (0.00-0.02) K/uL Neut # (Auto) 4.41 (1.4-6.5) K/uL Lymph # (Auto) 0.35 L (1.2-3.4) K/uL [place] # (Auto) 0.62 H (0.11-0.59) K/uL Eos # (Auto) 0.07 (0-0.5) K/uL Baso # (Auto) 0.02 (0-0.2) K/uL Echinocytes 1+ APTT 32.8 H (21.0-31.0) Seconds PTT Ratio 1.2 Sodium 137 (136-145) mmol/L Potassium 4.5 (3.5-5.1) mmol/L Chloride 108 H (98-107) mmol/L Carbon Dioxide 23 (21-32) mmol/L Anion Gap 6.0 (3-11) BUN 38 H (7-18) mg/dl Creatinine 2.89 H (0.6-1.4) mg/dl Est Cr Clr Drug Dosing 31.2 ml/min Est GFR ( Amer) 25.3 Est GFR (Non-Af Amer) 21.8 BUN/Creatinine Ratio 13.3 (10-20) Glucose 279 H (70-99) mg/dl POC Glucose (70-99) Calcium 8.0 L (8.5-10.1) mg/dl Phosphorus 2.4 L D (2.5-4.9) mg/dl Magnesium 2.0 (1.8-2.4) mg/dl 07/22/18 07/22/18 07/22/18 Range/Units 22:50 20:41 20:40 WBC (4.8-10.8) K/uL RBC (4.7-6.1) M/uL Hgb (14.0-18.0) g/dL Hct (42-52) % MCV (80-100) fL MCH (25-34) pg MCHC (32-36) g/dL RDW Std Deviation (36.4-46.3) fL RDW Coeff of Guy (11.5-14.5) % Plt Count (130-400) K/uL MPV (7.4-10.4) fL Immature Gran % (Auto) % Neut % (Auto) % Lymph % (Auto) % [place] % (Auto) % Eos % (Auto) % Baso % (Auto) % Immature Gran # (Auto) (0.00-0.02) K/uL Neut # (Auto) (1.4-6.5) K/uL Lymph # (Auto) (1.2-3.4) K/uL [place] # (Auto) (0.11-0.59) K/uL Eos # (Auto) (0-0.5) K/uL Baso # (Auto) (0-0.2) K/uL Echinocytes APTT 30.0 (21.0-31.0) Seconds PTT Ratio 1.1 Sodium (136-145) mmol/L Potassium (3.5-5.1) mmol/L Chloride (98-107) mmol/L Carbon Dioxide (21-32) mmol/L Anion Gap (3-11) BUN (7-18) mg/dl Creatinine (0.6-1.4) mg/dl Est Cr Clr Drug Dosing ml/min Est GFR ( Amer) Est GFR (Non-Af Amer) BUN/Creatinine Ratio (10-20) Glucose (70-99) mg/dl POC Glucose 293 H 329 H* (70-99) Calcium (8.5-10.1) mg/dl Phosphorus (2.5-4.9) mg/dl Magnesium (1.8-2.4) mg/dl 07/22/18 07/22/18 Range/Units 17:13 15:12 WBC (4.8-10.8) K/uL RBC (4.7-6.1) M/uL Hgb (14.0-18.0) g/dL Hct (42-52) % MCV (80-100) fL MCH (25-34) pg MCHC (32-36) g/dL RDW Std Deviation (36.4-46.3) fL RDW Coeff of Guy (11.5-14.5) % Plt Count (130-400) K/uL MPV (7.4-10.4) fL Immature Gran % (Auto) % Neut % (Auto) % Lymph % (Auto) % [place] % (Auto) % Eos % (Auto) % Baso % (Auto) % Immature Gran # (Auto) (0.00-0.02) K/uL Neut # (Auto) (1.4-6.5) K/uL Lymph # (Auto) (1.2-3.4) K/uL [place] # (Auto) (0.11-0.59) K/uL Eos # (Auto) (0-0.5) K/uL Baso # (Auto) (0-0.2) K/uL Echinocytes APTT (21.0-31.0) Seconds PTT Ratio Sodium 141 (136-145) mmol/L Potassium 4.8 (3.5-5.1) mmol/L Chloride 111 H (98-107) mmol/L Carbon Dioxide 26 (21-32) mmol/L Anion Gap 4.0 (3-11) BUN 45 H (7-18) mg/dl Creatinine 3.13 H (0.6-1.4) mg/dl Est Cr Clr Drug Dosing 28.7 ml/min Est GFR ( Amer) 22.9 Est GFR (Non-Af Amer) 19.8 BUN/Creatinine Ratio 14.5 (10-20) Glucose 249 H (70-99) mg/dl POC Glucose 234 H (70-99) Calcium 8.2 L (8.5-10.1) mg/dl Phosphorus (2.5-4.9) mg/dl Magnesium (1.8-2.4) mg/dl (1) Diverticulitis of colon with perforation Diverticulitis bleeding: without bleeding Qualified Code(s): K57.20 - Diverticulitis of large intestine with perforation and abscess without bleeding
[2018-07-23] MEDS: Heparin Adult LOW DOSE Wt-Based Dextrose 5% 25,000 units/500 mL IV SCH (13:00)
[2018-07-23 14:39] LABS: Partial Thromboplastin Ratio 1.3; Partial Thromboplastin Time 34.2 Seconds (21.0-31.0)
[2018-07-23 21:59] LABS: Partial Thromboplastin Ratio 1.2; Partial Thromboplastin Time 33.6 Seconds (21.0-31.0)
[2018-07-24] MEDS: PIPERACILLIN/TAZOBACTAM 4.5 GM in DEXTROSE 5% 100 ML IV SCH ×3 (03:29→20:52)
[2018-07-24] MEDS: Heparin Adult LOW DOSE Wt-Based Dextrose 5% 25,000 units/500 mL IV SCH (05:45)
[2018-07-24] MEDS: LEVOTHYROXINE SODIUM 88 MCG TABLET PO SCH (05:45)
[2018-07-24 06:05] LABS: Partial Thromboplastin Ratio 1.4; Partial Thromboplastin Time 36.6 Seconds (21.0-31.0)
[2018-07-24] MEDS ORDERED: HEPARIN IV BOLUS 4,500 UNITS in SYRINGE 0 ML IV ONE (06:15)
[2018-07-24] MEDS: INSULIN ASPART 100 UNITS/ML 3 ML PEN SC SCH ×4 (07:45→20:59)
[2018-07-24] MEDS: AMIODARONE 200 MG TAB PO SCH (07:46)
[2018-07-24] MEDS: FLUTICASONE/SALMETEROL (ADVAIR) 500/50 INH 14 PUFF INH SCH ×2 (07:46→20:52)
[2018-07-24] MEDS: INSULIN GLARGINE SOLOSTAR 100 UNITS/ML 3 ML PEN SC SCH ×2 (07:47→20:59)
[2018-07-24] MEDS: METOPROLOL TARTRATE 50 MG TAB PO SCH ×3 (07:50→20:52)
--- NOTE | 2018-07-24 10:02 | Surgery Progress Note ---
Date of Service July 24, 2018 Assessment & Plan (1) Diverticulitis of colon with perforation: Acute diverticulitis with microperforation Responding to conservative measures No surgical intervention required Continue with antibiotics Tolerating diet Subjective Feels well today Denies pain, states he has only soreness Bowel movements continue No hematochezia Denies nausea and vomiting Tolerated regular diet Physical Exam Gastrointestinal (Abdomen): Inspection/Auscultation: abdomen not distended Percussion/Palpation: abdomen soft; abdomen nontender Results & Data Vital Signs (Past 12 Hours) Vital Signs Temp Pulse Pulse Pulse Resp BP Pulse Ox 07/24/18 07:56 82 07/24/18 07:25 36.7 C 40 L 18 159/72 H 94 07/24/18 00:21 37.1 C 84 19 148/97 H 93 07/23/18 22:40 70 16 94 Laboratory Results 07/24/18 07/24/18 07/23/18 Range/Units 07:33 05:32 21:42 APTT 36.6 H 33.6 H (21.0-31.0) Seconds PTT Ratio 1.4 1.2 POC Glucose 184 H (70-99) 07/23/18 07/23/18 07/23/18 Range/Units 20:37 16:33 14:04 APTT 34.2 H (21.0-31.0) Seconds PTT Ratio 1.3 POC Glucose 248 H 211 H (70-99) 07/23/18 07/23/18 Range/Units 11:31 11:30 APTT (21.0-31.0) Seconds PTT Ratio POC Glucose 322 H* 318 H* (70-99) (1) Diverticulitis of colon with perforation Diverticulitis bleeding: without bleeding Qualified Code(s): K57.20 - Diverticulitis of large intestine with perforation and abscess without bleeding
[2018-07-24 10:19] LABS: Basophils # (auto) 0.02 K/uL (0-0.2); Basophils % (auto) 0.4 %; Eosinophils % (auto) 1.9 %; Hematocrit (blood only) 42.3 % (42-52); Hemoglobin 13.8 g/dL (14.0-18.0); Immature Granulocytes # (auto) 0.09 K/uL (0.00-0.02); Immature Granulocytes % (auto) 1.7 %; Lymphocytes # (auto) 0.55 K/uL (1.2-3.4); Lymphocytes % (auto) 10.4 %; Mean Corpuscular Hgb Conc 32.6 g/dL (32-36); Mean Corpuscular Volume 87.2 fL (80-100); Mean Platelet Volume 11.3 fL (7.4-10.4); Monocytes # (auto) 0.58 K/uL (0.11-0.59); Neutrophils # (auto) 3.94 K/uL (1.4-6.5); Neutrophils % (auto) 74.6 %; Platelet Count 112 K/uL (130-400); RDW Coefficient of Variation 14.3 % (11.5-14.5); RDW Standard Deviation 45.7 fL (36.4-46.3); Red Blood Count 4.85 M/uL (4.7-6.1); White Blood Count 5.28 K/uL (4.8-10.8)
[2018-07-24 10:22] LABS: BUN Creatinine Ratio 12.9 (10-20); Calcium 8.7 mg/dl (8.5-10.1); Creatinine Clr Calc Pharmacy 30.9 ml/min; Est GFR (African American) 24.9; Est GFR (Non-African American) 21.5; Potassium 4.8 mmol/L (3.5-5.1)
--- NOTE | 2018-07-24 10:25 | Nephrology Progress Note ---
Date of Service July 24, 2018 Assessment & Plan (1) Acute kidney injury superimposed on CKD: -- Continue to hold Metformin, Glipizide, and Januvia -- Document I/O's -- Continue Bumex PRN to encourage even fluid balance -- AM labs pending -- Urine microscopy is negative for coarse granular casts. Abdominal CT was negative for hydronephrosis -- Monitor UO and serial PRP (2) Diverticulitis of colon with perforation: -- IV Zosyn -- Clinically improving w/ antibiotic therapy Subjective No acute events overnight. Bairon feels well this morning. Tolerating regular diet. Mild left lower quadrant abdominal pain. No fevers or chills. Good urine output. I/O not accurately documented. Remains on supplemental O2. Bairon uses O2 at home QHS. He denies dyspnea or orthopnea. Denies edema. Review of Systems Review of Systems: All systems reviewed & are unremarkable except as noted in HPI & below Physical Exam Constitutional: + obese; no acute distress Eyes: PERRL, conjunctivae normal, anicteric sclerae Neck: trachea midline, no thyromegaly Respiratory: normal respiratory effort, lungs clear to auscultation Cardiovascular: RRR, no murmur, no edema Gastrointestinal (Abdomen): Inspection/Auscultation: + hypoactive bowel sounds Percussion/Palpation: + abdomen tender (no guarding) and abdomen soft Musculoskeletal: Extremities: no cyanosis and no clubbing Skin: no rashes, warm and dry Neurologic: Motor/Sensory: no tremor and no asterixis Results & Data Vital Signs (Past 12 Hours) Vital Signs Temp Pulse Pulse Pulse Resp BP Pulse Ox 07/24/18 07:56 82 07/24/18 07:25 36.7 C 40 L 18 159/72 H 94 07/24/18 00:21 37.1 C 84 19 148/97 H 93 07/23/18 22:40 70 16 94 Laboratory Results Laboratory Results - last 24 hr 07/23/18 07/23/18 07/23/18 11:30 11:31 14:04 WBC RBC Hgb Hct MCV MCH MCHC RDW Std Deviation RDW Coeff of Guy Plt Count MPV Immature Gran % (Auto) Neut % (Auto) Lymph % (Auto) [place] % (Auto) Eos % (Auto) Baso % (Auto) Immature Gran # (Auto) Neut # (Auto) Lymph # (Auto) [place] # (Auto) Eos # (Auto) Baso # (Auto) APTT 34.2 H PTT Ratio 1.3 Sodium Potassium Chloride Carbon Dioxide Anion Gap BUN Creatinine Est Cr Clr Drug Dosing Est GFR ( Amer) Est GFR (Non-Af Amer) BUN/Creatinine Ratio Glucose POC Glucose 318 H* 322 H* Calcium 07/23/18 07/23/18 07/23/18 16:33 20:37 21:42 WBC RBC Hgb Hct MCV MCH MCHC RDW Std Deviation RDW Coeff of Guy Plt Count MPV Immature Gran % (Auto) Neut % (Auto) Lymph % (Auto) [place] % (Auto) Eos % (Auto) Baso % (Auto) Immature Gran # (Auto) Neut # (Auto) Lymph # (Auto) [place] # (Auto) Eos # (Auto) Baso # (Auto) APTT 33.6 H PTT Ratio 1.2 Sodium Potassium Chloride Carbon Dioxide Anion Gap BUN Creatinine Est Cr Clr Drug Dosing Est GFR ( Amer) Est GFR (Non-Af Amer) BUN/Creatinine Ratio Glucose POC Glucose 211 H 248 H Calcium 07/24/18 07/24/18 07/24/18 05:32 05:32 05:32 WBC 5.28 RBC 4.85 Hgb 13.8 L Hct 42.3 MCV 87.2 MCH 28.5 MCHC 32.6 RDW Std Deviation 45.7 RDW Coeff of Guy 14.3 Plt Count 112 L MPV 11.3 H Immature Gran % (Auto) 1.7 Neut % (Auto) 74.6 Lymph % (Auto) 10.4 [place] % (Auto) 11.0 Eos % (Auto) 1.9 Baso % (Auto) 0.4 Immature Gran # (Auto) 0.09 H Neut # (Auto) 3.94 Lymph # (Auto) 0.55 L [place] # (Auto) 0.58 Eos # (Auto) 0.10 Baso # (Auto) 0.02 APTT 36.6 H PTT Ratio 1.4 Sodium 138 Potassium 4.8 Chloride 106 Carbon Dioxide 26 Anion Gap 6.0 BUN 38 H Creatinine 2.92 H Est Cr Clr Drug Dosing 30.9 Est GFR ( Amer) 24.9 Est GFR (Non-Af Amer) 21.5 BUN/Creatinine Ratio 12.9 Glucose 200 H POC Glucose Calcium 8.7 07/24/18 07:33 WBC RBC Hgb Hct MCV MCH MCHC RDW Std Deviation RDW Coeff of Guy Plt Count MPV Immature Gran % (Auto) Neut % (Auto) Lymph % (Auto) [place] % (Auto) Eos % (Auto) Baso % (Auto) Immature Gran # (Auto) Neut # (Auto) Lymph # (Auto) [place] # (Auto) Eos # (Auto) Baso # (Auto) APTT PTT Ratio Sodium Potassium Chloride Carbon Dioxide Anion Gap BUN Creatinine Est Cr Clr Drug Dosing Est GFR ( Amer) Est GFR (Non-Af Amer) BUN/Creatinine Ratio Glucose POC Glucose 184 H Calcium (1) Diverticulitis of colon with perforation Diverticulitis bleeding: without bleeding Qualified Code(s): K57.20 - Diverticulitis of large intestine with perforation and abscess without bleeding
--- NOTE | 2018-07-24 12:51 | Hospitalist Progress Note ---
Date of Service July 24, 2018 Assessment & Plan (1) Diverticulitis of colon with perforation: Patient with right-sided sigmoid diverticulitis with perforation with pneumoperitoneum evident on CT scan. Presented with diffuse tenderness of the abdomen right greater than left with guarding on the right. Was initially febrile but now resolved for many days He has no leukocytosis ([id number]), lactate is normal, no evidence of sepsis otherwise Is significantly improved since admission, continues with very minimal pain in RLQ, abdomen soft Has had multiple bowel movements and is tolerating low fiber Initial blood cultures with 2 out of 2 sets of Clostridium ramosum His repeat blood cultures show no growth to date -Continue IV Zosyn and will convert to Augmentin 875 mg p.o. twice daily to complete a 2-week course at the time of discharge -Appreciate general surgery consultation-no surgical intervention needed at this time, but could have elective colectomy in the future -will need outpatient colonoscopy in 6 weeks after resolution -Anticipate discharge in the next 1 to 2 days (2) Atrial fibrillation: Paroxysmal atrial fibrillation and flutter-follows with cardiology Was in normal sinus rhythm throughout his stay but then converted to atrial flutter with 2-1 block with rates in the 90s on 07/22 -When n.p.o., were holding p.o. amiodarone- now the Amiodarone is resumed and now back in a sinus rhythm with normal rates -continue metoprolol 25 mg p.o. twice daily for rate control -Discontinue heparin drip and start Lovenox 1 danny per cake every 24 hours which is renal dosing of therapeutic Lovenox for bridging -Okay to restart Coumadin tomorrow at home dose of 6 mg once daily-discussed with surgeon -Follow INR in the morning (3) Asthma: Stable, no acute issues -Continue home Advair, albuterol nebs as needed (4) Sleep apnea: Continue home CPAP 14 cm H2O (5) Hypertension: Blood pressures acceptable to elevated -Continue metoprolol -Continue Bumex as needed-no dose given today (6) Acute kidney injury superimposed on CKD: Cr en to 3.2, trended downward with treatment of infection and IV fluids, but now with trend back slightly upward to 2.92 He did receive 1 dose of p.o. Bumex on 07/23-his eyes and nose are not adequately recorded and there are multiple episodes of unmeasured voids documented He has however weaned to room air by the end of today which perhaps is a sign that his volume overload is improving -Hold off on further Bumex today and reassess tomorrow -Follow BMP (7) Hypothyroidism: TSH mildly elevated recently as an outpatient was advised to increase levothyroxine 88 mcg -Treated initially with IV levothyroxine and now transition back to home dose of levothyroxine 88 mcg p.o. once daily -Follow thyroid function tests in 4 to 6 weeks as an outpatient given recent increase in dose (8) Diabetes mellitus, type 2: With severe hyperglycemia here at 479 upon admission, no evidence of acidosis other than mildly elevated beta hydroxybutyric acid. Hyperglycemia likely secondary to stress of illness plus recent dosing of methylprednisolone HgbA1C 8.6%, uncontrolled -Was given regular insulin 10 units IV x1 upon admission and was since treated with basal bolus insulin regimen With hyperglycemia again now that he is eating regular meals -Increase Lantus to 15 units in the morning and 5 units at night -cont NovoLog supplemental insulin and lower carb coverage -Continue holding home metformin, glipizide, and Januvia and would not restart metformin in the future given GFR less than 46 (9) Gout: With acute flare of the right ankle-treated with methylprednisolone x2 doses prior to admission-some pain remains today in the right lateral ankle -Hold off on further steroids at this time as may have contributed to friability of the bowel -Would not treat with NSAIDs or colchicine given renal failure -Observe for worsening -Unfortunately, not much to do at this point, could try topical Voltaren gel-if very severe pain, could consider consulting orthopedics for localized steroid injection (10) CKD (chronic kidney disease) stage 3, GFR 30-59 ml/min: Baseline creatinine around 2.0, GFR just above 30. Creatinine upon admission is 2.0 and then up to 3.20 He has no evidence of urinary obstruction on recent CT imaging. -Consult nephrology-appreciate consultation -Avoid nephrotoxins -Renally dose medications when appropriate (11) Chronic diastolic CHF (congestive heart failure): Long history of such and also with previous history of systolic dysfunction secondary to tachyarrhythmia induced cardiomyopathy which is now resolved He was volume down/dehydrated at the time of admission, now improved Have since discontinued IV fluids Received 1 dose of Bumex 1mg PO on 07/23 and seems to have helped although I's and O's not accurately recorded -Continue Daily weights, I's and O's (12) Thrombocytopenia: Platelets typically around 100 K for at least the last 5 years, here at [place] of 66 K and likely secondary to acute illness-now improved again up to 112 Unclear etiology -Follow CBC (13) Hyperkalemia: resolved with improvement of renal function although remains on the high end of normal adding back Bumex will help even further when able to do so -Follow BMP -Follow low potassium diet (14) Hypoxia: Is now weaned down to room air by the end of the day after receiving 1 dose of Bumex yesterday -Also has asthma and was wheezing previously which is now resolved -Continue home inhalers -Add back Bumex if renal function stable to improved tomorrow -May need two step if ends up going home he uses oxygen at home but only at night (15) DVT prophylaxis: SCDs, SARAH rivera Heparin drip converted to Lovenox bridging today Starting Coumadin on 07/25 Disposition-remain hospitalized, if renal function continues to improve tomorrow, will look at rehab placement as patient and his girlfriend desire- appreciate case management assistance with this Full code Patient reports that if he were in a vegetative-like state requiring life support, he would not want to live that way if there was no hope for recovery He designates his older brother Bang Johnson as his healthcare spokesperson if needed Subjective Patient feeling really today. Is tolerating a regular diet and continues to move his bowels daily which is nonbloody. Denies chest pain or shortness of breath but remains on oxygen at times. I discussed the case with general surgery today who is okay with restarting Coumadin. Review of Systems Review of Systems: All systems reviewed & are unremarkable except as noted in HPI & below Physical Exam Constitutional: WD/WN, vitals as above Eyes: PERRL, conjunctivae normal, anicteric sclerae ENMT: Ears: no hearing impairment and no external ear abnormality Nose: + external nose abnormality (Bulbous nose) Neck: trachea midline, no thyromegaly Respiratory: normal respiratory effort (with NC in place) Auscultation: no crackles, no rhonchi and no wheezes Cardiovascular: RRR, no murmur, no edema Gastrointestinal (Abdomen): Inspection/Auscultation: abdomen normal to inspection and normal bowel sounds; abdomen not distended Percussion/Palpation: + abdomen tender (Very minimal TTP in RLQ without guarding or rebound) and abdomen soft; no guarding, abdomen not rigid and no hernia Musculoskeletal: Extremities: no cyanosis and no clubbing Skin: no rashes, warm and dry + erythema (Rosacea of the cheeks and nose) Neurologic: moves all extremities and awake; no focal motor deficits Psychiatric: A+Ox3, euthymic affect Results & Data Vital Signs (Past 12 Hours) Vital Signs Temp Pulse Pulse Resp BP Pulse Ox 07/24/18 07:56 82 07/24/18 07:25 36.7 C 40 L 18 159/72 H 94 Laboratory Results 07/24/18 07/24/18 07/24/18 Range/Units 20:57 16:29 11:35 WBC (4.8-10.8) K/uL RBC (4.7-6.1) M/uL Hgb (14.0-18.0) g/dL Hct (42-52) % MCV (80-100) fL MCH (25-34) pg MCHC (32-36) g/dL RDW Std Deviation (36.4-46.3) fL RDW Coeff of Guy (11.5-14.5) % Plt Count (130-400) K/uL MPV (7.4-10.4) fL Immature Gran % (Auto) % Neut % (Auto) % Lymph % (Auto) % [place] % (Auto) % Eos % (Auto) % Baso % (Auto) % Immature Gran # (Auto) (0.00-0.02) K/uL Neut # (Auto) (1.4-6.5) K/uL Lymph # (Auto) (1.2-3.4) K/uL [place] # (Auto) (0.11-0.59) K/uL Eos # (Auto) (0-0.5) K/uL Baso # (Auto) (0-0.2) K/uL APTT (21.0-31.0) Seconds PTT Ratio Sodium (136-145) mmol/L Potassium (3.5-5.1) mmol/L Chloride (98-107) mmol/L Carbon Dioxide (21-32) mmol/L Anion Gap (3-11) BUN (7-18) mg/dl Creatinine (0.6-1.4) mg/dl Est Cr Clr Drug Dosing ml/min Est GFR ( Amer) Est GFR (Non-Af Amer) BUN/Creatinine Ratio (10-20) Glucose (70-99) mg/dl POC Glucose 244 H 273 H 298 H (70-99) Calcium (8.5-10.1) mg/dl 07/24/18 07/24/18 07/24/18 Range/Units 11:34 07:33 05:32 WBC (4.8-10.8) K/uL RBC (4.7-6.1) M/uL Hgb (14.0-18.0) g/dL Hct (42-52) % MCV (80-100) fL MCH (25-34) pg MCHC (32-36) g/dL RDW Std Deviation (36.4-46.3) fL RDW Coeff of Guy (11.5-14.5) % Plt Count (130-400) K/uL MPV (7.4-10.4) fL Immature Gran % (Auto) % Neut % (Auto) % Lymph % (Auto) % [place] % (Auto) % Eos % (Auto) % Baso % (Auto) % Immature Gran # (Auto) (0.00-0.02) K/uL Neut # (Auto) (1.4-6.5) K/uL Lymph # (Auto) (1.2-3.4) K/uL [place] # (Auto) (0.11-0.59) K/uL Eos # (Auto) (0-0.5) K/uL Baso # (Auto) (0-0.2) K/uL APTT (21.0-31.0) Seconds PTT Ratio Sodium 138 (136-145) mmol/L Potassium 4.8 (3.5-5.1) mmol/L Chloride 106 (98-107) mmol/L Carbon Dioxide 26 (21-32) mmol/L Anion Gap 6.0 (3-11) BUN 38 H (7-18) mg/dl Creatinine 2.92 H (0.6-1.4) mg/dl Est Cr Clr Drug Dosing 30.9 ml/min Est GFR ( Amer) 24.9 Est GFR (Non-Af Amer) 21.5 BUN/Creatinine Ratio 12.9 (10-20) Glucose 200 H (70-99) mg/dl POC Glucose 313 H* 184 H (70-99) Calcium 8.7 (8.5-10.1) mg/dl 07/24/18 07/24/18 Range/Units 05:32 05:32 WBC 5.28 (4.8-10.8) K/uL RBC 4.85 (4.7-6.1) M/uL Hgb 13.8 L (14.0-18.0) g/dL Hct 42.3 (42-52) % MCV 87.2 (80-100) fL MCH 28.5 (25-34) pg MCHC 32.6 (32-36) g/dL RDW Std Deviation 45.7 (36.4-46.3) fL RDW Coeff of Guy 14.3 (11.5-14.5) % Plt Count 112 L (130-400) K/uL MPV 11.3 H (7.4-10.4) fL Immature Gran % (Auto) 1.7 % Neut % (Auto) 74.6 % Lymph % (Auto) 10.4 % [place] % (Auto) 11.0 % Eos % (Auto) 1.9 % Baso % (Auto) 0.4 % Immature Gran # (Auto) 0.09 H (0.00-0.02) K/uL Neut # (Auto) 3.94 (1.4-6.5) K/uL Lymph # (Auto) 0.55 L (1.2-3.4) K/uL [place] # (Auto) 0.58 (0.11-0.59) K/uL Eos # (Auto) 0.10 (0-0.5) K/uL Baso # (Auto) 0.02 (0-0.2) K/uL APTT 36.6 H (21.0-31.0) Seconds PTT Ratio 1.4 Sodium (136-145) mmol/L Potassium (3.5-5.1) mmol/L Chloride (98-107) mmol/L Carbon Dioxide (21-32) mmol/L Anion Gap (3-11) BUN (7-18) mg/dl Creatinine (0.6-1.4) mg/dl Est Cr Clr Drug Dosing ml/min Est GFR ( Amer) Est GFR (Non-Af Amer) BUN/Creatinine Ratio (10-20) Glucose (70-99) mg/dl POC Glucose (70-99) Calcium (8.5-10.1) mg/dl (1) Diverticulitis of colon with perforation Diverticulitis bleeding: without bleeding Qualified Code(s): K57.20 - Diverticulitis of large intestine with perforation and abscess without bleeding
[2018-07-24] MEDS: ENOXAPARIN INJ 120 MG/0.8 ML SYR SQ SCH (15:58)
[2018-07-25] MEDS: PIPERACILLIN/TAZOBACTAM 4.5 GM in DEXTROSE 5% 100 ML IV SCH ×3 (03:57→19:37)
[2018-07-25] MEDS: LEVOTHYROXINE SODIUM 88 MCG TABLET PO SCH (06:11)
[2018-07-25 06:38] LABS: Hematocrit (blood only) 42.6 % (42-52); Hemoglobin 13.9 g/dL (14.0-18.0); Mean Corpuscular Hgb Conc 32.6 g/dL (32-36); Mean Corpuscular Volume 87.3 fL (80-100); Mean Platelet Volume 10.6 fL (7.4-10.4); Platelet Count 103 K/uL (130-400); RDW Coefficient of Variation 14.1 % (11.5-14.5); RDW Standard Deviation 45.2 fL (36.4-46.3); Red Blood Count 4.88 M/uL (4.7-6.1); White Blood Count 5.01 K/uL (4.8-10.8)
[2018-07-25 07:09] LABS: Albumin Level 2.5 gm/dl (3.4-5.0); BUN Creatinine Ratio 13.6 (10-20); Calcium 8.7 mg/dl (8.5-10.1); Creatinine Clr Calc Pharmacy 30.2 ml/min; Est GFR (African American) 24.3; Potassium 5.3 mmol/L (3.5-5.1)
[2018-07-25 07:10] LABS: Phosphorus 3.1 mg/dl (2.5-4.9)
[2018-07-25] MEDS: INSULIN ASPART 100 UNITS/ML 3 ML PEN SC SCH ×4 (07:49→20:31)
[2018-07-25] MEDS: FLUTICASONE/SALMETEROL (ADVAIR) 500/50 INH 14 PUFF INH SCH ×2 (07:49→20:30)
[2018-07-25] MEDS: AMIODARONE 200 MG TAB PO SCH (07:50)
[2018-07-25] MEDS: METOPROLOL TARTRATE 50 MG TAB PO SCH ×2 (07:50→20:29)
[2018-07-25] MEDS: INSULIN GLARGINE SOLOSTAR 100 UNITS/ML 3 ML PEN SC SCH ×2 (07:51→20:32)
--- NOTE | 2018-07-25 10:49 | Nephrology Progress Note ---
Date of Service July 25, 2018 Assessment & Plan (1) Acute kidney injury superimposed on CKD: 63-year-old gentlemen with acute kidney injury the setting of sigmoid diverticulitis. History of CKD with baseline creatinine around 2.0. GAYATRI most likely hemodynamically mediated. Urine microscopy is negative for coarse granular casts. Abdominal CT was negative for hydronephrosis. Slow recovery with creatinine staying around 2.8-3.0, electrolyte acceptable. Nonoliguric. -- Continue to hold Metformin, Glipizide, and Januvia -- Document I/O's -- Continue Bumex PRN to encourage even fluid balance -- Monitor UO and serial PRP Will follow (2) Diverticulitis of colon with perforation: -- IV Zosyn -- Clinically improving w/ antibiotic therapy Yaron Waddell was seen examined in his room this morning, overall feeling well, no acute events overnight. Tolerating regular diet. Mild left lower quadrant abdominal pain. No fevers or chills. Good urine output. Slow recovery from recent acute kidney injury could, creatinine staying around 2.9-3.0 with baseline creatinine seems to be around 2. Review of Systems Review of Systems: Detailed review of system was otherwise unremarkable except pertinent positive and negative findings mention above in history of present illness. Physical Exam Constitutional: WD/WN, vitals as above + obese Respiratory: normal respiratory effort, lungs clear to auscultation Cardiovascular: RRR, no murmur, no edema Neurologic: moves all extremities and awake Psychiatric: A+Ox3, euthymic affect Results & Data Vital Signs (Past 12 Hours) Vital Signs Temp Pulse Resp BP Pulse Ox 07/25/18 07:15 36.6 C 85 18 159/91 H 96 07/24/18 23:49 36.8 C 69 19 139/82 93 (1) Diverticulitis of colon with perforation Diverticulitis bleeding: without bleeding Qualified Code(s): K57.20 - Diverticulitis of large intestine with perforation and abscess without bleeding
--- NOTE | 2018-07-25 12:02 | Progress Note ---
Date of Service July 25, 2018 Assessment & Plan (1) Diverticulitis of colon with perforation: Mr. Johnson is a 63 yo male who presents with acute perforated diverticulitis. CT scan reveals sigmoid diverticulitis with colonic wall thickening with pericolonic stranding, trace free fluid, and adjacent pneumoperitoneum as well as a small amount of air and fluid tracking toward the ascending colon. He did well with conservative management with IV abx. In the elective setting with perforated diverticulitis recommendation is for colonoscopy and discussion about potential elective colonic resection. - Low fiber diet (continue for 2 weeks) - Okay from surgical standpoint to transition to oral abx - Recommend TEDS, SCDs, and VTE chemoprophylaxis - From surgical standpoint is stable for discharge - Will need outpatient colonoscopy after acute episode resolves and discussion with a surgeon to discuss possible elective resection - Will sign off. Please do not hesitate to contact us with any questions or concerns Diverticulitis bleeding: without bleeding Qualified Code(s): K57.20 - Diverticulitis of large intestine with perforation and abscess without bleeding Subjective Patient is doing significantly better compared to Wednesday when I last saw him. He denies abdominal pain. Tolerating a diet. Denies nausea. (+) BM. Physical Exam Constitutional: no acute distress Respiratory: normal respiratory effort Cardiovascular: Rate/Rhythm: regular rate Gastrointestinal (Abdomen): soft, distended, nontender Results & Data Vital Signs (Past 12 Hours) Vital Signs Temp Pulse Resp BP Pulse Ox 07/25/18 07:15 36.6 C 85 18 159/91 H 96 Laboratory Results 07/25/18 07/25/18 07/25/18 Range/Units 11:15 07:33 06:19 WBC (4.8-10.8) K/uL RBC (4.7-6.1) M/uL Hgb (14.0-18.0) g/dL Hct (42-52) % MCV (80-100) fL MCH (25-34) pg MCHC (32-36) g/dL RDW Std Deviation (36.4-46.3) fL RDW Coeff of Guy (11.5-14.5) % Plt Count (130-400) K/uL MPV (7.4-10.4) fL Sodium 138 (136-145) mmol/L Potassium 5.3 H (3.5-5.1) mmol/L Chloride 106 (98-107) mmol/L Carbon Dioxide 27 (21-32) mmol/L Anion Gap 5.0 (3-11) BUN 41 H (7-18) mg/dl Creatinine 2.98 H (0.6-1.4) mg/dl Est Cr Clr Drug Dosing 30.2 ml/min Est GFR ( Amer) 24.3 Est GFR (Non-Af Amer) 21.0 BUN/Creatinine Ratio 13.6 (10-20) Glucose 200 H (70-99) mg/dl POC Glucose 249 H 212 H (70-99) Calcium 8.7 (8.5-10.1) mg/dl Phosphorus 3.1 (2.5-4.9) mg/dl Albumin 2.5 L (3.4-5.0) gm/dl 07/25/18 07/24/18 07/24/18 Range/Units 06:19 20:57 16:29 WBC 5.01 (4.8-10.8) K/uL RBC 4.88 (4.7-6.1) M/uL Hgb 13.9 L (14.0-18.0) g/dL Hct 42.6 (42-52) % MCV 87.3 (80-100) fL MCH 28.5 (25-34) pg MCHC 32.6 (32-36) g/dL RDW Std Deviation 45.2 (36.4-46.3) fL RDW Coeff of Guy 14.1 (11.5-14.5) % Plt Count 103 L (130-400) K/uL MPV 10.6 H (7.4-10.4) fL Sodium (136-145) mmol/L Potassium (3.5-5.1) mmol/L Chloride (98-107) mmol/L Carbon Dioxide (21-32) mmol/L Anion Gap (3-11) BUN (7-18) mg/dl Creatinine (0.6-1.4) mg/dl Est Cr Clr Drug Dosing ml/min Est GFR ( Amer) Est GFR (Non-Af Amer) BUN/Creatinine Ratio (10-20) Glucose (70-99) mg/dl POC Glucose 244 H 273 H (70-99) Calcium (8.5-10.1) mg/dl Phosphorus (2.5-4.9) mg/dl Albumin (3.4-5.0) gm/dl
--- NOTE | 2018-07-25 14:38 | Hospitalist Progress Note ---
Date of Service July 25, 2018 Assessment & Plan (1) Diverticulitis of colon with perforation: Patient with right-sided sigmoid diverticulitis with perforation with pneumoperitoneum evident on CT scan. Presented with diffuse tenderness of the abdomen right greater than left with guarding on the right. Was initially febrile but now resolved for many days WBC continues to be normal, lactate is normal, no evidence of sepsis otherwise Is significantly improved since admission, continues with very minimal pain in RLQ, abdomen soft Has had multiple bowel movements and is tolerating low fiber Initial blood cultures with 2 out of 2 sets of Clostridium ramosum His repeat blood cultures show no growth to date -Continue IV Zosyn and will convert to Augmentin 875 mg p.o. twice daily to complete a 2-week course at the time of discharge -Appreciate general surgery consultation-no surgical intervention needed at this time, but could have elective colectomy in the future -will need outpatient colonoscopy in 6 weeks after resolution -Anticipate discharge tomorrow (2) Acute kidney injury superimposed on CKD: Cr en to 3.2, trended downward with treatment of infection and IV fluids, but now with trend back slightly upward to 2.92 He did receive 1 dose of p.o. Bumex on 07/23-his eyes and nose are not adequately recorded and there are multiple episodes of unmeasured voids documented He has however weaned to room air by the end of today which perhaps is a sign that his volume overload is improving Cr stable at 2.9 but still up from baseline, likely represents ATN he reports he is making a lot of urine, examines euvolemic received dose of Bumex on 07/23 for some signs of volume overload repeat BMP this afternoon and tomorrow likely okay for discharge tomorrow as long as Cr remains stable can be followed outpatient (3) Hyperkalemia: up slightly to 5.3 today repeat this afternoon and tomorrow AM will give a dose of Kayexalate if still high this afternoon (4) Atrial fibrillation: Paroxysmal atrial fibrillation and flutter-follows with cardiology Was in normal sinus rhythm throughout his stay but then converted to atrial flutter with 2-1 block with rates in the 90s on 07/22 -continue Amiodarone, in a sinus rhythm with normal rates -continue metoprolol 25 mg p.o. twice daily for rate control -Discontinue heparin drip and start Lovenox 1 danny per cake every 24 hours which is renal dosing of therapeutic Lovenox for bridging -Okay to restart Coumadin tomorrow at home dose of 6 mg once daily-discussed with surgeon will need to go on Lovenox bridge and Coumadin (5) Asthma: Stable, no acute issues -Continue home Advair, albuterol nebs as needed (6) Sleep apnea: Continue home CPAP 14 cm H2O (7) Hypertension: Blood pressures acceptable to elevated -Continue metoprolol -Continue Bumex as needed-no dose given again today (8) Hypothyroidism: TSH mildly elevated recently as an outpatient was advised to increase levothyroxine 88 mcg -Treated initially with IV levothyroxine and now transition back to home dose of levothyroxine 88 mcg p.o. once daily -Follow thyroid function tests in 4 to 6 weeks as an outpatient given recent increase in dose (9) Diabetes mellitus, type 2: With severe hyperglycemia here at 479 upon admission, no evidence of acidosis other than mildly elevated beta hydroxybutyric acid. Hyperglycemia likely secondary to stress of illness plus recent dosing of methylprednisolone HgbA1C 8.6%, uncontrolled -Was given regular insulin 10 units IV x1 upon admission and was since treated with basal bolus insulin regimen With hyperglycemia again now that he is eating regular meals -Increase Lantus to 15 units in the morning and 5 units at night -cont NovoLog supplemental insulin and lower carb coverage -Continue holding home metformin, glipizide, and Januvia and would not restart metformin in the future given GFR less than 46 (10) Gout: With acute flare of the right ankle-treated with methylprednisolone x2 doses prior to admission-some pain remains today in the right lateral ankle -Hold off on further steroids at this time as may have contributed to friability of the bowel -Would not treat with NSAIDs or colchicine given renal failure -Observe for worsening -Unfortunately, not much to do at this point, could try topical Voltaren gel-if very severe pain, could consider consulting orthopedics for localized steroid injection (11) CKD (chronic kidney disease) stage 3, GFR 30-59 ml/min: Baseline creatinine around 2.0, GFR just above 30. Creatinine upon admission is 2.0 and then up to 3.20 He has no evidence of urinary obstruction on recent CT imaging. -Consult nephrology-appreciate consultation -Avoid nephrotoxins -Renally dose medications when appropriate (12) Chronic diastolic CHF (congestive heart failure): Long history of such and also with previous history of systolic dysfunction secondary to tachyarrhythmia induced cardiomyopathy which is now resolved He was volume down/dehydrated at the time of admission, now improved Have since discontinued IV fluids Received 1 dose of Bumex 1mg PO on 07/23 and seems to have helped although I's and O's not accurately recorded -Continue Daily weights, I's and O's (13) Thrombocytopenia: chronic issue, stable today at 103k (14) Hypoxia: likely a combination of slight volume overload and atelectasis resolved after a single dose of Bumex continue to monitor (15) DVT prophylaxis: SCDs, SARAH hosyolande Heparin drip converted to Lovenox bridge Starting Coumadin on 07/25 Disposition- per PT, can go home with home health d/w CM, would be difficult to get rehab approved given how well he did likely home tomorrow Full code Patient reports that if he were in a vegetative-like state requiring life support, he would not want to live that way if there was no hope for recovery He designates his older brother Bang Johnson as his healthcare spokesperson if needed Subjective patient continues to recover from the diverticulitis minimal pain in RLQ eating great, tolerating low fiber diet for two days moving bowels, still on the loose side no fever or chills, no chest pain, no dyspnea evaluated by therapy, recommend home health and home therapy reviewed labs, Cr still elevated at 2.98 and K slightly high at 5.3, will repeat this afternoon WBC continues to be normal and Hb is 13.9 Review of Systems Review of Systems: All systems reviewed & are unremarkable except as noted in HPI & below Constitutional: no fever Respiratory: no cough and no dyspnea Cardiovascular: no chest pain Gastrointestinal: + abdominal pain (minimal pain in RLQ) and + diarrhea/loose stools; no nausea, no vomiting and no constipation Physical Exam Constitutional: WD/WN, vitals as above + obese; no acute distress Eyes: PERRL, conjunctivae normal, anicteric sclerae ENMT: external ear and nose normal, oropharynx normal Neck: trachea midline, no thyromegaly Respiratory: normal respiratory effort, lungs clear to auscultation Cardiovascular: Rate/Rhythm: regular rate and regular rhythm Heart Sounds: normal S1 and normal S2; no murmur Vessels: no JVD Extremities: normal capillary refill; no edema Gastrointestinal (Abdomen): Inspection/Auscultation: abdomen normal to inspection and normal bowel sounds Percussion/Palpation: + abdomen tender (RLQ, minimal pain), abdomen soft and normal to percussion; no guarding, abdomen not rigid and no hernia Musculoskeletal: no cyanosis or clubbing, extremities motor strength 5/5 Skin: no rashes, warm and dry Neurologic: patellar DTR's 2+ bilat, sensation intact and PERRL, EOMI, accommodation nl, no face palsy, no dysarthria Psychiatric: A+Ox3, euthymic affect Lymphatic: no cervical or axillary lymphadenopathy Results & Data Vital Signs (Past 12 Hours) Vital Signs Temp Pulse Resp BP Pulse Ox 07/25/18 07:15 36.6 C 85 18 159/91 H 96 Laboratory Results Laboratory Results - last 24 hr 07/24/18 07/24/18 07/25/18 16:29 20:57 06:19 WBC 5.01 RBC 4.88 Hgb 13.9 L Hct 42.6 MCV 87.3 MCH 28.5 MCHC 32.6 RDW Std Deviation 45.2 RDW Coeff of Guy 14.1 Plt Count 103 L MPV 10.6 H Sodium Potassium Chloride Carbon Dioxide Anion Gap BUN Creatinine Est Cr Clr Drug Dosing Est GFR ( Amer) Est GFR (Non-Af Amer) BUN/Creatinine Ratio Glucose POC Glucose 273 H 244 H Calcium Phosphorus Albumin 07/25/18 07/25/18 07/25/18 06:19 07:33 11:15 WBC RBC Hgb Hct MCV MCH MCHC RDW Std Deviation RDW Coeff of Guy Plt Count MPV Sodium 138 Potassium 5.3 H Chloride 106 Carbon Dioxide 27 Anion Gap 5.0 BUN 41 H Creatinine 2.98 H Est Cr Clr Drug Dosing 30.2 Est GFR ( Amer) 24.3 Est GFR (Non-Af Amer) 21.0 BUN/Creatinine Ratio 13.6 Glucose 200 H POC Glucose 212 H 249 H Calcium 8.7 Phosphorus 3.1 Albumin 2.5 L Medications Administered Current Inpatient Medications Albuterol (Duoneb) 3 ml NEB QIDR PRN PRN Reason: shortness of breath Stop: 08/19/18 09:45 Last Admin: 07/21/18 19:34 Dose: 3 ml Documented by: Amiodarone HCl (Cordarone) 200 mg PO QAM [facility] Stop: 08/22/18 08:59 Last Admin: 07/25/18 07:50 Dose: 200 mg Documented by: Dextrose (Dextrose 50%) 25 - 50 ml IV UD PRN; Protocol PRN Reason: Hypoglycemia Protocol Stop: 08/19/18 09:45 Enoxaparin Sodium (Lovenox) 111 mg SQ DAILY@1400 MARCUS; Protocol Stop: 08/23/18 13:59 Last Admin: 07/24/18 15:58 Dose: 111 mg Documented by: Glucagon (Glucagen) 1 mg SQ UD PRN; Protocol PRN Reason: Hypoglycemia Protocol Stop: 08/19/18 09:45 Glucose (Glucose 40%) 15 - 30 gm PO UD PRN; Protocol PRN Reason: Hypoglycemia Protocol Stop: 08/19/18 09:45 Glucose (Dex4 Glucose) 4 - 8 tabs PO UD PRN; Protocol PRN Reason: Hypoglycemia Protocol Stop: 08/19/18 09:45 Hydromorphone HCl (Dilaudid) 1 mg IV Q3H PRN PRN Reason: Pain Stop: 08/03/18 09:45 Piperacillin Sod/Tazobactam (Sod 4.5 gm/ Dextrose) 120 mls @ 30 mls/hr IV Q8H MARCUS; Protocol Stop: 07/29/18 23:59 Last Admin: 07/25/18 11:55 Dose: 30 mls/hr Documented by: Insulin Aspart (Novolog Flexpen) 0 units SC ACHS [facility] Stop: 08/19/18 11:59 Last Admin: 07/25/18 11:51 Dose: 10 units Documented by: Insulin Glargine (Lantus Solostar Pen) [facility] [place] Stop: 08/24/18 08:59 Last Admin: 07/25/18 07:51 Dose: 15 units Documented by: Insulin Glargine (Lantus Solostar Pen) 5 units SC HS [facility] Stop: 08/23/18 20:59 Last Admin: 07/24/18 20:59 Dose: 5 units Documented by: Levothyroxine Sodium (Synthroid) 88 mcg PO DAILYBB [facility] Stop: 08/23/18 06:29 Last Admin: 07/25/18 06:11 Dose: 88 mcg Documented by: Metoprolol Tartrate (Lopressor) 25 mg PO BID [facility] Stop: 08/21/18 21:59 Last Admin: 07/25/18 07:50 Dose: 25 mg Documented by: Miscellaneous (Carbohydrates For Hypoglycemia) 15 - 30 gm PO UD PRN PRN Reason: Hypoglycemia Treatment Stop: 08/19/18 09:45 Miscellaneous Information (Consult) 1 ea N/A UD PRN PRN Reason: Consult Stop: 08/19/18 09:45 Ondansetron HCl (Zofran) 4 mg IV Q6H PRN PRN Reason: Nausea Stop: 08/19/18 09:45 Fluticasone/Salmeterol (Advair Diskus 500/50) 1 puffs INH BID [facility] Stop: 08/19/18 09:45 Last Admin: 07/25/18 07:49 Dose: 1 puffs Documented by: Warfarin Sodium (Coumadin) 6 mg PO DAILY@1600 [facility] Stop: 08/24/18 15:59 (1) Diverticulitis of colon with perforation Diverticulitis bleeding: without bleeding Qualified Code(s): K57.20 - Diverticulitis of large intestine with perforation and abscess without bleeding
[2018-07-25] MEDS: ENOXAPARIN INJ 120 MG/0.8 ML SYR SQ SCH (15:18)
[2018-07-25 15:31] LABS: BUN Creatinine Ratio 13.9 (10-20); Calcium 8.4 mg/dl (8.5-10.1); Creatinine Clr Calc Pharmacy 28.4 ml/min; Est GFR (African American) 22.6; Est GFR (Non-African American) 19.5; Potassium 4.7 mmol/L (3.5-5.1)
[2018-07-25] MEDS ORDERED: WARFARIN SOD 6 MG TAB PO SCH (16:00)
[2018-07-25] MEDS ORDERED: ALUMINUM/MAGNESIUM SUSP 30 ML UDC PO STA (19:14)
[2018-07-26] MEDS: PIPERACILLIN/TAZOBACTAM 4.5 GM in DEXTROSE 5% 100 ML IV SCH ×2 (03:22→11:45)
[2018-07-26] MEDS: LEVOTHYROXINE SODIUM 88 MCG TABLET PO SCH (05:17)
[2018-07-26 07:45] LABS: INR 1.1 (0.9-1.1); Prothrombin Time 11.2 Seconds (9.0-12.0)
[2018-07-26] MEDS: FLUTICASONE/SALMETEROL (ADVAIR) 500/50 INH 14 PUFF INH SCH (08:04)
[2018-07-26] MEDS: AMIODARONE 200 MG TAB PO SCH (08:04)
[2018-07-26] MEDS: INSULIN GLARGINE SOLOSTAR 100 UNITS/ML 3 ML PEN SC SCH (08:05)
[2018-07-26] MEDS: METOPROLOL TARTRATE 50 MG TAB PO SCH (08:05)
[2018-07-26] MEDS: INSULIN ASPART 100 UNITS/ML 3 ML PEN SC SCH ×2 (08:07→12:25)
[2018-07-26 08:15] LABS: Albumin Level 2.5 gm/dl (3.4-5.0); BUN Creatinine Ratio 14.1 (10-20); Calcium 8.9 mg/dl (8.5-10.1); Creatinine Clr Calc Pharmacy 32.1 ml/min; Est GFR (African American) 26.1; Est GFR (Non-African American) 22.5; Potassium 5.1 mmol/L (3.5-5.1)
[2018-07-26 08:16] LABS: Phosphorus 2.6 mg/dl (2.5-4.9)
[2018-07-26] MEDS ORDERED: AMLODIPINE BESYLATE 5 MG TAB PO SCH (09:00)
--- NOTE | 2018-07-26 09:51 | Nephrology Progress Note ---
Date of Service July 26, 2018 Assessment & Plan (1) Acute kidney injury superimposed on CKD: 63-year-old gentlemen with acute kidney injury the setting of sigmoid diverticulitis. History of CKD with baseline creatinine around 2.0. GAYATRI most likely hemodynamically mediated. Urine microscopy is negative for coarse granular casts. Abdominal CT was negative for hydronephrosis. Slow recovery with creatinine staying around 2.8-3.0, electrolyte acceptable. Nonoliguric. Renal function staying relatively stable with slight improvement, electrolyte acceptable, non-oliguric. Creatinine this morning 2.8 baseline creatinine seems to be around 2.0 -- okay to be discharged from nephrology standpoint, if discharge is planned for later today recommend checking lab in 2 days and then weekly to monitor for recovery of renal function -- Continue to hold Metformin, Glipizide, and Januvia -- Document I/O's -- Continue Bumex PRN to encourage even fluid balance -- Monitor UO and serial PRP --schedule outpatient follow-up with Dr. Hopkins on discharge, please refer the lab to Dr. Hopkins Will follow (2) Diverticulitis of colon with perforation: -- IV Zosyn -- Clinically improving w/ antibiotic therapy Subjective Bairon was seen and examined in his room this morning. His overall feeling better, tolerating regular diet, denies any shortness of breath or chest pain. Continues to have some loose bowel movement but otherwise asymptomatic, no abdominal pain. Blood pressure running slightly elevated. Renal function somewhat stable with slight improvement. Remain non-oliguric. Physical Exam Constitutional: WD/WN, vitals as above + obese Respiratory: normal respiratory effort, lungs clear to auscultation Cardiovascular: RRR, no murmur, no edema Neurologic: moves all extremities and awake Psychiatric: A+Ox3, euthymic affect Results & Data Vital Signs (Past 12 Hours) Vital Signs Temp Pulse Resp BP Pulse Ox 07/26/18 06:56 36.8 C 72 19 178/98 H 92 07/26/18 00:33 36.9 C 67 20 171/90 H 93 (1) Diverticulitis of colon with perforation Diverticulitis bleeding: without bleeding Qualified Code(s): K57.20 - Diverticulitis of large intestine with perforation and abscess without bleeding
[2018-07-26] MEDS: ENOXAPARIN INJ 120 MG/0.8 ML SYR SQ SCH (14:03)
--- NOTE | 2018-07-26 15:48 | Discharge Summary ---
Date of Service July 26, 2018 Admission HPI Per Admitting Provider This patient is a very pleasant 63-year-old male with a history of DM 2, paroxysmal atrial flutter and fibrillation on Coumadin, gout, hypothyroidism, asthma, chronic diastolic CHF, diverticulitis, AARON on CPAP, and CKD stage III who presents to the ER with acute onset of right lower quadrant pain that started at 8:00 last night. Reports going to his primary care provider yesterday for a flareup of gout in his right ankle. He had taken 2 doses of his methylprednisolone before the onset of his abdominal pain. He tried taking a laxative but the pain remained severe at a 10 out of 10 in the right lower quadrant. It was nonradiating, worse with sitting upright. He denied nausea or vomiting. He had a small bowel movement this morning that was nonbloody and no melena. He came to the hospital via EMS where he was found to have a right sided sigmoid diverticulitis with perforation with pneumoperitoneum on CT scan of the abdomen/pelvis. His blood sugar was also found to be greater than 400 and he was febrile. At the time I saw him, he had received IV Dilaudid, 1 dose of IV Zosyn, and 500 mL's of normal saline. He was already feeling much improved and reported his abdominal pain was down to a 2/10 in severity. I discussed the case with the ER physician in the general surgeon on-call at the time of admission. He will be admitted for sigmoid diverticulitis with bowel perforation Admission Exam Per Admitting Provider Constitutional: WD/WN, vitals as above (Resting but wakes up easily and answers questions appropriately) Eyes: PERRL, conjunctivae normal, anicteric sclerae ENMT: Ears: no hearing impairment and no external ear abnormality Nose: + external nose abnormality (Bulbous nose) and + dry nasal mucous membranes Mouth: + oral mucosal abnormality (Very dry) Neck: trachea midline, no thyromegaly Respiratory: normal respiratory effort, lungs clear to auscultation Cardiovascular: RRR, no murmur, no edema Gastrointestinal (Abdomen): Inspection/Auscultation: abdomen normal to inspection, + abdomen distended (Mild) and + hypoactive bowel sounds Percussion/Palpation: + abdomen tender (Diffusely tender right lower quadrant greater than left lower quadrant, softer on the left) and + guarding (In the right lower quadrant); abdomen not rigid and no hernia Musculoskeletal: Extremities: + extremities abnormal to inspection (Mild erythema and tenderness to palpation of the right lateral ankle with full range of motion of ankle), no cyanosis and no clubbing Skin: + erythema (Rosacea of the cheeks and nose) Neurologic: moves all extremities and awake; no focal motor deficits Psychiatric: A+Ox3, euthymic affect Principal Diagnosis Right sided diverticulitis with perforation Discharge Exam Constitutional WD/WN, vitals as above + obese; no acute distress Eyes PERRL, conjunctivae normal, anicteric sclerae ENMT external ear and nose normal, oropharynx normal Neck trachea midline, no thyromegaly Respiratory normal respiratory effort, lungs clear to auscultation Cardiovascular Rate/Rhythm: regular rate and regular rhythm Heart Sounds: normal S1 and normal S2; no murmur Vessels: no JVD Extremities: normal capillary refill; no edema Gastrointestinal (Abdomen) Inspection/Auscultation: abdomen normal to inspection and normal bowel sounds Percussion/Palpation: abdomen soft and normal to percussion; abdomen nontender, no guarding, abdomen not rigid and no hernia Musculoskeletal no cyanosis or clubbing, extremities motor strength 5/5 Skin no rashes, warm and dry Neurologic patellar DTR's 2+ bilat, sensation intact and PERRL, EOMI, accommodation nl, no face palsy, no dysarthria Psychiatric A+Ox3, euthymic affect Lymphatic no cervical or axillary lymphadenopathy Discharge Data Allergies Allergy/AdvReac Type Severity Reaction Status Date / Time furosemide [From Lasix] AdvReac Rash Verified 07/20/18 04:19 Consultations 07/20/18 06:28 ED Decision to Admit Stat 07/20/18 09:46 Consult Case Management - Discharge Planning Routine Consult General Surgery Routine 07/22/18 09:34 Consult Nephrology Routine 07/24/18 12:51 Consult Case Management - Discharge Planning Routine Ordered Studies 07/20/18 03:58 CT abd pelvis wo con Urgent Hospital Course (1) Diverticulitis of colon with perforation: Patient with right-sided sigmoid diverticulitis with perforation with pneumoperitoneum evident on CT scan. Presented with diffuse tenderness of the abdomen right greater than left with guarding on the right. Was initially febrile but resolved as soon as antibiotics were started WBC normal for days, lactate normal within 24 hours of admission, no evidence of sepsis Is significantly improved since admission, continues with very minimal pain in RLQ, abdomen soft Has had multiple bowel movements and is tolerating low fiber Initial blood cultures with 2 out of 2 sets of Clostridium ramosum His repeat blood cultures show no growth to date -treated with IV Zosyn convert to Augmentin 500/125 mg p.o. twice daily to complete a 2-week course at the time of discharge renally dosed Augmentin -Appreciate general surgery consultation-no surgical intervention needed at this time, but could have elective colectomy in the future -will need outpatient colonoscopy in 6 weeks after resolution will follow up with Dr. Ramirez in 2 weeks follow low fiber diet for 2-4 weeks of note, he had a prior colonoscopy with Dr. Morales so he could be referred to [facility] for the endoscopy (2) Acute kidney injury superimposed on CKD: Cr ne to 3.2, trended downward with treatment of infection and IV fluids, but now with trend back slightly upward to 2.92 He did receive 1 dose of p.o. Bumex on 07/23-his I/Os are not adequately recorded and there are multiple episodes of unmeasured voids documented Cr stable between 2.8 and 3.1 the past few days, but still up from baseline, likely represents ATN he reports he is making a lot of urine, examines euvolemic received dose of Bumex on 07/23 for some signs of volume overload, no further diuretics needed nephrology okay for discharge recommends repeat BMP in two days, script provided, Dr. Hopkins cc on labs will follow up with nephrology in 1-2 weeks continue to hold Bumex as he is euvolemic, instructed him to watch for edema (3) Hyperkalemia: resolved (4) Atrial fibrillation: Paroxysmal atrial fibrillation and flutter-follows with cardiology Was in normal sinus rhythm throughout his stay but then converted to atrial flutter with 2-1 block with rates in the 90s on 07/22 -continue Amiodarone, in a sinus rhythm with normal rates -continue metoprolol 25 mg p.o. twice daily for rate control -Discontinue heparin drip and start Lovenox 1 danny per cake every 24 hours which is renal dosing of therapeutic Lovenox for bridging resumed Coumadin at 6mg a day check INR in two days with results to PCP patient refuses to use Lovenox at home safe at this time as he is in normal sinus rhythm and he takes amiodarone to maintain NSR (5) Diabetes mellitus, type 2: With severe hyperglycemia here at 479 upon admission, no evidence of acidosis other than mildly elevated beta hydroxybutyric acid. Hyperglycemia likely secondary to stress of illness plus recent dosing of methylprednisolone HgbA1C 8.6%, uncontrolled treated with Lantus 15 units AM and 5 units HS with Novolog SS was averaging between 8-12 units of Novolog with meals discussed using Lantus and Novolog at home, he considered it but said he would not be compliant will stop Metformin due to renal function, likely never go back on Metformin renally dose Januvia to 25mg and renally dose Glipizide to 5mg daily instructed him to follow low carb diet discussed that insulin would be ideal but renally dosing these medications is better than nothing follow up with PCP could go back to original doses once renal function recovers (6) Asthma: Stable, no acute issues -Continue home Advair, albuterol nebs as needed (7) Sleep apnea: Continue home CPAP 14 cm H2O (8) Hypertension: Blood pressures elevated despite metoprolol Norvasc 5mg daily added follow up with PCP for BP check (9) Hypothyroidism: TSH mildly elevated recently as an outpatient was advised to increase levothyroxine 88 mcg -Treated initially with IV levothyroxine and now transition back to home dose of levothyroxine 88 mcg p.o. once daily -Follow thyroid function tests in 4 to 6 weeks as an outpatient given recent increase in dose (10) Gout: With acute flare of the right ankle-treated with methylprednisolone x2 doses prior to admission-some pain remains today in the right lateral ankle -Hold off on further steroids at this time as may have contributed to friability of the bowel -Would not treat with NSAIDs or colchicine given renal failure -Observe for worsening -Unfortunately, not much to do at this point, could try topical Voltaren gel-if very severe pain, could consider consulting orthopedics for localized steroid injection requiring a rolling walker to ambulate (11) CKD (chronic kidney disease) stage 3, GFR 30-59 ml/min: Baseline creatinine around 2.0, GFR just above 30. Creatinine upon a dmission is 2.0 and then up to 3.20 now ranging between 2.8 and 3.1 He has no evidence of urinary obstruction on recent CT imaging. -Consult nephrology-appreciate consultation -Avoid nephrotoxins -Renally dose medications when appropriate (12) Chronic diastolic CHF (congestive heart failure): Long history of such and also with previous history of systolic dysfunction secondary to tachyarrhythmia induced cardiomyopathy which is now resolved He was volume down/dehydrated at the time of admission, now improved Have since discontinued IV fluids Received 1 dose of Bumex 1mg PO on 07/23 and seems to have helped although I's and O's not accurately recorded -Continue Daily weights, I's and O's (13) Thrombocytopenia: chronic issue, stable today at 103k (14) Hypoxia: likely a combination of slight volume overload and atelectasis resolved after a single dose of Bumex (15) DVT prophylaxis: Coumadin Disposition- home, refused services Full code Patient reports that if he were in a vegetative-like state requiring life support, he would not want to live that way if there was no hope for recovery He designates his older brother Bang Johnson as his healthcare spokesperson if needed Total Time Total Time Spent Total Time Spent (In Minutes): 45 minutes Total Time Includes: Examination of the Patient, Discharge Planning and Medication Reconciliation Discharge Plan Discharge Items Patient Disposition: Home - Self-Care Reason For Visit: PERFORATED DIVERTICULITIS Discharge Diagnosis: Right sided diverticulitis Atrial fibrillation Acute kidney injury on chronic kidney disease DM type II Condition: Good Discharge Goals: Decrease discomfort, Diagnostic testing and Improve disease control Specific Goals: need to get lab work in two days Activity: Resume your previous activity Non-emergency contact: Primary Care Provider, [employer] Director Call non-emergency contact if: you have any medication questions, your symptoms worsen, your pain is not controlled and you have a fever Follow-up/Referrals: Jf Taylor III, MD [Primary Care Provider] - Shadi Ramirez MD [Physician] - None (Please follow-up in 2-4 weeks to schedule colonoscopy and follow-up of your diverticulitis. ) Diet: Carb Consistent or DM2 and Heart Healthy Other Ambulatory Orders: Basic Metabolic Panel (Routine) Timeframe: 2 Days Location: Determined by Patient Ordered By: Alcides Petersen Prothrombin Time INR (Routine) Timeframe: 2 Days Location: Determined by Patient Ordered By: Alcides Petersen Addtl Provider Instructions: Medications: - AUGMENTIN: take twice a day for the next 9 days to complete treatment of the diverticulitis on the right side - GLIPIZIDE: dose DECREASED to 5mg daily due to renal function - JANUVIA: dose DECREASED to 25mg daily due to renal function - METFORMIN: this medication has been STOPPED, likely will not resume in the future due to renal function - NORVASC: new medication for better blood pressure control, safe to use with your renal function, take once daily - BUMEX: continue to HOLD this medication until you are instructed to resume by Dr. Hopkins Right sided diverticulitis continue Augmentin for 9 more days, you have been fever free, normal WBC and minimal pain you needed to follow up with Dr. Ramirez, general surgeon, see below for his office number, would like to see you in two weeks continue a low fiber diet for two-four weeks DM type II please note the changes in dosing of Januvia and Glipizide above, please note that you should now stop Metformin please follow a low carbohydrate diet Acute kidney injury on chronic kidney disease you will need to get follow up lab work on 07/[address] Hopkins continue to hold Bumex until told to resume by Dr. Hopkins or one of his associates your Cr is 2.8 today, typical number for you is closer to 2.0 FOLLOW UP - Dr. Taylor in one week, call for appt - Dr. Hopkins in 1-2 weeks, call for appt, - Dr. Ramirez in 2 weeks, see below Surgical discharge instructions: - Recommend low fiber diet for next 2-4 weeks - Continue course of antibiotics as prescribed - You will need colonoscopy in 6 weeks to evaluate your colon and extent of your diverticulosis and to ensure there is nothing underlying (i.e. a mass) that caused this episode of diverticulitis. - Follow-up with Dr. Ramirez in 2 weeks to schedule colonoscopy and to further discuss elective colon resection vs watchful waiting. - Please call office at [phone] to make an appointment Prescriptions: New amlodipine [Norvasc] 5 mg Tablet 5 mg PO QAM Qty: 30 RF: 1 glipizide 5 mg tablet 5 mg PO DAILY Qty: 30 RF: 1 Januvia 25 mg tablet 25 mg PO DAILY Qty: 30 RF: 1 amoxicillin-pot clavulanate [Augmentin] 500-125 mg tablet 1 tab PO BID Qty: 18 RF: 0 Continued OneTouch Ultra Blue Test Strip strip .ROUTE .MEDSUPPLY Qty: 10 RF: 0 levothyroxine 88 mcg tablet 88 mcg PO QAM RF: 0 amiodarone 200 mg Tablet 200 mg PO QAM RF: 0 warfarin 6 mg Tablet 6 mg PO QPM RF: 0 fluticasone propion-salmeterol [Advair Diskus] 500-50 mcg/dose Blister With Device 1 inh INHALATION BID RF: 0 metoprolol tartrate 50 mg Tablet 25 mg PO BID RF: 0 magnesium oxide 400 mg magnesium Tablet 800 mg PO BID RF: 0 Discontinued glipizide 10 mg tablet 10 mg PO BID Qty: 60 RF: 2 Golytely 227.1-21.5-6.36 gram powder in packet 240 ml PO Q10M Qty: 1 RF: 0 methylprednisolone 4 mg tablet 4 mg PO .COMPLEX Qty: 15 RF: 0 metformin 500 mg tablet 500 mg PO BID RF: 0 bumetanide 1 mg Tablet 1 mg PO QPM RF: 0 Januvia 100 mg Tablet 100 mg PO QDL RF: 0 Stand-Alone Forms: Call Back Authorization, [facility]/Other Patient Handouts: Hyperglycemia, Hypoglycemia, Diabetes Type 2 Coping, Diabetes Meal Planning Discharge Orders: Discharge Order (Routine); Ordered 07/26/18 Ordered By: Alcides Petersen Admission Data Admit Date/Time: 07/20/18 08:02 Attending Provider: Alcides Petersen Admit Provider: Doris Holly Primary Care Provider: Jf Taylor III Other Providers: Vikki Madsen ; Laly Walker ; Guillermo Hopkins Service: Medical Other Interventions: Discharge Summary Assessment (RN) Last Done: 07/26/18 13:50 DC Date/Time DO NOT enter until pt leaves facility: 07/26/18 14:45
== END 2018-07-26 14:45 | disposition home or self-care (01) | DRG 392 ==
LOC: ED 03:42 → SUATTDRO 08:02 → 2S 08:02 → 2E 07-21 22:33 → 2W 07-23 13:44

== ENCOUNTER 2018-10-25 19:18 | Inpatient (IN) ==
[2018-10-25 19:53] LABS: Basophils # (auto) 0.03 K/uL (0-0.2); Basophils % (auto) 0.5 %; Eosinophils # (auto) 0.09 K/uL (0-0.5); Eosinophils % (auto) 1.4 %; Hematocrit (blood only) 36.5 % (42-52); Hemoglobin 11.7 g/dL (14.0-18.0); Immature Granulocytes # (auto) 0.11 K/uL (0.00-0.02); Immature Granulocytes % (auto) 1.7 %; Lymphocytes # (auto) 0.73 K/uL (1.2-3.4); Lymphocytes % (auto) 11.3 %; Mean Corpuscular Hgb Conc 32.1 g/dL (32-36); Mean Corpuscular Volume 87.5 fL (80-100); Mean Platelet Volume 9.7 fL (7.4-10.4); Monocytes # (auto) 0.56 K/uL (0.11-0.59); Monocytes % (auto) 8.7 %; Neutrophils # (auto) 4.93 K/uL (1.4-6.5); Neutrophils % (auto) 76.4 %; Platelet Count 201 K/uL (130-400); RDW Coefficient of Variation 14.9 % (11.5-14.5); RDW Standard Deviation 47.8 fL (36.4-46.3); Red Blood Count 4.17 M/uL (4.7-6.1); White Blood Count 6.45 K/uL (4.8-10.8)
[2018-10-25 19:59] LABS: iSTAT Creatinine 2.3 mg/dl (0.6-1.3); iSTAT Hemoglobin 11.9 g/dl (14.0-18.0); iSTAT Ionized Calcium 1.22 mmol/l (1.12-1.32); iSTAT Potassium 6.2 mEq/L (3.3-5.0)
[2018-10-25 20:02] LABS: INR 2.9 (0.9-1.1); Prothrombin Time 27.7 Seconds (9.0-12.0)
[2018-10-25 20:18] LABS: Appearance Urine Cloudy (Clear); Bacteria Urine Automated Negative (Negative); Blood Urine Negative (Negative); Color Urine Dark Yellow; Epithelial Cell Urine Auto >30 /lpf (0-5); Glucose Urine UA Negative (Negative); Ketones Urine Trace (Negative); Leukocyte Esterase Urine Negative (Negative); Nitrite Urine Negative (Negative); Protein Urine 2+ (Negative); RBC Urine Automated 0-4 /hpf (0-4); Specific Gravity Urine 1.022 (1.000-1.030); Urobilinogen Urine Negative (Negative)
[2018-10-25 20:19] LABS: Albumin Level 3.5 gm/dl (3.4-5.0); Calcium 8.7 mg/dl (8.5-10.1); Creatinine Clr Calc Pharmacy 38.7 ml/min; Est GFR (African American) 34.6; Est GFR (Non-African American) 29.8; Potassium 6.1 mmol/L (3.5-5.1)
[2018-10-25 20:22] LABS: Bilirubin Urine Negative (Negative); Ictotest Urine Negative (Negative)
[2018-10-25 20:27] LABS: Cast Urine Automated >30 /lpf (0-5)
[2018-10-25] MEDS ORDERED: NovoLIN-R INSULIN PER UNIT CHARGE IV STA (20:51)
[2018-10-25] MEDS ORDERED: SODIUM BICARB 8.4% INJ 50 MEQ/50 ML SYR IV STA (20:51)
[2018-10-25] MEDS ORDERED: DEXTROSE 50% 50 ML SYRINGE IV ONE (20:51)
[2018-10-25] MEDS ORDERED: CALCIUM GLUCONATE 10% 1,000 MG in SODIUM CHLORIDE 0.9% 50 ML IV STA (20:51)
[2018-10-25 20:54] LABS: Albumin Globulin Ratio 0.9 (0.9-2); Bilirubin,Total 0.3 mg/dl (0.2-1); Globulin 3.9 gm/dl (2.5-4.0); Total Protein 7.4 gm/dl (6.4-8.2)
[2018-10-25] MEDS ORDERED: SODIUM CHLORIDE 0.9% 1000ML 1,000 ML IV STA (20:54)
[2018-10-25] MEDS ORDERED: CALCIUM GLUCONATE 10% 10 ML VIAL IV ONE (21:09)
--- NOTE | 2018-10-25 21:21 | History & Physical Report ---
Date of Service October 25, 2018 Assessment & Plan (1) Hyperkalemia: is a 63-year-old gentleman with a history of type 2 diabetes mellitus, paroxysmal atrial fibrillation, gout, hypothyroidism, asthma, diastolic CHF, diverticulitis s/p recent bowel resection, CKD stage III, obst ructive sleep apnea who presents to [facility] due to an outpatient potassium level of 6.7. ED course: 10 units IV regular insulin, with 25 mL of 50% dextrose, 50 mEq of sodium bicarb, 1 g calcium gluconate, 1 L normal saline at 125 mLs/hour Hyperkalemia -Admit to med/surg with telemetry monitoring -Potassium level 6.2 upon presentation to the emergency department - received treatment for this as above -EKG without changes related to hyperkalemia -Repeat BMP tomorrow -Per review of outpatient records, his recent hospitalization in [place] for bowel resection was complicated by GAYATRI. His elevated potassium was treated with Kayexalate, and his home Bumex and lisinopril were discontinued per nephrology's recommendations -Regarding the cause of his recurrent hyperkalemia - medications reviewed, none of which would cause hyperkalemia. He has a history of the same in the past, likely just related to his CKD CKD stage III -Baseline creatinine appears to be 2, creatinine on admission 2.2 -NS x 1 bag given Anemia -b/l appears to be 13.5 -> Hgb today is slightly lower at 11.7 -may be lower due to recent surgery -no signs/symptoms of bleeding -recheck CBC prior to d/c to ensure it remains stable Hx of Diverticulitis -s/p drain placement and bowel resection due to diverticulitis w/abscess -recovering well Asthma -Stable, no acute issues -Continue home Advair Chronic diastolic CHF/hypertension/hypercholesterolemia -Continue home amlodipine -pt appears euvolemic -Does not appear to be on a cholesterol-lowering agent Hypothyroidism -Continue home Synthroid -TSH 2.85 Paroxysmal atrial flutter -Continue home amiodarone and metoprolol -Continue home warfarin, INR therapeutic at 2.9 Type 2 Diabetes Mellitus -Hold home glipizide, metformin and Januvia -BSG checks ACHS, placed on insulin sliding scale -monitor glucose levels given recent administration of IV insulin in ED -Most recent HbA1c 9.8% Obstructive Sleep Apnea -CPAP ordered nightly CODE STATUS: Full DVT prophylaxis: Therapeutic on warfarin Disposition: Admit to med/surg with telemetry monitoring. Anticipate discharge tomorrow (2) Diverticulitis of colon: (3) CKD (chronic kidney disease), stage III: (4) Chronic diastolic (congestive) heart failure: (5) Chronic low back pain: (6) Hypertension: (7) Hypothyroidism: (8) Paroxysmal atrial flutter: (9) Diabetes mellitus type 2, uncontrolled: (10) Hypercholesterolemia: (11) Obstructive sleep apnea: History of Present Illness Chief Complaint: Hyperkalemia Primary Care Provider: Jf Taylor MD is a 63-year-old gentleman with a history of type 2 diabetes mellitus, paroxysmal atrial fibrillation, gout, hypothyroidism, asthma, diastolic CHF, diverticulitis s/p recent bowel resection, CKD stage III, obstructive sleep apnea who presents to [facility] due to an outpatient potassium level of 6.7. The patient states that he had a bowel resection for diverticulitis at the end of September in [place], and postoperatively was found to have hyperkalemia. He saw his primary care provider today as a hospital follow-up, who ordered routine labs to recheck his potassium level. Mr. Johnson was then instructed to come to the hospital due to a potassium level of 6.7. He is unsure of why his potassium level is so high. He states his only recent medication change was a switch from glimepiride to glipizide. He reports that he has only had high potassium levels this last month, and has not had problems with this in the past. He states he feels well. He reports that his incision sites are healing well, and is not taking any pain medication for this. He denies any fever, chills, nausea, vomiting, diarrhea. Past medical history: Type 2 diabetes mellitus, paroxysmal atrial fibrillation, gout, hypothyroidism, asthma, diastolic CHF, diverticulitis s/p recent bowel resection, CKD stage III, obstructive sleep apnea Past surgical history: Bowel resection, for diverticulitis, cervical spinal fusion, lobectomy of lung Medications: Amiodarone, amlodipine, glipizide, levothyroxine, magnesium oxide, metformin, metoprolol, Januvia, tramadol, warfarin Allergies: Furosemide Social history: Prior smoker, quit 40 years ago. Smoked a pack a day for 10 years. Occasional alcohol use, no recreational drug use Allergies Allergy/AdvReac Type Severity Reaction Status Date / Time furosemide [From Lasix] AdvReac Rash Verified 10/25/18 21:26 Home Medications Home Medications Medication Instructions Recorded Confirmed Type amlodipine 5 mg PO QAM 08/08/18 10/25/18 History magnesium 400 mg (as magnesium 800 mg PO BID #120 tab 08/08/18 10/25/18 Rx oxide) tablet metoprolol tartrate 50 mg tablet 25 mg PO BID #90 tab 08/08/18 10/25/18 Rx sitagliptin [Januvia] 25 mg PO DAILY 08/08/18 10/25/18 History warfarin 6 mg PO QAM 08/08/18 10/25/18 History levothyroxine 75 mcg tablet 75 mcg PO QAM 08/23/18 10/25/18 History amiodarone 200 mg PO QAM 10/25/18 10/25/18 History fluticasone propion-salmeterol 1 inh INHALATION BID PRN 10/25/18 10/25/18 History [Advair Diskus] glipizide 10 mg PO BID 10/25/18 10/25/18 History metformin 500 mg PO BID 10/25/18 10/25/18 History tramadol 50 mg PO Q6H PRN 10/25/18 10/25/18 History Past Med/Surg History Medical History On home oxygen therapy 6L @ night with CPAP Osteoarthritis Anticoagulant long-term use (Chronic) Asthma (Chronic) CKD (chronic kidney disease), stage III (Chronic) Chronic diastolic (congestive) heart failure (Chronic) Chronic low back pain (Chronic) Edema (Chronic) Hearing loss, bilateral (Chronic) Hypertension (Chronic) Hypothyroidism (Chronic) Sleep related hypoxia (Chronic) Paroxysmal atrial flutter (Chronic) Obstructive sleep apnea (Chronic) Hypercholesterolemia (Chronic) Diabetic peripheral neuropathy (Chronic) Diabetes mellitus with albuminuria (Chronic) Diabetes mellitus type 2, uncontrolled (Chronic) Thrombocytopenia (Chronic) GAYATRI (acute kidney injury) (Resolved) Acute kidney injury superimposed on CKD (Resolved) UO Bacteremia (Resolved) Diverticulitis of colon with perforation (Resolved) Hyperkalemia (Resolved) Hypoxia (Resolved) New onset atrial flutter (Resolved) Asthma inhaler daily Atrial fibrillation follows with Dr. 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" History of strabismus surgery bilt History of surgery penile implant History of tooth extraction wisdom teeth Status post cervical spinal fusion normal ROM Family History Father Family history of diabetes mellitus Sister Family history of diabetes mellitus Brother Family history of diabetes mellitus Mother Cancer Stomach cancer Hypertension Grandmother Myocardial infarction Hypertension Social History Preferred Language: Israeli Communication Ability: Effective Supervisor Pipelines Required: No Beliefs That Will Affect Care: None marital status: Current Living Situation: Alone current occupational status: employed current occupation: Works at [employer] Other Information That Helps Us Care for You: No Feels Safe at Home: Yes Safety Concerns: Feels Safe At This Time Smoking Status: Former smoker Tobacco Type: smokeless tobacco ; packs per day: 1 ; Do You Dip or Chew Tobacco: Yes ; Second Hand Exposure: No ; Hx Alcohol Use: Yes Alcohol type: beer Alcohol Intake Frequency: Weekly Hx Substance Use: No Review of Systems Constitutional: no fever, no chills, no fatigue and no anorexia Respiratory: no cough and no dyspnea Cardiovascular: no chest pain, no palpitations, no syncope, no edema and no calf pain Gastrointestinal: no abdominal pain, no nausea, no vomiting and no change in bowel habits Genitourinary: no dysuria and no urinary frequency Integumentary: no rash Physical Exam Constitutional: WD/WN, vitals as above cooperative and comfortable Eyes: PERRL, conjunctivae normal, anicteric sclerae ENMT: external ear and nose normal, oropharynx normal Respiratory: normal respiratory effort, lungs clear to auscultation Cardiovascular: RRR, no murmur, no edema Gastrointestinal (Abdomen): normal bowel sounds, soft, nontender, no hepatosplenomegaly Percussion/Palpation: + abdomen tender (Mildly tender over the right-sided abdomen, over incision site) and abdomen soft; no guarding and abdomen not rigid Well-healing incisions from prior laparoscopic surgery Skin: no rashes, warm and dry Results & Data Vital Signs (Past 12 Hours) Vital Signs Temp Pulse Resp BP Pulse Ox 10/25/18 20:03 97 10/25/18 19:21 36.7 C 64 16 148/76 H 95 Code Status & VTE Plan VTE Prophylaxis Plan VTE Prophylaxis will be ordered: No Supervising Physician Co-Signing Physician Notes Patient was seen and examined by me personally. I reviewed the chart, the orders and discussed the case in detail with Dr. Slick Aguilera MD . I read this H&P and agree with its contents to entirety. PG Care Time/CCT Total # of Minutes Spent Total Time Spent with Patient: Total time spent is greater than 50% in coordination of care (as documented) at patient's floor/unit and/or counseling patient: Resident Activity Tracking Resident Involvement: Resident Care Provided Care Provided: Adult Hospital Medicine
[2018-10-25] MEDS ORDERED: GLUCOSE 40% GEL 15 GM TUBE PO PRN (22:25)
[2018-10-25] MEDS ORDERED: GLUCAGON FOR INJ 1 MG VIAL SQ PRN (22:25)
[2018-10-25] MEDS ORDERED: GLUCOSE 10 TABS/TUBE PO PRN (22:25)
[2018-10-25] MEDS ORDERED: TRAMADOL HCL 50 MG TABLET PO PRN (22:25)
[2018-10-25] MEDS ORDERED: ACETAMINOPHEN 325 MG TAB PO PRN (22:25)
[2018-10-25] MEDS ORDERED: CARBOHYDRATES FOR HYPOGLYCEMIA PO PRN (22:25)
[2018-10-25] MEDS ORDERED: DEXTROSE 50% 50 ML SYRINGE IV PRN (22:25)
[2018-10-25] MEDS ORDERED: FLUTICASONE/SALMETEROL (ADVAIR) 500/50 INH 14 PUFF INH PRN (22:25)
--- NOTE | 2018-10-25 22:49 | Emergency Department Note ---
Entered by Caroyln Cannon acting as a scribe for ED Provider Note CHIEF COMPLAINT: Abnormal Labs HISTORY OF PRESENT ILLNESS: The patient is a 63 year old male who presents to the Emergency Room with complaints of abnormal lab results. He recently had blood work drawn and states Dr. Brasher called him and told him to come to the ED. Outpatient blood work showed a Potassium of 6.7 and a Creatinine of 2.01. He denies any recent colds or illnesses and states he feels well. He did have abdominal surgery for diverticulitis in late September and has been healing well. He is still making urine. Patient took no medication for this potassium problem. Pt denies LOC, headache, fevers, chills, diaphoresis, visual changes, neck pain, chest pain, breathing difficulties, nausea, vomiting, abdominal pain, back pain, melena, hematochezia, urinary symptoms, numbness, weakness, lymphadenopathy, rash, or other complaints. REVIEW OF SYSTEMS: See HPI for pertinent positives and negatives. A total of ten systems were reviewed and were otherwise negative. PMHx/PSHx: DM. Asthma. CKD. CHF. HTN. SOCIAL HISTORY: Patient lives at home. PHYSICAL EXAM: GENERAL: Awake, alert, well-appearing, in no distress HENT: Normocephalic, atraumatic. Oropharynx unremarkable. EYES: PERRL. Normal conjunctiva. Sclera non-icteric. NECK: Inspection normal. Non-tender. Supple. No nuchal rigidity. FROM. No masses. RESPIRATORY: Clear to auscultation. No wheezes. No rales. Normal respiratory effort. CARDIAC: Normal rate. Normal rhythm. No murmurs. No rubs. Extremities warm and well perfused. Pulses equal. No JVD. GI: Soft, non-distended. Mild LLQ tenderness. Midline surgical incision below the umbilicus is clean, dry and intact, no redness. Trocar sites are clean, dry and intact. No rebound or guarding. No masses. RECTAL: Deferred. MUSCULOSKELETAL: Atraumatic. Chest examination reveals no tenderness. The back is symmetrical on inspection without obvious abnormality. There is no CVA tenderness to palpation. No joint edema. LOWER EXTREMITIES: Calves are equal size bilaterally and non-tender. Chronic venous discoloration of LE, 1+edema. NEURO: Normal sensorium. No sensory or motor deficits noted. SKIN: No rash or jaundice noted. EMERGENCY DEPARTMENT COURSE: 1935: Past medical records reviewed. The patient was evaluated in room C8, and a complete history and physical examination were performed. 2054: I reevaluated the patient. He is resting comfortably. I discussed my recommendation he remain in the hospital for further evaluation and management and he verbalized complete understanding and agreement. 2056: I discussed the patients case with Dr. Garces, [facility] Hospitalist. The patient will be further evaluated. MEDICAL DECISION MAKING: Prior records/ancillary studies reviewed. Summarized in history. Nursing notes reviewed and agree them. Additional history obtained from family. The patient's history was concerning for weakness. Differential diagnosis: Etiologies such as metabolic, infection, hypo/hyperglycemia, electrolyte abnormalities, cardiac sources, intracerebral event, toxicologic, neurologic, as well as others were entertained. Physical examination: As above. ER treatment provided: IV Lock IV insulin IV dextrose IV normal saline IV calcium IV bicarbonate On reassessment the patient felt better. Diagnostics interpretation by me: ECG: Sinus without dysrhythmia The labs revealed an unremarkable CBC. Chemistry panel revealed hyperkalemia and renal insufficiency with a creatinine of 2.23. Mild hyperglycemia noted. Imaging studies: Deferred The patient has renal insufficiency and hyperkalemia. He will need to be brought into the hospital and treated to prevent any severe complications from hyperkalemia. Consultation: A consultation was placed with the hospitalist. The case was discussed and diagnostics were reviewed. The patient was evaluated in the ER for further treatment. IMPRESSION: Hyperkalemia Renal insufficiency Hyperglycemia PLAN: Further evaluation by hospitalist The scribe's documentation has been prepared under my direction and personally reviewed by me in its entirety. I confirm that the note above accurately reflects all work, treatment, procedures, and medical decision making performed by me. Impression & Plan Hyperkalemia Past Med/Surg History Medical History On home oxygen therapy 6L @ night with CPAP Osteoarthritis Anticoagulant long-term use (Chronic) Asthma (Chronic) CKD (chronic kidney disease), stage III (Chronic) Chronic diastolic (congestive) heart failure (Chronic) Chronic low back pain (Chronic) Edema (Chronic) Hearing loss, bilateral (Chronic) Hypertension (Chronic) Hypothyroidism (Chronic) Sleep related hypoxia (Chronic) Paroxysmal atrial flutter (Chronic) Obstructive sleep apnea (Chronic) Hypercholesterolemia (Chronic) Diabetic peripheral neuropathy (Chronic) Diabetes mellitus with albuminuria (Chronic) Diabetes mellitus type 2, uncontrolled (Chronic) Thrombocytopenia (Chronic) GAYATRI (acute kidney injury) (Resolved) Acute kidney injury superimposed on CKD (Resolved) UO Bacteremia (Resolved) Diverticulitis of colon with perforation (Resolved) Hyperkalemia (Resolved) Hypoxia (Resolved) New onset atrial flutter (Resolved) Asthma inhaler daily Atrial fibrillation follows with Dr. 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" History of strabismus surgery bilt History of surgery penile implant History of tooth extraction wisdom teeth Status post cervical spinal fusion normal ROM Family History Father Family history of diabetes mellitus Sister Family history of diabetes mellitus Brother Family history of diabetes mellitus Mother Cancer Stomach cancer Hypertension Grandmother Myocardial infarction Hypertension Social History Preferred Language: Singaporean Communication Ability: Effective 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 Beliefs That Will Affect Care: None marital status: Current Living Situation: Alone current occupational status: employed current occupation: Works at [employer] Other Information That Helps Us Care for You: No Feels Safe at Home: Yes Safety Concerns: Feels Safe At This Time Smoking Status: Former smoker Tobacco Type: smokeless tobacco ; packs per day: 1 ; Do You Dip or Chew Tobacco: Yes ; Second Hand Exposure: No ; Hx Alcohol Use: Yes Alcohol type: beer Alcohol Intake Frequency: Weekly Hx Substance Use: No Results & Data Vital Signs Vital Signs - 24 hr 10/25/18 19:21 10/25/18 20:03 10/25/18 20:26 Temperature 36.7 C Temperature Source Oral Sepsis Recent Fever Within 48 Hours No Sepsis Action Taken by Nursing No Action Required Pulse Rate 64 59 L Pulse Rate from SpO2 Sensor 58 L Respiratory Rate 16 16 Respiratory Effort / Characteristics Non-Labored Spontaneous Respiratory Depth Normal Respiratory Pattern Regular Blood Pressure 148/76 H Blood Pressure Mean 100 Blood Pressure Position Sitting Pulse Oximetry 95 97 97 Oxygen Delivery Method Room Air Room Air 10/25/18 20:30 10/25/18 21:00 Temperature Temperature Source Sepsis Recent Fever Within 48 Hours Sepsis Action Taken by Nursing Pulse Rate 58 L 58 L Pulse Rate from SpO2 Sensor 58 L 58 L Respiratory Rate 15 21 Respiratory Effort / Characteristics Respiratory Depth Respiratory Pattern Blood Pressure Blood Pressure Mean Blood Pressure Position Pulse Oximetry 97 97 Oxygen Delivery Method Home Medications Current Medication List: was personally reviewed by me Laboratory Data Attestation: I reviewed the patient's lab results. Result diagrams: 10/25/18 19:40 10/25/18 19:40 Lab Results 10/25/18 10/25/18 10/25/18 Range/Units 19:40 19:40 19:40 WBC 6.45 (4.8-10.8) K/uL RBC 4.17 L (4.7-6.1) M/uL Hgb 11.7 L (14.0-18.0) g/dL POC Hgb (14.0-18.0) g/dl Hct 36.5 L (42-52) % POC Hct (42-52) % MCV 87.5 (80-100) fL MCH 28.1 (25-34) pg MCHC 32.1 (32-36) g/dL RDW Std Deviation 47.8 H (36.4-46.3) fL RDW Coeff of Guy 14.9 H (11.5-14.5) % Plt Count 201 (130-400) K/uL MPV 9.7 (7.4-10.4) fL Immature Gran % (Auto) 1.7 % Neut % (Auto) 76.4 % Lymph % (Auto) 11.3 % [place] % (Auto) 8.7 % Eos % (Auto) 1.4 % Baso % (Auto) 0.5 % Immature Gran # (Auto) 0.11 H (0.00-0.02) K/uL Neut # (Auto) 4.93 (1.4-6.5) K/uL Lymph # (Auto) 0.73 L (1.2-3.4) K/uL [place] # (Auto) 0.56 (0.11-0.59) K/uL Eos # (Auto) 0.09 (0-0.5) K/uL Baso # (Auto) 0.03 (0-0.2) K/uL PT 27.7 H (9.0-12.0) Seconds INR 2.9 H (0.9-1.1) POC Sodium (135-144) mEq/L Sodium 142 (136-145) mmol/L POC Potassium (3.3-5.0) mEq/L Potassium 6.1 H* (3.5-5.1) mmol/L POC Chloride (101-112) mEq/L Chloride 107 (98-107) mmol/L Carbon Dioxide 31 (21-32) mmol/L POC Total CO2 (24-31) mEq/l Anion Gap 4.0 (3-11) POC Anion Gap (16-25) mmol/L POC BUN (7-18) mg/dl BUN 34 H (7-18) mg/dl Creatinine 2.23 H (0.6-1.4) mg/dl POC Creatinine (0.6-1.3) mg/dl Est Cr Clr Drug Dosing 38.7 ml/min Est GFR ( Amer) 34.6 Est GFR (Non-Af Amer) 29.8 BUN/Creatinine Ratio 15.0 (10-20) Glucose 201 H (70-99) mg/dl POC Glucose (70-99) POC Glucose (other) (70-99) mg/dl Calcium 8.7 (8.5-10.1) mg/dl POC Ioniz Calcium Mariano (1.12-1.32) mmol/l Magnesium 2.0 (1.8-2.4) mg/dl Total Bilirubin 0.3 (0.2-1) mg/dl AST 8 L (15-37) U/L ALT 15 (12-78) U/L Alkaline Phosphatase 55 (45-117) U/L Total Protein 7.4 (6.4-8.2) gm/dl Albumin 3.5 (3.4-5.0) gm/dl Globulin 3.9 (2.5-4.0) gm/dl Albumin/Globulin Ratio 0.9 (0.9-2) TSH 2.850 (0.300-4.500) uIu/ml Urine Color Urine Appearance (Clear) Urine pH (4.5-7.5) Ur Specific [place] (1.000-1.030) Urine Protein (Negative) Urine Glucose (UA) (Negative) Urine Ketones (Negative) Urine Blood (Negative) Urine Nitrite (Negative) Urine Bilirubin (Negative) Urine Urobilinogen (Negative) Ur Leukocyte Esterase (Negative) Urine WBC (Auto) (0-5) /hpf Urine RBC (Auto) (0-4) /hpf U Hyaline Cast (Auto) (0-5) /lpf U Epithel Cells (Auto) (0-5) /lpf Urine Bacteria (Auto) (Negative) Ur Renal Epithelial Cell (0-5) /lpf Granular Casts (0) /lpf 10/25/18 10/25/18 10/25/18 Range/Units 19:47 20:00 21:21 WBC (4.8-10.8) K/uL RBC (4.7-6.1) M/uL Hgb (14.0-18.0) g/dL POC Hgb 11.9 L (14.0-18.0) g/dl Hct (42-52) % POC Hct 35 L (42-52) % MCV (80-100) fL MCH (25-34) pg MCHC (32-36) g/dL RDW Std Deviation (36.4-46.3) fL RDW Coeff of Guy (11.5-14.5) % Plt Count (130-400) K/uL MPV (7.4-10.4) fL Immature Gran % (Auto) % Neut % (Auto) % Lymph % (Auto) % [place] % (Auto) % Eos % (Auto) % Baso % (Auto) % Immature Gran # (Auto) (0.00-0.02) K/uL Neut # (Auto) (1.4-6.5) K/uL Lymph # (Auto) (1.2-3.4) K/uL [place] # (Auto) (0.11-0.59) K/uL Eos # (Auto) (0-0.5) K/uL Baso # (Auto) (0-0.2) K/uL PT (9.0-12.0) Seconds INR (0.9-1.1) POC Sodium 141 (135-144) mEq/L Sodium (136-145) mmol/L POC Potassium 6.2 H* (3.3-5.0) mEq/L Potassium (3.5-5.1) mmol/L POC Chloride 104 (101-112) mEq/L Chloride (98-107) mmol/L Carbon Dioxide (21-32) mmol/L POC Total CO2 26 (24-31) mEq/l Anion Gap (3-11) POC Anion Gap 19.0 (16-25) mmol/L POC BUN 36 H (7-18) mg/dl BUN (7-18) mg/dl Creatinine (0.6-1.4) mg/dl POC Creatinine 2.3 H (0.6-1.3) mg/dl Est Cr Clr Drug Dosing ml/min Est GFR ( Amer) Est GFR (Non-Af Amer) BUN/Creatinine Ratio (10-20) Glucose (70-99) mg/dl POC Glucose 168 H (70-99) POC Glucose (other) 208 H (70-99) mg/dl Calcium (8.5-10.1) mg/dl POC Ioniz Calcium Mariano 1.22 (1.12-1.32) mmol/l Magnesium (1.8-2.4) mg/dl Total Bilirubin (0.2-1) mg/dl AST (15-37) U/L ALT (12-78) U/L Alkaline Phosphatase (45-117) U/L Total Protein (6.4-8.2) gm/dl Albumin (3.4-5.0) gm/dl Globulin (2.5-4.0) gm/dl Albumin/Globulin Ratio (0.9-2) TSH (0.300-4.500) uIu/ml Urine Color Dark Yellow Urine Appearance Cloudy A (Clear) Urine pH 5.0 (4.5-7.5) Ur Specific [place] 1.022 (1.000-1.030) Urine Protein 2+ H (Negative) Urine Glucose (UA) Negative (Negative) Urine Ketones Trace H (Negative) Urine Blood Negative (Negative) Urine Nitrite Negative (Negative) Urine Bilirubin Negative (Negative) Urine Urobilinogen Negative (Negative) Ur Leukocyte Esterase Negative (Negative) Urine WBC (Auto) 1-5 (0-5) /hpf Urine RBC (Auto) 0-4 (0-4) /hpf U Hyaline Cast (Auto) >30 H (0-5) /lpf U Epithel Cells (Auto) >30 H (0-5) /lpf Urine Bacteria (Auto) Negative (Negative) Ur Renal Epithelial Cell 5-10 H (0-5) /lpf Granular Casts 1-5 H (0) /lpf Administered Medications Sodium Chloride (Nss 1000ml) 1,000 mls @ 125 mls/hr IV .Q8H STA Stop: 10/26/18 04:53 Last Admin: 10/25/18 21:23 Dose: 125 mls/hr Documented by: [id number] Miscellaneous (Carbohydrates For Hypoglycemia) 15 - 30 gm PO UD PRN PRN Reason: Hypoglycemia Treatment Stop: 11/24/18 22:24 Last Admin: 10/25/18 22:32 Dose: 30 gm Documented by: [id number] Discontinued Medications Calcium Gluconate (Calcium Gluconate 10%) Confirm Administered Dose 1,000 mg IV .STK-MED ONE Stop: 10/25/18 21:10 Last Admin: 10/25/18 21:23 Dose: Not Given Documented by: [id number] Dextrose (Dextrose 50%) 25 ml IV NOW ONE Stop: 10/25/18 20:52 Last Admin: 10/25/18 21:22 Dose: 25 ml Documented by: [id number] Calcium Gluconate 1,000 mg/ (Sodium Chloride) 60 mls @ 240 mls/hr IV NOW STA Stop: 10/25/18 21:05 Last Infusion: 10/25/18 21:40 Dose: 0 mls/hr Documented by: [id number] Admin: 10/25/18 21:23 Dose: 240 mls/hr Documented by: [id number] Insulin Human Regular (Novolin R U-100 Per Unit) 10 units IV NOW STA Stop: 10/25/18 20:52 Last Admin: 10/25/18 21:23 Dose: 10 units Documented by: [id number] Cosigned by: [id number] Sodium Bicarbonate (Sodium Bicarbonate 8.4%) 50 meq IV NOW STA Stop: 10/25/18 20:52 Last Admin: 10/25/18 21:22 Dose: 50 meq Documented by: [id number] ECG Data Attestation: I personally reviewed and interpreted this ECG as follows: Indication: other (abnormal lab results) Rate (beats per minute): 59 Rhythm: sinus bradycardia Findings: + other (Non-specific interventricular block, no peaked T-waves) and + 1st degree AV block; no PAC and no PVC Discharge Plan Visit Data *Final* Discharge Date/Time: 10/25/18 21:55 Chief Complaint: Abnormal Labs/Diagnostic Testing Stated Complaint: HYPERKALEMIA ED Provider: Paramjit Gasca Discharge Problem: Hyperkalemia Patient Disposition: Admitted As Inpatient Discharge Instructions Interventions: ED Discharge Assessment Last Done: 10/25/18 21:55 The scribe's documentation has been prepared under my direction and personally reviewed by me in its entirety. I confirm that the note above accurately reflects all work, treatment, procedures, and medical decision making performed by me.
[2018-10-25] MEDS ORDERED: Nursing to Pharmacy Communication ONE (23:10)
[2018-10-26] MEDS: METOPROLOL TARTRATE 25 MG TAB PO SCH ×3 (00:45→20:28)
[2018-10-26] MEDS ORDERED: PNEUMOCOCCAL ADMINISTRATION CHARGE ONE (05:00)
[2018-10-26] MEDS ORDERED: PNEUMOCOCCAL POLYSACCHARIDES 25 MCG/0.5 ML VIAL/SYR IM ONE (05:00)
[2018-10-26] MEDS: LEVOTHYROXINE SODIUM 75 MCG TABLET PO SCH (05:59)
[2018-10-26] MEDS ORDERED: INSULIN ASPART 100 UNITS/ML 3 ML PEN SC SCH (07:30)
[2018-10-26] MEDS: MAGNESIUM OXIDE 400 MG TAB PO SCH ×2 (07:34→20:27)
[2018-10-26] MEDS: AMIODARONE 200 MG TAB PO SCH (07:35)
[2018-10-26] MEDS: AMLODIPINE BESYLATE 5 MG TAB PO SCH (07:35)
[2018-10-26 08:03] LABS: Basophils # (auto) 0.03 K/uL (0-0.2); Basophils % (auto) 0.7 %; Eosinophils # (auto) 0.11 K/uL (0-0.5); Eosinophils % (auto) 2.7 %; Hemoglobin 11.3 g/dL (14.0-18.0); Immature Granulocytes # (auto) 0.06 K/uL (0.00-0.02); Immature Granulocytes % (auto) 1.5 %; Lymphocytes # (auto) 0.74 K/uL (1.2-3.4); Lymphocytes % (auto) 18.2 %; Mean Corpuscular Hgb Conc 31.4 g/dL (32-36); Mean Platelet Volume 9.9 fL (7.4-10.4); Monocytes # (auto) 0.49 K/uL (0.11-0.59); Neutrophils # (auto) 2.64 K/uL (1.4-6.5); Neutrophils % (auto) 64.9 %; Platelet Count 176 K/uL (130-400); RDW Coefficient of Variation 14.9 % (11.5-14.5); RDW Standard Deviation 47.9 fL (36.4-46.3); Red Blood Count 4.09 M/uL (4.7-6.1); White Blood Count 4.07 K/uL (4.8-10.8)
[2018-10-26 08:10] LABS: INR 3.2 (0.9-1.1); Prothrombin Time 30.2 Seconds (9.0-12.0)
[2018-10-26 08:46] LABS: BUN Creatinine Ratio 15.2 (10-20); Calcium 8.7 mg/dl (8.5-10.1); Creatinine Clr Calc Pharmacy 45.1 ml/min; Est GFR (African American) 41.4; Est GFR (Non-African American) 35.7; Potassium 6.3 mmol/L (3.5-5.1)
[2018-10-26] MEDS ORDERED: SODIUM POLYSTYRENE SULFONATE 15G/60ML SUSP PO STA ×2 (09:02→18:36)
[2018-10-26] MEDS ORDERED: SODIUM CHLORIDE 0.9% 1000ML 500 ML IV ONE (09:20)
[2018-10-26] MEDS ORDERED: CALCIUM GLUCONATE 10% 1,000 MG in SODIUM CHLORIDE 0.9% 50 ML IV ONE (09:30)
[2018-10-26] MEDS ORDERED: DEXTROSE 50% 50 ML SYRINGE IV ONE (09:30)
[2018-10-26] MEDS ORDERED: INSULIN HUMAN REGULAR PER UNIT 10 UNITS in SYRINGE 9.9 ML IV SCH (09:35)
--- NOTE | 2018-10-26 13:17 | Hospitalist Progress Note ---
Date of Service October 26, 2018 Assessment & Plan (1) Hyperkalemia: - Has been a chronic issue over the last few months; ACEI was d/c'ed as outpatient, not currently on agents at home leading to lab work abnormality. - K level increased to 6.3 this morning - received Lisandro gluconate IV, Insulin/D50 and Kayexalate. Also ordered NS 500 cc bolus. - EKG negative for acute abnormalities. - Monitor BMP frequently -- repeat level pending following treatment this morning. - Per review of outpatient records, recent hospitalization in [place] for bowel resection was complicated by GAYATRI. Elevated potassium was treated with Kayexalate, and home Lisinopril discontinued per nephrology's recommendations - Nephrology consulted. (2) Acute respiratory failure with hypoxia: - Has been requiring 2L via NC intermittently -- will continue to monitor. - Wean as tolerated. (3) CKD (chronic kidney disease), stage III: - Creatinine currently at baseline, will monitor. - Renally dose all meds. (4) Diverticulitis of colon: - S/p drain placement and bowel resection due to diverticulitis w/abscess at [facility] on 10/10/18. - Doing well post op. (5) Chronic diastolic (congestive) heart failure: - Monitor net I/O's and daily weights. - Caution with IV fluids -- no recent echo to evaluate underlying heart function. - Consider CXR to rule out pulm edema in setting of hypoxia. - Continue Lopressor as prescribed. (6) Chronic low back pain: - Continue pain meds prn. (7) Hypertension: - Continue Amlodipine 5 mg qAM and Metoprolol 25 mg BID. (8) Hypothyroidism: - Continue home Synthroid 75 mcg daily. - TSH is 2.85. (9) Paroxysmal atrial flutter: - Continue home amiodarone and metoprolol - Will hold home Warfarin -- INR was >3. Monitor daily. (10) Diabetes mellitus type 2, uncontrolled: - Hold home glipizide (recently transitioned from glimepiride), metformin and Januvia - Holding SSI due to hypoglycemia. - Hemoglobin A1C is pending. (11) Hypercholesterolemia: - Not currently on statin agent. (12) Obstructive sleep apnea: - CPAP qhs. (13) DVT prophylaxis: - SCDs; Heparin q12hr. Dispo: Med/surg with tele for treatment of hyperkalemia. Supervising Physician Co-Signing Physician Notes PA Supervision Note: I did not personally see or examine the patient today, but I verified all montero points of CRISTOPHER Tolbert's assessment and plan with the following exceptions/additions: None Subjective Pt feels well overall -- K level increased back to 6.3 this morning. Denies chest pain, SOB, N/V, constipation or diarrhea, dysuria. He reports issues with potassium started in July-August and have persisted throughout the summer. His surgery was completed in [place] on October 10. Acute hyperkalemia noted on PCP labwork from yesterday. Review of Systems Review of Systems: All systems reviewed & are unremarkable except as noted in HPI & below Constitutional: no fever, no chills, no fatigue, no weakness and no anorexia Respiratory: no cough, no dyspnea, no dyspnea on exertion and no wheezing Cardiovascular: no chest pain, no palpitations and no edema Gastrointestinal: no abdominal pain, no nausea, no vomiting and no constipation Genitourinary: no dysuria, no difficulty urinating and no hematuria Musculoskeletal: no back pain and no joint pain Integumentary: no non-healing lesions Physical Exam Physical Exam: General: Resting comfortably HEENT: NC/AT; PERRLA with EOMI; [place] conjunctiva, MMM. No erythema of posterior pharynx Neck: Supple and nontender Cardiac: RRR Lungs: on 2L via NC; CTA bilaterally Abdomen: Bowel normoactive X 4; Nontender to palpation Extremities: Warm. No edema present Neuro: No focal weakness Skin: No rash; purple discoloration on bilat LE, c/w chronic venous insufficiency. Results & Data Vital Signs (Past 12 Hours) Vital Signs Temp Pulse Resp BP Pulse Ox 10/26/18 08:27 36.5 C 48 L 18 149/88 H 99 10/26/18 03:42 36.7 C 50 L 18 135/71 98 Laboratory Results 10/26/18 10/26/18 10/26/18 Range/Units 12:32 11:52 10:55 WBC (4.8-10.8) K/uL RBC (4.7-6.1) M/uL Hgb (14.0-18.0) g/dL POC Hgb (14.0-18.0) g/dl Hct (42-52) % POC Hct (42-52) % MCV (80-100) fL MCH (25-34) pg MCHC (32-36) g/dL RDW Std Deviation (36.4-46.3) fL RDW Coeff of Guy (11.5-14.5) % Plt Count (130-400) K/uL MPV (7.4-10.4) fL Immature Gran % (Auto) % Neut % (Auto) % Lymph % (Auto) % [place] % (Auto) % Eos % (Auto) % Baso % (Auto) % Immature Gran # (Auto) (0.00-0.02) K/uL Neut # (Auto) (1.4-6.5) K/uL Lymph # (Auto) (1.2-3.4) K/uL [place] # (Auto) (0.11-0.59) K/uL Eos # (Auto) (0-0.5) K/uL Baso # (Auto) (0-0.2) K/uL PT (9.0-12.0) Seconds INR (0.9-1.1) POC Sodium (135-144) mEq/L Sodium Pending (136-145) mmol/L POC Potassium (3.3-5.0) mEq/L Potassium Pending (3.5-5.1) mmol/L POC Chloride (101-112) mEq/L Chloride Pending (98-107) mmol/L Carbon Dioxide Pending (21-32) mmol/L POC Total CO2 (24-31) mEq/l Anion Gap Pending (3-11) POC Anion Gap (16-25) mmol/L POC BUN (7-18) mg/dl BUN Pending (7-18) mg/dl Creatinine Pending (0.6-1.4) mg/dl POC Creatinine (0.6-1.3) mg/dl Est Cr Clr Drug Dosing Pending ml/min Est GFR ( Amer) Pending Est GFR (Non-Af Amer) Pending BUN/Creatinine Ratio Pending (10-20) Glucose Pending (70-99) mg/dl POC Glucose 125 H 120 H (70-99) POC Glucose (other) (70-99) mg/dl Calcium Pending (8.5-10.1) mg/dl POC Ioniz Calcium Mariano (1.12-1.32) mmol/l Magnesium (1.8-2.4) mg/dl Total Bilirubin (0.2-1) mg/dl AST (15-37) U/L ALT (12-78) U/L Alkaline Phosphatase (45-117) U/L Total Protein (6.4-8.2) gm/dl Albumin (3.4-5.0) gm/dl Globulin (2.5-4.0) gm/dl Albumin/Globulin Ratio (0.9-2) TSH (0.300-4.500) uIu/ml Urine Color Urine Appearance (Clear) Urine pH (4.5-7.5) Ur Specific [place] (1.000-1.030) Urine Protein (Negative) Urine Glucose (UA) (Negative) Urine Ketones (Negative) Urine Blood (Negative) Urine Nitrite (Negative) Urine Bilirubin (Negative) Urine Urobilinogen (Negative) Ur Leukocyte Esterase (Negative) Urine WBC (Auto) (0-5) /hpf Urine RBC (Auto) (0-4) /hpf U Hyaline Cast (Auto) (0-5) /lpf U Epithel Cells (Auto) (0-5) /lpf Urine Bacteria (Auto) (Negative) Ur Renal Epithelial Cell (0-5) /lpf Granular Casts (0) /lpf 10/26/18 10/26/18 10/26/18 Range/Units 07:57 07:24 07:24 WBC 4.07 L (4.8-10.8) K/uL RBC 4.09 L (4.7-6.1) M/uL Hgb 11.3 L (14.0-18.0) g/dL POC Hgb (14.0-18.0) g/dl Hct 36.0 L (42-52) % POC Hct (42-52) % MCV 88.0 (80-100) fL MCH 27.6 (25-34) pg MCHC 31.4 L (32-36) g/dL RDW Std Deviation 47.9 H (36.4-46.3) fL RDW Coeff of Guy 14.9 H (11.5-14.5) % Plt Count 176 (130-400) K/uL MPV 9.9 (7.4-10.4) fL Immature Gran % (Auto) 1.5 % Neut % (Auto) 64.9 % Lymph % (Auto) 18.2 % [place] % (Auto) 12.0 % Eos % (Auto) 2.7 % Baso % (Auto) 0.7 % Immature Gran # (Auto) 0.06 H (0.00-0.02) K/uL Neut # (Auto) 2.64 (1.4-6.5) K/uL Lymph # (Auto) 0.74 L (1.2-3.4) K/uL [place] # (Auto) 0.49 (0.11-0.59) K/uL Eos # (Auto) 0.11 (0-0.5) K/uL Baso # (Auto) 0.03 (0-0.2) K/uL PT (9.0-12.0) Seconds INR (0.9-1.1) POC Sodium (135-144) mEq/L Sodium 142 (136-145) mmol/L POC Potassium (3.3-5.0) mEq/L Potassium 6.3 H* (3.5-5.1) mmol/L POC Chloride (101-112) mEq/L Chloride 108 H (98-107) mmol/L Carbon Dioxide 32 (21-32) mmol/L POC Total CO2 (24-31) mEq/l Anion Gap 2.0 L (3-11) POC Anion Gap (16-25) mmol/L POC BUN (7-18) mg/dl BUN 29 H (7-18) mg/dl Creatinine 1.92 H D (0.6-1.4) mg/dl POC Creatinine (0.6-1.3) mg/dl Est Cr Clr Drug Dosing 45.1 ml/min Est GFR ( Amer) 41.4 Est GFR (Non-Af Amer) 35.7 BUN/Creatinine Ratio 15.2 (10-20) Glucose 105 H (70-99) mg/dl POC Glucose 103 H (70-99) POC Glucose (other) (70-99) mg/dl Calcium 8.7 (8.5-10.1) mg/dl POC Ioniz Calcium Mariano (1.12-1.32) mmol/l Magnesium (1.8-2.4) mg/dl Total Bilirubin (0.2-1) mg/dl AST (15-37) U/L ALT (12-78) U/L Alkaline Phosphatase (45-117) U/L Total Protein (6.4-8.2) gm/dl Albumin (3.4-5.0) gm/dl Globulin (2.5-4.0) gm/dl Albumin/Globulin Ratio (0.9-2) TSH (0.300-4.500) uIu/ml Urine Color Urine Appearance (Clear) Urine pH (4.5-7.5) Ur Specific [place] (1.000-1.030) Urine Protein (Negative) Urine Glucose (UA) (Negative) Urine Ketones (Negative) Urine Blood (Negative) Urine Nitrite (Negative) Urine Bilirubin (Negative) Urine Urobilinogen (Negative) Ur Leukocyte Esterase (Negative) Urine WBC (Auto) (0-5) /hpf Urine RBC (Auto) (0-4) /hpf U Hyaline Cast (Auto) (0-5) /lpf U Epithel Cells (Auto) (0-5) /lpf Urine Bacteria (Auto) (Negative) Ur Renal Epithelial Cell (0-5) /lpf Granular Casts (0) /lpf 10/26/18 10/25/18 10/25/18 Range/Units 07:24 22:47 22:31 WBC (4.8-10.8) K/uL RBC (4.7-6.1) M/uL Hgb (14.0-18.0) g/dL POC Hgb (14.0-18.0) g/dl Hct (42-52) % POC Hct (42-52) % MCV (80-100) fL MCH (25-34) pg MCHC (32-36) g/dL RDW Std Deviation (36.4-46.3) fL RDW Coeff of Guy (11.5-14.5) % Plt Count (130-400) K/uL MPV (7.4-10.4) fL Immature Gran % (Auto) % Neut % (Auto) % Lymph % (Auto) % [place] % (Auto) % Eos % (Auto) % Baso % (Auto) % Immature Gran # (Auto) (0.00-0.02) K/uL Neut # (Auto) (1.4-6.5) K/uL Lymph # (Auto) (1.2-3.4) K/uL [place] # (Auto) (0.11-0.59) K/uL Eos # (Auto) (0-0.5) K/uL Baso # (Auto) (0-0.2) K/uL PT 30.2 H (9.0-12.0) Seconds INR 3.2 H (0.9-1.1) POC Sodium (135-144) mEq/L Sodium (136-145) mmol/L POC Potassium (3.3-5.0) mEq/L Potassium (3.5-5.1) mmol/L POC Chloride (101-112) mEq/L Chloride (98-107) mmol/L Carbon Dioxide (21-32) mmol/L POC Total CO2 (24-31) mEq/l Anion Gap (3-11) POC Anion Gap (16-25) mmol/L POC BUN (7-18) mg/dl BUN (7-18) mg/dl Creatinine (0.6-1.4) mg/dl POC Creatinine (0.6-1.3) mg/dl Est Cr Clr Drug Dosing ml/min Est GFR ( Amer) Est GFR (Non-Af Amer) BUN/Creatinine Ratio (10-20) Glucose (70-99) mg/dl POC Glucose 74 42 L* (70-99) POC Glucose (other) (70-99) mg/dl Calcium (8.5-10.1) mg/dl POC Ioniz Calcium Mariano (1.12-1.32) mmol/l Magnesium (1.8-2.4) mg/dl Total Bilirubin (0.2-1) mg/dl AST (15-37) U/L ALT (12-78) U/L Alkaline Phosphatase (45-117) U/L Total Protein (6.4-8.2) gm/dl Albumin (3.4-5.0) gm/dl Globulin (2.5-4.0) gm/dl Albumin/Globulin Ratio (0.9-2) TSH (0.300-4.500) uIu/ml Urine Color Urine Appearance (Clear) Urine pH (4.5-7.5) Ur Specific [place] (1.000-1.030) Urine Protein (Negative) Urine Glucose (UA) (Negative) Urine Ketones (Negative) Urine Blood (Negative) Urine Nitrite (Negative) Urine Bilirubin (Negative) Urine Urobilinogen (Negative) Ur Leukocyte Esterase (Negative) Urine WBC (Auto) (0-5) /hpf Urine RBC (Auto) (0-4) /hpf U Hyaline Cast (Auto) (0-5) /lpf U Epithel Cells (Auto) (0-5) /lpf Urine Bacteria (Auto) (Negative) Ur Renal Epithelial Cell (0-5) /lpf Granular Casts (0) /lpf 10/25/18 10/25/18 10/25/18 Range/Units 22:28 21:21 20:00 WBC (4.8-10.8) K/uL RBC (4.7-6.1) M/uL Hgb (14.0-18.0) g/dL POC Hgb (14.0-18.0) g/dl Hct (42-52) % POC Hct (42-52) % MCV (80-100) fL MCH (25-34) pg MCHC (32-36) g/dL RDW Std Deviation (36.4-46.3) fL RDW Coeff of Guy (11.5-14.5) % Plt Count (130-400) K/uL MPV (7.4-10.4) fL Immature Gran % (Auto) % Neut % (Auto) % Lymph % (Auto) % [place] % (Auto) % Eos % (Auto) % Baso % (Auto) % Immature Gran # (Auto) (0.00-0.02) K/uL Neut # (Auto) (1.4-6.5) K/uL Lymph # (Auto) (1.2-3.4) K/uL [place] # (Auto) (0.11-0.59) K/uL Eos # (Auto) (0-0.5) K/uL Baso # (Auto) (0-0.2) K/uL PT (9.0-12.0) Seconds INR (0.9-1.1) POC Sodium (135-144) mEq/L Sodium (136-145) mmol/L POC Potassium (3.3-5.0) mEq/L Potassium (3.5-5.1) mmol/L POC Chloride (101-112) mEq/L Chloride (98-107) mmol/L Carbon Dioxide (21-32) mmol/L POC Total CO2 (24-31) mEq/l Anion Gap (3-11) POC Anion Gap (16-25) mmol/L POC BUN (7-18) mg/dl BUN (7-18) mg/dl Creatinine (0.6-1.4) mg/dl POC Creatinine (0.6-1.3) mg/dl Est Cr Clr Drug Dosing ml/min Est GFR ( Amer) Est GFR (Non-Af Amer) BUN/Creatinine Ratio (10-20) Glucose (70-99) mg/dl POC Glucose 37 L* 168 H (70-99) POC Glucose (other) (70-99) mg/dl Calcium (8.5-10.1) mg/dl POC Ioniz Calcium Mariano (1.12-1.32) mmol/l Magnesium (1.8-2.4) mg/dl Total Bilirubin (0.2-1) mg/dl AST (15-37) U/L ALT (12-78) U/L Alkaline Phosphatase (45-117) U/L Total Protein (6.4-8.2) gm/dl Albumin (3.4-5.0) gm/dl Globulin (2.5-4.0) gm/dl Albumin/Globulin Ratio (0.9-2) TSH (0.300-4.500) uIu/ml Urine Color Dark Yellow Urine Appearance Cloudy A (Clear) Urine pH 5.0 (4.5-7.5) Ur Specific [place] 1.022 (1.000-1.030) Urine Protein 2+ H (Negative) Urine Glucose (UA) Negative (Negative) Urine Ketones Trace H (Negative) Urine Blood Negative (Negative) Urine Nitrite Negative (Negative) Urine Bilirubin Negative (Negative) Urine Urobilinogen Negative (Negative) Ur Leukocyte Esterase Negative (Negative) Urine WBC (Auto) 1-5 (0-5) /hpf Urine RBC (Auto) 0-4 (0-4) /hpf U Hyaline Cast (Auto) >30 H (0-5) /lpf U Epithel Cells (Auto) >30 H (0-5) /lpf Urine Bacteria (Auto) Negative (Negative) Ur Renal Epithelial Cell 5-10 H (0-5) /lpf Granular Casts 1-5 H (0) /lpf 10/25/18 10/25/18 10/25/18 Range/Units 19:47 19:40 19:40 WBC (4.8-10.8) K/uL RBC (4.7-6.1) M/uL Hgb (14.0-18.0) g/dL POC Hgb 11.9 L (14.0-18.0) g/dl Hct (42-52) % POC Hct 35 L (42-52) % MCV (80-100) fL MCH (25-34) pg MCHC (32-36) g/dL RDW Std Deviation (36.4-46.3) fL RDW Coeff of Guy (11.5-14.5) % Plt Count (130-400) K/uL MPV (7.4-10.4) fL Immature Gran % (Auto) % Neut % (Auto) % Lymph % (Auto) % [place] % (Auto) % Eos % (Auto) % Baso % (Auto) % Immature Gran # (Auto) (0.00-0.02) K/uL Neut # (Auto) (1.4-6.5) K/uL Lymph # (Auto) (1.2-3.4) K/uL [place] # (Auto) (0.11-0.59) K/uL Eos # (Auto) (0-0.5) K/uL Baso # (Auto) (0-0.2) K/uL PT 27.7 H (9.0-12.0) Seconds INR 2.9 H (0.9-1.1) POC Sodium 141 (135-144) mEq/L Sodium 142 (136-145) mmol/L POC Potassium 6.2 H* (3.3-5.0) mEq/L Potassium 6.1 H* (3.5-5.1) mmol/L POC Chloride 104 (101-112) mEq/L Chloride 107 (98-107) mmol/L Carbon Dioxide 31 (21-32) mmol/L POC Total CO2 26 (24-31) mEq/l Anion Gap 4.0 (3-11) POC Anion Gap 19.0 (16-25) mmol/L POC BUN 36 H (7-18) mg/dl BUN 34 H (7-18) mg/dl Creatinine 2.23 H (0.6-1.4) mg/dl POC Creatinine 2.3 H (0.6-1.3) mg/dl Est Cr Clr Drug Dosing 38.7 ml/min Est GFR ( Amer) 34.6 Est GFR (Non-Af Amer) 29.8 BUN/Creatinine Ratio 15.0 (10-20) Glucose 201 H (70-99) mg/dl POC Glucose (70-99) POC Glucose (other) 208 H (70-99) mg/dl Calcium 8.7 (8.5-10.1) mg/dl POC Ioniz Calcium Mariano 1.22 (1.12-1.32) mmol/l Magnesium 2.0 (1.8-2.4) mg/dl Total Bilirubin 0.3 (0.2-1) mg/dl AST 8 L (15-37) U/L ALT 15 (12-78) U/L Alkaline Phosphatase 55 (45-117) U/L Total Protein 7.4 (6.4-8.2) gm/dl Albumin 3.5 (3.4-5.0) gm/dl Globulin 3.9 (2.5-4.0) gm/dl Albumin/Globulin Ratio 0.9 (0.9-2) TSH 2.850 (0.300-4.500) uIu/ml Urine Color Urine Appearance (Clear) Urine pH (4.5-7.5) Ur Specific [place] (1.000-1.030) Urine Protein (Negative) Urine Glucose (UA) (Negative) Urine Ketones (Negative) Urine Blood (Negative) Urine Nitrite (Negative) Urine Bilirubin (Negative) Urine Urobilinogen (Negative) Ur Leukocyte Esterase (Negative) Urine WBC (Auto) (0-5) /hpf Urine RBC (Auto) (0-4) /hpf U Hyaline Cast (Auto) (0-5) /lpf U Epithel Cells (Auto) (0-5) /lpf Urine Bacteria (Auto) (Negative) Ur Renal Epithelial Cell (0-5) /lpf Granular Casts (0) /lpf 10/25/18 Range/Units 19:40 WBC 6.45 (4.8-10.8) K/uL RBC 4.17 L (4.7-6.1) M/uL Hgb 11.7 L (14.0-18.0) g/dL POC Hgb (14.0-18.0) g/dl Hct 36.5 L (42-52) % POC Hct (42-52) % MCV 87.5 (80-100) fL MCH 28.1 (25-34) pg MCHC 32.1 (32-36) g/dL RDW Std Deviation 47.8 H (36.4-46.3) fL RDW Coeff of Guy 14.9 H (11.5-14.5) % Plt Count 201 (130-400) K/uL MPV 9.7 (7.4-10.4) fL Immature Gran % (Auto) 1.7 % Neut % (Auto) 76.4 % Lymph % (Auto) 11.3 % [place] % (Auto) 8.7 % Eos % (Auto) 1.4 % Baso % (Auto) 0.5 % Immature Gran # (Auto) 0.11 H (0.00-0.02) K/uL Neut # (Auto) 4.93 (1.4-6.5) K/uL Lymph # (Auto) 0.73 L (1.2-3.4) K/uL [place] # (Auto) 0.56 (0.11-0.59) K/uL Eos # (Auto) 0.09 (0-0.5) K/uL Baso # (Auto) 0.03 (0-0.2) K/uL PT (9.0-12.0) Seconds INR (0.9-1.1) POC Sodium (135-144) mEq/L Sodium (136-145) mmol/L POC Potassium (3.3-5.0) mEq/L Potassium (3.5-5.1) mmol/L POC Chloride (101-112) mEq/L Chloride (98-107) mmol/L Carbon Dioxide (21-32) mmol/L POC Total CO2 (24-31) mEq/l Anion Gap (3-11) POC Anion Gap (16-25) mmol/L POC BUN (7-18) mg/dl BUN (7-18) mg/dl Creatinine (0.6-1.4) mg/dl POC Creatinine (0.6-1.3) mg/dl Est Cr Clr Drug Dosing ml/min Est GFR ( Amer) Est GFR (Non-Af Amer) BUN/Creatinine Ratio (10-20) Glucose (70-99) mg/dl POC Glucose (70-99) POC Glucose (other) (70-99) mg/dl Calcium (8.5-10.1) mg/dl POC Ioniz Calcium Mariano (1.12-1.32) mmol/l Magnesium (1.8-2.4) mg/dl Total Bilirubin (0.2-1) mg/dl AST (15-37) U/L ALT (12-78) U/L Alkaline Phosphatase (45-117) U/L Total Protein (6.4-8.2) gm/dl Albumin (3.4-5.0) gm/dl Globulin (2.5-4.0) gm/dl Albumin/Globulin Ratio (0.9-2) TSH (0.300-4.500) uIu/ml Urine Color Urine Appearance (Clear) Urine pH (4.5-7.5) Ur Specific [place] (1.000-1.030) Urine Protein (Negative) Urine Glucose (UA) (Negative) Urine Ketones (Negative) Urine Blood (Negative) Urine Nitrite (Negative) Urine Bilirubin (Negative) Urine Urobilinogen (Negative) Ur Leukocyte Esterase (Negative) Urine WBC (Auto) (0-5) /hpf Urine RBC (Auto) (0-4) /hpf U Hyaline Cast (Auto) (0-5) /lpf U Epithel Cells (Auto) (0-5) /lpf Urine Bacteria (Auto) (Negative) Ur Renal Epithelial Cell (0-5) /lpf Granular Casts (0) /lpf PG Care Time/CCT Total # of Minutes Spent Total Time Spent with Patient: Total time spent is greater than 50% in coordination of care (as documented) at patient's floor/unit and/or counseling patient:
[2018-10-26 13:26] LABS: BUN Creatinine Ratio 15.9 (10-20); Calcium 8.9 mg/dl (8.5-10.1); Creatinine Clr Calc Pharmacy 47.3 ml/min; Est GFR (African American) 43.9; Est GFR (Non-African American) 37.9; Potassium 5.8 mmol/L (3.5-5.1)
[2018-10-26 13:52] LABS: Estimated Average Glucose 171 mg/dl; Hemoglobin A1C 7.6 % (4.5-5.6)
--- NOTE | 2018-10-26 14:39 | Nephrology Consultation ---
Date of Consultation October 26, 2018 Assessment & Plan (1) Hyperkalemia: This is associated with renal insufficiency and high potassium diet. No related changes noted on EKG. Potassium is improving following a dose of SPS. No acute EKG changes. Low-potassium diet instituted. Patient require education on maintaining low potassium diet post discharge. He is not currently receiving any rasp blockade. Volume status appears appropriate. No additional therapy is necessary at this time. We will continue to monitor. Please document eyes and nose repeat metabolic profile tomorrow morning. My primary concern is bradycardia and first-degree AV block while taking amiodarone. Risks and benefits of current continuing the current doses medication will need to be taken into consideration. The patient denies any current complaints with regard to this. He does have a history of diastolic congestive heart failure cysts with atrial fibrillation in the past. However at this time I have seen no evidence of decompensated heart failure. He has received IV saline and tolerated the infusions well. (2) CKD (chronic kidney disease), stage III: Outpatient follow-up has been scheduled with Dr. Hopkins following his recent hospitalization. Creatinine remained stable at his baseline. No additional changes will be necessary at this time. Patient's medications are appropriate for kidney function. Again renal diet including low potassium of less than 2 grams per day should be stressed. (3) Diverticulitis of colon: (4) Chronic diastolic (congestive) heart failure: (5) Hypertension: (6) Paroxysmal atrial flutter: (7) Diabetes mellitus type 2, uncontrolled: History of Present Illness Reason for Consultation: Hyperkalemia Requesting Physician: Doris Holly MD Attending Physician: Doris Holly MD History of Present Illness Mr. Bairon crabtree is a 63-year-old male with class 3 chronic kidney disease. The patient suffered a recent episode of acute kidney [facility] The patient was initially managed with sigmoid diverticulitis. This was complicated by perforation and pneumoperitoneum. This required drain placement for which the patient was transferred for IR at [facility]. Patient completed a course of Zosyn transitioned to Augmentin for 2 weeks to complete therapy. Blood cultures at that time positive for Clostridium ramosum. He responded well to treatment. Serum creatinine plateaued approximately 1.9 milligram/deciliter. Kidney injury was at least in part attributed to prerenal azotemia. At the time of discharge his Bumex has been held. The medication has not been restarted since discharge. If patient's medical history is also notable for paroxysmal atrial fibrillation, obesity, uncontrolled type 2 diabetes mellitus, hypothyroidism, hypertension, gout, and history of diastolic congestive heart failure. He was referred to [facility] yesterday after follow-up laboratory studies demonstrated a serum potassium of 6.7 millimoles per liter. Patient received IV insulin, calcium gluconate, and bicarbonate therapy. He was admitted for additional observation evaluation. EKG documented sinus bradycardia with first-degree AV block. There were no acute concerning changes. After monitoring overnight potassium remained elevated at 6.3 millimoles per liter. Metabolic profile is was acceptable. Serum bicarbonate is 32 at this time. During my evaluation this morning the patient felt well in no acute complaints or concerns. Self reported diet is high potassium. Take knowledge this risk. Following the dose of Kayexalate 15 grams this morning, serum potassium is now 5.8 millimoles per liter. Urine output is appropriate. Blood pressure is normal. Allergies Allergy/AdvReac Type Severity Reaction Status Date / Time furosemide [From Lasix] AdvReac Rash Verified 10/25/18 21:26 Home Medications Home Medications Medication Instructions Recorded Confirmed Type amlodipine 5 mg PO QAM 08/08/18 10/25/18 History magnesium 400 mg (as magnesium 800 mg PO BID #120 tab 08/08/18 10/25/18 Rx oxide) tablet metoprolol tartrate 50 mg tablet 25 mg PO BID #90 tab 08/08/18 10/25/18 Rx sitagliptin [Januvia] 25 mg PO DAILY 08/08/18 10/25/18 History warfarin 6 mg PO QAM 08/08/18 10/25/18 History levothyroxine 75 mcg tablet 75 mcg PO QAM 08/23/18 10/25/18 History amiodarone 200 mg PO QAM 10/25/18 10/25/18 History fluticasone propion-salmeterol 1 inh INHALATION BID PRN 10/25/18 10/25/18 History [Advair Diskus] glipizide 10 mg PO BID 10/25/18 10/25/18 History metformin 500 mg PO BID 10/25/18 10/25/18 History tramadol 50 mg PO Q6H PRN 10/25/18 10/25/18 History Patient History Medical History On home oxygen therapy 6L @ night with CPAP Osteoarthritis Anticoagulant long-term use (Chronic) Asthma (Chronic) CKD (chronic kidney disease), stage III (Chronic) Chronic diastolic (congestive) heart failure (Chronic) Chronic low back pain (Chronic) Edema (Chronic) Hearing loss, bilateral (Chronic) Hypertension (Chronic) Hypothyroidism (Chronic) Sleep related hypoxia (Chronic) Paroxysmal atrial flutter (Chronic) Obstructive sleep apnea (Chronic) Hypercholesterolemia (Chronic) Diabetic peripheral neuropathy (Chronic) Diabetes mellitus with albuminuria (Chronic) Diabetes mellitus type 2, uncontrolled (Chronic) Thrombocytopenia (Chronic) GAYATRI (acute kidney injury) (Resolved) Acute kidney injury superimposed on CKD (Resolved) UO Bacteremia (Resolved) Diverticulitis of colon with perforation (Resolved) Hyperkalemia (Resolved) Hypoxia (Resolved) New onset atrial flutter (Resolved) Asthma inhaler daily Atrial fibrillation follows with Dr. 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" History of strabismus surgery bilt History of surgery penile implant History of tooth extraction wisdom teeth Status post cervical spinal fusion normal ROM Family History Father Family history of diabetes mellitus Sister Family history of diabetes mellitus Brother Family history of diabetes mellitus Mother Cancer Stomach cancer Hypertension Grandmother Myocardial infarction Hypertension Social History Preferred Language: Kazakh Communication Ability: Effective Asp Net Mvc Developer Required: No Beliefs That Will Affect Care: None marital status: Current Living Situation: Alone current occupational status: employed current occupation: Works at [employer] Other Information That Helps Us Care for You: No Feels Safe at Home: Yes Safety Concerns: Feels Safe At This Time Smoking Status: Former smoker Tobacco Type: smokeless tobacco ; packs per day: 1 ; Do You Dip or Chew Tobacco: Yes ; Second Hand Exposure: No ; Hx Alcohol Use: Yes Alcohol type: beer Alcohol Intake Frequency: Weekly Hx Substance Use: No Review of Systems Review of Systems: All systems reviewed & are unremarkable except as noted in HPI & below Physical Exam Constitutional: well developed; no acute distress Eyes: no scleral abnormality and no corneal abnormality ENMT: Mouth: no oral mucosal abnormality and oral mucous membranes not dry Neck: normal visual inspection and trachea midline Respiratory: normal respiratory effort Auscultation: lungs clear to auscultation bilaterally Cardiovascular: Rate/Rhythm: regular rate and regular rhythm Heart Sounds: normal S1 and normal S2 Vessels: no JVD Gastrointestinal (Abdomen): Percussion/Palpation: abdomen soft; abdomen nontender Musculoskeletal: Extremities: no cyanosis and no clubbing Skin: normal turgor; no rashes Neurologic: Motor/Sensory: no tremor and no asterixis Psychiatric: Orientation: alert and oriented x 3 Results & Data Vital Signs (Past 12 Hours) Vital Signs Temp Pulse Resp BP Pulse Ox 10/26/18 08:27 36.5 C 48 L 18 149/88 H 99 10/26/18 03:42 36.7 C 50 L 18 135/71 98 PG Care Time/CCT Total # of Minutes Spent Total Time Spent with Patient: Total time spent is greater than 50% in coordination of care (as documented) at patient's floor/unit and/or counseling patient:
[2018-10-26] MEDS ORDERED: WARFARIN SOD 6 MG TAB PO SCH (16:00)
[2018-10-26] MEDS ORDERED: CALCIUM GLUCONATE 10% 1,000 MG in SODIUM CHLORIDE 0.9% 50 ML IV STA (18:35)
[2018-10-26] MEDS ORDERED: DEXTROSE 50% 50 ML SYRINGE IV STA (18:38)
[2018-10-26] MEDS ORDERED: INSULIN HUMAN REGULAR PER UNIT 10 UNITS in SYRINGE 9.9 ML IV STA (18:38)
[2018-10-26] MEDS: SODIUM BICARBONATE 8.4% 50 MEQ in SODIUM CHLORIDE 0.9% 1000ML 1,000 ML IV SCH (20:22)
[2018-10-26] MEDS: HEPARIN SOD 5,000 UNIT/0.5 ML VIAL SQ SCH (20:27)
[2018-10-27] MEDS ORDERED: POLYETHYLENE (MIRALAX) 17 GM PACK PO PRN (03:15)
[2018-10-27] MEDS: LEVOTHYROXINE SODIUM 75 MCG TABLET PO SCH (06:05)
[2018-10-27 07:16] LABS: Hematocrit (blood only) 34.9 % (42-52); Hemoglobin 11.2 g/dL (14.0-18.0); Mean Corpuscular Hgb Conc 32.1 g/dL (32-36); Mean Corpuscular Volume 87.5 fL (80-100); Platelet Count 140 K/uL (130-400); RDW Coefficient of Variation 14.7 % (11.5-14.5); RDW Standard Deviation 47.4 fL (36.4-46.3); Red Blood Count 3.99 M/uL (4.7-6.1); White Blood Count 3.69 K/uL (4.8-10.8)
[2018-10-27 07:29] LABS: INR 2.7 (0.9-1.1)
[2018-10-27 07:51] LABS: BUN Creatinine Ratio 14.9 (10-20); Calcium 8.6 mg/dl (8.5-10.1); Creatinine Clr Calc Pharmacy 47.6 ml/min; Est GFR (African American) 44.2; Est GFR (Non-African American) 38.1; Potassium 5.7 mmol/L (3.5-5.1)
[2018-10-27] MEDS: AMIODARONE 200 MG TAB PO SCH (08:19)
[2018-10-27] MEDS: AMLODIPINE BESYLATE 5 MG TAB PO SCH (08:19)
[2018-10-27] MEDS: SODIUM BICARBONATE 8.4% 50 MEQ in SODIUM CHLORIDE 0.9% 1000ML 1,000 ML IV SCH (08:19)
[2018-10-27] MEDS: METOPROLOL TARTRATE 25 MG TAB PO SCH (08:19)
[2018-10-27] MEDS: MAGNESIUM OXIDE 400 MG TAB PO SCH (08:19)
[2018-10-27] MEDS: HEPARIN SOD 5,000 UNIT/0.5 ML VIAL SQ SCH (08:21)
[2018-10-27] MEDS ORDERED: DOCUSATE SODIUM 100 MG CAP PO SCH (09:00)
[2018-10-27] MEDS ORDERED: FUROSEMIDE 20 MG in SYRINGE 0 ML IV ONE (10:15)
--- NOTE | 2018-10-27 10:47 | Nephrology Progress Note ---
Date of Service October 27, 2018 Assessment & Plan (1) Hyperkalemia: Associated with renal insufficiency and high potassium diet. Thankfully creatinine has been stable. Volume status acceptable. EKG did not demonstrate findings related to hyperkalemia. Potassium improving with low potassium diet. SPS 15 gm x 2 provided yesterday. No bowel movement. Potassium improved with IVF and increased urine output. Suggest stopping IVF and providing 20 mg of PO furosemide today. Avoid additional Kayexalate. There is no role for additional HCO3 at this time. Maintain low potassium diet. Bairon will require education on maintaining low potassium diet post discharge. He remains off any RAAS blockade. If potassium continues to improve with repeat metabolic profile this afternoon, I would certainly feel safe with discharge and close outpatient follow up. (2) CKD (chronic kidney disease), stage III: Please schedule follow up with Dr. Hopkins within 2 weeks of discharge. Creatinine remained stable at his baseline. No additional changes will be necessary at this time. Patient's medications are appropriate for kidney function. Again renal diet including low potassium of less than 2 grams per day should be stressed. (3) Diverticulitis of colon: (4) Chronic diastolic (congestive) heart failure: (5) Hypertension: (6) Paroxysmal atrial flutter: My primary concern is persistent bradycardia and first-degree AV block associated with amiodarone. Risks and benefits of the medication need to be reviewed. I would strongly consider a dose reduction to 100 mg daily at least. (7) Diabetes mellitus type 2, uncontrolled: Subjective No acute events overnight. Bairon feels well. No complaints or concerns. Appetite good. No bowel movement since admission. Denies pain. Denies feeling constipated. Expressed understanding regarding low potassium diet. Review of Systems Review of Systems: All systems reviewed & are unremarkable except as noted in HPI & below Physical Exam Constitutional: well developed; no acute distress Eyes: no scleral abnormality and no corneal abnormality ENMT: Mouth: no oral mucosal abnormality and oral mucous membranes not dry Neck: normal visual inspection and trachea midline Respiratory: normal respiratory effort Auscultation: lungs clear to auscultation bilaterally Cardiovascular: Rate/Rhythm: regular rate and regular rhythm Heart Sounds: normal S1 and normal S2 Vessels: no JVD Gastrointestinal (Abdomen): Percussion/Palpation: abdomen soft; abdomen nontender Musculoskeletal: Extremities: no cyanosis and no clubbing Skin: normal turgor; no rashes Neurologic: Motor/Sensory: no tremor and no asterixis Psychiatric: Orientation: alert and oriented x 3 Results & Data Vital Signs (Past 12 Hours) Vital Signs Temp Pulse Pulse Resp BP Pulse Ox 10/27/18 08:22 60 152/79 H 10/27/18 07:44 58 L 10/27/18 07:29 36.5 C 57 L 20 170/83 H 95 10/27/18 04:00 37.0 C 52 L 20 144/80 H 94 10/26/18 23:07 54 L Laboratory Results Laboratory Results - last 24 hr 10/26/18 10/26/18 10/26/18 07:24 10:55 11:52 WBC RBC Hgb Hct MCV MCH MCHC RDW Std Deviation RDW Coeff of Guy Plt Count MPV PT INR Sodium Potassium Chloride Carbon Dioxide Anion Gap BUN Creatinine Est Cr Clr Drug Dosing Est GFR ( Amer) Est GFR (Non-Af Amer) BUN/Creatinine Ratio Glucose POC Glucose 120 H 125 H Estimat Average Glucose 171 Hemoglobin A1c 7.6 H Calcium 10/26/18 10/26/18 10/26/18 12:32 16:52 17:38 WBC RBC Hgb Hct MCV MCH MCHC RDW Std Deviation RDW Coeff of Guy Plt Count MPV PT INR Sodium 141 Potassium 5.8 H 6.1 H* Chloride 107 Carbon Dioxide 30 Anion Gap 4.0 BUN 29 H Creatinine 1.83 H Est Cr Clr Drug Dosing 47.3 Est GFR ( Amer) 43.9 Est GFR (Non-Af Amer) 37.9 BUN/Creatinine Ratio 15.9 Glucose 108 H POC Glucose 141 H Estimat Average Glucose Hemoglobin A1c Calcium 8.9 10/26/18 10/26/18 10/26/18 20:22 22:38 23:36 WBC RBC Hgb Hct MCV MCH MCHC RDW Std Deviation RDW Coeff of Guy Plt Count MPV PT INR Sodium Potassium 5.5 H Chloride Carbon Dioxide Anion Gap BUN Creatinine Est Cr Clr Drug Dosing Est GFR ( Amer) Est GFR (Non-Af Amer) BUN/Creatinine Ratio Glucose POC Glucose 158 H 133 H Estimat Average Glucose Hemoglobin A1c Calcium 10/27/18 10/27/18 10/27/18 07:05 07:05 07:05 WBC 3.69 L RBC 3.99 L Hgb 11.2 L Hct 34.9 L MCV 87.5 MCH 28.1 MCHC 32.1 RDW Std Deviation 47.4 H RDW Coeff of Guy 14.7 H Plt Count 140 MPV 9.0 PT 26.0 H INR 2.7 H Sodium 141 Potassium 5.7 H Chloride 108 H Carbon Dioxide 30 Anion Gap 3.0 BUN 27 H Creatinine 1.82 H Est Cr Clr Drug Dosing 47.6 Est GFR ( Amer) 44.2 Est GFR (Non-Af Amer) 38.1 BUN/Creatinine Ratio 14.9 Glucose 139 H POC Glucose Estimat Average Glucose Hemoglobin A1c Calcium 8.6 10/27/18 07:52 WBC RBC Hgb Hct MCV MCH MCHC RDW Std Deviation RDW Coeff of Guy Plt Count MPV PT INR Sodium Potassium Chloride Carbon Dioxide Anion Gap BUN Creatinine Est Cr Clr Drug Dosing Est GFR ( Amer) Est GFR (Non-Af Amer) BUN/Creatinine Ratio Glucose POC Glucose 132 H Estimat Average Glucose Hemoglobin A1c Calcium PG Care Time/CCT Total # of Minutes Spent Total Time Spent with Patient: Total time spent is greater than 50% in coordination of care (as documented) at patient's floor/unit and/or counseling patient:
[2018-10-27 15:53] LABS: BUN Creatinine Ratio 16.4 (10-20); Calcium 8.9 mg/dl (8.5-10.1); Creatinine Clr Calc Pharmacy 50.6 ml/min; Est GFR (African American) 47.6; Est GFR (Non-African American) 41.1; Potassium 5.6 mmol/L (3.5-5.1)
[2018-10-27] MEDS ORDERED: WARFARIN SOD 4 MG TAB PO SCH (16:00)
[2018-10-27] MEDS ORDERED: WARFARIN SOD 3 MG TAB PO SCH (16:00)
[2018-10-27] MEDS ORDERED: GLUCOSE 10 TABS/TUBE PO PRN (16:03)
[2018-10-27] MEDS ORDERED: GLUCAGON FOR INJ 1 MG VIAL SQ PRN (16:03)
[2018-10-27] MEDS ORDERED: CARBOHYDRATES FOR HYPOGLYCEMIA PO PRN (16:03)
[2018-10-27] MEDS ORDERED: GLUCOSE 40% GEL 15 GM TUBE PO PRN (16:03)
[2018-10-27] MEDS ORDERED: DEXTROSE 50% 50 ML SYRINGE IV PRN (16:03)
--- NOTE | 2018-10-27 16:07 | Discharge Summary ---
Date of Service October 27, 2018 Admission HPI Per Admitting Provider is a 63-year-old gentleman with a history of type 2 diabetes mellitus, paroxysmal atrial fibrillation, gout, hypothyroidism, asthma, diastolic CHF, diverticulitis s/p recent bowel resection, CKD stage III, obstructive sleep apnea who presents to [facility] due to an outpatient potassium level of 6.7. The patient states that he had a bowel resection for diverticulitis at the end of September in [place], and postoperatively was found to have hyperkalemia. He saw his primary care provider today as a hospital follow-up, who ordered routine labs to recheck his potassium level. Mr. Johnson was then instructed to come to the hospital due to a potassium level of 6.7. He is unsure of why his potassium level is so high. He states his only recent medication change was a switch from glimepiride to glipizide. He reports that he has only had high potassium levels this last month, and has not had problems with this in the past. He states he feels well. He reports that his incision sites are healing well, and is not taking any pain medication for this. He denies any fever, chills, nausea, vomiting, diarrhea. Admission Exam Per Admitting Provider Constitutional: WD/WN, vitals as above cooperative and comfortable Eyes: PERRL, conjunctivae normal, anicteric sclerae ENMT: external ear and nose normal, oropharynx normal Respiratory: normal respiratory effort, lungs clear to auscultation Cardiovascular: RRR, no murmur, no edema Gastrointestinal (Abdomen): normal bowel sounds, soft, nontender, no hepatosplenomegaly Percussion/Palpation: + abdomen tender (Mildly tender over the right-sided abdomen, over incision site) and abdomen soft; no guarding and abdomen not rigid Well-healing incisions from prior laparoscopic surgery Skin: no rashes, warm and dry Principal Diagnosis Hyperkalemia, CKD Discharge Exam General: Resting comfortably HEENT: NC/AT; PERRLA with EOMI; [place] conjunctiva, MMM. No erythema of posterior pharynx Neck: Supple and nontender Cardiac: RRR Lungs: on room air; CTA bilaterally Abdomen: Bowel normoactive X 4; Nontender to palpation Extremities: Warm. No edema present Neuro: No focal weakness Skin: No rash; purple discoloration on bilat LE, c/w chronic venous insufficiency. Discharge Data Allergies Allergy/AdvReac Type Severity Reaction Status Date / Time furosemide [From Lasix] AdvReac Rash Verified 10/25/18 21:26 Consultations 10/25/18 20:54 ED Decision to Admit Stat 10/26/18 09:19 Consult Nephrology Routine Hospital Course (1) Hyperkalemia: Has been a chronic issue over the last few months; ACEI was d/c'ed as outpatient, not currently on agents at home leading to lab work abnormality. K level increased throughout this admission but improved with treatment. EKG negative for acute abnormalities, including peaked T waves. K level was 5.6 on discharge. Per review of outpatient records, recent hospitalization in [place] for bowel resection was complicated by GAYATRI. Elevated potassium was treated with Gudelia exalate, and home Lisinopril discontinued per nephrology's recommendations. Nephrology consulted, appreciate input. Will not discharge on Lasix due to allergy. Script was provided for labs in 1 week. Will need to follow up with nephro and PCP over next 1-2 weeks. (2) Acute respiratory failure with hypoxia: Required 2L intermittently, now weaned to room air. (3) CKD (chronic kidney disease), stage III: Renally dosed all meds. (4) Diverticulitis of colon: S/p drain placement and bowel resection due to diverticulitis w/abscess at [facility] on 10/10/18. Follow as outpatient. (5) Chronic diastolic (congestive) heart failure: Monitored net I/O's and daily weights. Appears well compensated, euvolemic. Caution with IV fluids -- no recent echo to evaluate underlying heart function. (6) Chronic low back pain: Continued pain meds prn. (7) Hypertension: Continued Amlodipine 5 mg qAM and Metoprolol (decreased to 12.5 mg BID) (8) Hypothyroidism: Continued home Synthroid 75 mcg daily. TSH is 2.85. (9) Paroxysmal atrial flutter: Continued home amiodarone and metoprolol Held Warfarin on 10/26 due to supratherapeutic INR, resumed at 4 mg PO daily on 10/27. Instructed to take 4 mg PO daily as outpatient and have follow up PT/INR level as outpatient on 10/31/18.' Will need to discuss discontinuing Amiodarone vs. decreasing dose with Dr. Schuler in setting of 1st degree AV block and bradycardia. Did decrease Metoprolol to 1 2.5 mg BID due to bradycardia. (10) Diabetes mellitus type 2, uncontrolled: Held home glipizide (recently transitioned from glimepiride), metformin and Januvia Hgb A1C was 7.6. Will convert Glipizide to once daily and continue Januvia (was hypoglycemic at admission). D/c Metformin due to CKD. (11) Hypercholesterolemia: Not currently on statin agent. (12) Obstructive sleep apnea: CPAP qhs. (13) DVT prophylaxis: SCDs; Heparin q12hr. Stable for discharge on 10/27/18. Total Time Total Time Spent Total Time Spent (In Minutes): >30 minutes Total Time Includes: Examination of the Patient, Discharge Planning, Medication Reconciliation, Communication With Other Providers and Other Discharge Plan Discharge Items Patient Disposition: Home - Self-Care Reason For Visit: HYPERKALEMIA Discharge Diagnosis: Hyperkalemia Condition on Discharge: Good Activity: As commented below Exercise/Sports: Gradually increase as tolerated Non-emergency contact: Primary Care Provider and Vice President Talent Management Call non-emergency contact if: you have any medication questions, your symptoms worsen, your pain is not controlled, your pain is worsening, your pain is unusual for you, your pain is concerning for you and you have a fever Follow-up/Referrals: Guillermo Hopkins MD [Physician] - 11/09/18 1:00 pm (Please, follow up at [facility] Nephrology Office with Dr. Hopkins on WednesdayNovember 09 at 1:00 pm. *If you need to change this appointment, call the office at [phone].) Jf Taylor III, MD [Primary Care Provider] - 11/04/18 11:00 am (Please, follow up at Dr. Taylor's office with his assistant director of admissions, Shea Nix, on WednesdayNovember 04 at 11:00 am. *If you need to change this appointment, call the office at [phone].) Diet: Low Potassium (2gm) Diet Comment: Low potassium Addtl Attending Provider Instructions: 1. Hyperkalemia in setting of chronic kidney disease * Please continue a low potassium diet at home -- see handout provided at discharge. * Please follow up with primary care physician and fire prevention inspector to discuss treatment of hyperkalemia. * A script was provided for outpatient labs -- please have labs collected on WednesdayOctober 31. Results will be faxed to your PCP. 2. Diverticulitis of colon s/p resection * Please follow up with surgeon as scheduled. 3. A. fib/flutter * Please take Warfarin 6 mg daily at home. * You will need a follow up PT/INR level within the next 5-7 days. Script was provided at discharge. * Metoprolol dose has been decreased from 25 mg to 12.5 mg twice daily. 4. Diabetes Mellitus * Please discontinue Metformin in setting of chronic kidney disease. * Please decrease Glipizide to 10 mg daily (previously on twice daily dosing). * Please continue Januvia as prescribed. * Monitor blood sugar readings with meals and at bedtime -- record all readings and bring document to your next PCP appt. Pending Studies at Discharge: No Stand-Alone Forms: [facility] Medications and DC Order Prescriptions: New metoprolol tartrate 25 mg Tablet 12.5 mg PO BID 30 Days Qty: 30 RF: 0 Continued magnesium oxide 400 mg magnesium tablet 800 mg PO BID Qty: 120 RF: 0 levothyroxine 75 mcg tablet 75 mcg PO QAM RF: 0 amlodipine 5 mg tablet 5 mg PO QAM RF: 0 Januvia 25 mg tablet 25 mg PO DAILY RF: 0 tramadol 50 mg tablet 50 mg PO Q6H PRN (Reason: Pain) RF: 0 amiodarone 200 mg tablet 200 mg PO QAM RF: 0 fluticasone propion-salmeterol [Advair Diskus] 500-50 mcg/dose blister with device 1 inh INHALATION BID PRN (Reason: Shortness Of Breath) RF: 0 Changed glipizide 10 mg tablet 10 mg PO DAILY Qty: 0 RF: 0 Discontinued metoprolol tartrate 50 mg tablet 25 mg PO BID Qty: 90 RF: 3 metformin 500 mg tablet 500 mg PO BID RF: 0 No Action prednisone 20 mg tablet 20 mg PO .COMPLEX Qty: 11 RF: 0 warfarin 6 mg tablet 6 mg PO DAILY Qty: 90 RF: 3 Discharge Orders: Discharge Order (Routine); Ordered 10/27/18 Ordered By: Doris Holly Admission Data Admit Date/Time: 10/25/18 21:22 Attending Provider: Doris Holly Admit Provider: Slick Aguilera Primary Care Provider: Jf Taylor III Other Providers: Kamran Garces ; Lebron Sol Other Interventions: Discharge Summary Assessment (RN) Last Done: 10/27/18 17:19 DC Date/Time DO NOT enter until pt leaves facility: 10/27/18 18:31 Supervising Physician Co-Signing Physician Notes PA Supervision Note: I personally saw and examined the patient. I verified all montero points and agree with CRISTOPHER Tolbert with the following exceptions and/or additions: Pt feeling fine, no complaints. Vitals reviewed, with sinus belinda Reg rhythm, bradycardic, no mgr CTAB no wcr Abd soft NT ND Ext no edema Stable for dc to home, K+ levels have improved Close f/u with labs, PCP, Nephrology
[2018-10-27] MEDS ORDERED: INSULIN ASPART 100 UNITS/ML 3 ML PEN SC SCH (16:30)
[2018-10-27] MEDS ORDERED: METOPROLOL TARTRATE 25 MG TAB PO SCH (21:00)
[2018-10-28] MEDS ORDERED: AMIODARONE 200 MG TAB PO SCH ×2 (09:00)
== END 2018-10-27 18:31 | disposition home or self-care (01) | DRG 640 ==
LOC: ED 19:18 → SUATTDRO 21:22 → 2W 21:22

== ENCOUNTER 2020-07-05 13:24 | Inpatient (IN) ==
--- NOTE | 2020-07-05 13:53 | Emergency Department Note ---
Impression & Plan Acute hyperkalemia ED Provider Note NAME: WALT BARNEY AGE: 65 SEX: M : 1955 ARRIVES VIA: Walk-In INFORMANT: patient, ED PROVIDER(S): Herber Mondragon MD Chief Complaint: Abnormal blood work, outpatient referral HPI: Patient does present with concern for abnormal blood work and reportedly had an elevated potassium of 6.1. The patient states that he denies any recent change in diet. Patient states he has had good urine output. The patient has no abdominal pain nausea vomiting. Patient denies any chest pains or shortness of breath. Patient has not had an increase in potatoes and bananas at home. The patient states that he is been compliant with his medications. Patient denies any fevers or chills. Patient states that he has not had any issues with potassium before. Patient does relate he has a history of some chronic kidney disease. ROS: See HPI for pertinent positives and negatives. A total of 10 systems were reviewed and otherwise negative. Past medical history: See below Surgical history: See below Social history: See below Physical Exam: GENERAL: Wearing glasses and a mask. NAD, non-toxic. EYE EXAM: Normal conjunctiva. PERRL, no anisocoria and EOM's grossly intact w/o pain. NECK: Supple, no nuchal rigidity, no adenopathy, non-tender. No signs of meningismus. LUNGS: Clear to auscultation. Normal chest wall mechanics. HEART: NSR, no MRG. ABDOMEN: Abdomen soft, non-tender, normo-active bowel sounds, no masses, no rebound or guarding. BACK: No CVA TTP. SKIN: No rashes and no bruising. UPPER EXTREMITIES: Upper extremities are grossly normal. LOWER EXTREMITIES: Grossly normal, no edema. NEURO EXAM: A&O x3, cranial nerves II-XII grossly intact, normal speech, moves all 4 extremities on command w/o issue. Differential diagnoses: Infection, dehydration, metabolic abnormality, hypo/hyperglycemia, electrolyte disturbance, anemia, hypoxia, cardiac sources, intracerebral event, toxicologic, neurologic, as well as other pathologies. Course: Patient was seen and evaluated the bedside. Full history physical exam was performed. EKG interpreted by me Possible ectopic atrial rhythm, right axis deviation, wide QRS. This is an acute change from comparison EKG completed October 26, 2018 which showed sinus bradycardia. The patient's QRS is unchanged from the prior. The patient did have an EKG completed earlier this morning which showed possible variable block atrial flutter. Imaging Studies: See below Cardiac monitoring: An order was placed for continuous cardiac monitoring. The monitor shows a rate of 89 with regular rhythm. MDM: Patient did present with concern for abnormal potassium. This was ordered as a repeat along with kidney function. The patient's kidney function is unremarkable and unchanged from prior. The patient's potassium is persistently elevated. The patient was ordered dextrose, Bumex, insulin D50. Patient was also ordered albuterol. The patient did have an episode of hypoglycemia but was given juice and crackers. I did speak with with the on-call hospitalist Dr. Croft and the patient was admitted to the medicine service. I did spoke with Dr. Ozuna of nephrology who did recommend the current therapy for medical management. Critical Care: I have personally spent 42 minutes of critical care time in direct management of this patient. This includes bedside care, interpretation of diagnostic studies, and testing, discussion with consultants, patient, and family members, and other require inpatient management activities. This 42 minutes is in excess of all separately billable procedures. Past Med/Surg History Medical History Anticoagulant long-term use Asthma USES INHALER PRN Atrial fibrillation follows with Dr. Schuler Chronic diastolic (congestive) heart failure CKD (chronic kidney disease) stage 3, GFR 30-59 ml/min FOLLOWED BY DR. 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" History of low anterior resection of rectum (10/10/18) C, lap/hand assisted, with colpoprostomy, flex sig and umbilical hernia repair History of strabismus surgery bilt History of surgery penile implant History of tooth extraction Family History Father Diabetes Sister Diabetes Brother Diabetes Prostate cancer Mother Hypertension Thrombocytopenia Stomach cancer Grandmother Myocardial infarction Hypertension Denies family history of Ovarian cancer Breast cancer Colorectal cancer Social History Smoking Status: Light tobacco smoker Tobacco Type: Smokeless Tobacco (Dip or Chew) Age Started Using Tobacco: 14; Age Quit Using Tobacco: 28; packs per day: 1; Years Smoked: 15; Second Hand Exposure: No; Hx Alcohol Use: Yes Alcohol type: beer Alcohol Intake Frequency Comment: very rarely Hx Substance Use: No Preferred Language: Mauritian Communication Ability: Effective Visual Impairment: No Limitations Hearing Ability: Hard of Hearing Adjunct Political Science Instructor Required: No Beliefs That Will Affect Care: None marital status: Current Living Situation: Alone current occupational status: employed current occupation: Works at [employer] Safe at Home: Yes Childhood Exposure to Second-Hand Smoke: Yes Dental Care, Regularly: No Physical Activity Frequency: 5-6 Times per Week Seatbelt Use: always Sunscreen Use: Yes Assistive Devices: CPAP, Glasses and Oxygen - at Night Allergies Allergies Allergy/AdvReac Type Severity Reaction Status Date / Time furosemide [From Lasix] Allergy Mild Rash Verified 07/05/20 15:05 Home Meds Home Medications Medication Instructions Recorded Confirmed blood-glucose meter #1 ea 05/31/19 04/25/20 lancets 33 gauge #100 ea 05/31/19 04/25/20 levothyroxine 75 mcg PO QAM 03/04/20 07/05/20 Previous Rx's Medication Instructions Recorded magnesium oxide 800 mg PO BID #120 tab 08/08/18 bumetanide 1 mg tablet 1 mg PO DAILY #30 tab 06/15/19 pen needle, diabetic 32 gauge x #50 ea 01/18/20" blood-glucose meter #1 ea 01/29/20 amlodipine 5 mg tablet 5 mg PO QAM #90 tab 02/02/20 fluticasone 500 mcg-salmeterol 50 1 inh INHALATION BID PRN #3 inhaler 02/12/20 mcg/dose blistr powdr for inhalation glipizide 10 mg tablet 10 mg PO BID #180 tab 03/07/20 ergocalciferol (vitamin D2) 1,250 1,250 mcg PO .COMPLEX #12 cap 04/04/20 mcg (50,000 unit) capsule insulin glargine 100 unit/mL (3 See Rx Instructions SUBCUT BID #30 05/15/20 mL) subcutaneous pen ml rivaroxaban 15 mg tablet 15 mg PO QPM #90 tab 05/20/20 blood sugar diagnostic #300 ea 06/25/20 Results & Data (ED) Vital Signs Vital Signs - 24 hr 07/05/20 13:27 07/05/20 14:09 07/05/20 14:12 Temperature 36.8 C Temperature Source Temporal Artery Scan Pulse Rate 93 H 95 H 91 H Pulse Rate [Right Finger] Pulse Rate from SpO2 Sensor 95 H Pulse Rhythm Regular Respiratory Rate 18 16 16 Respiratory Effort / Characteristics Non-Labored Spontaneous Respiratory Depth Normal Respiratory Pattern Regular Blood Pressure 177/106 H 150/99 H Blood Pressure Mean 129 116 Blood Pressure Position Sitting Pulse Oximetry 97 93 95 Oxygen Delivery Method Room Air Room Air Sepsis Recent Fever Within 48 Hours No Sepsis New/Unexplained Change in Mental Status N/A Sepsis Action Taken by Nursing No Action Required 07/05/20 15:43 07/05/20 15:50 07/05/20 16:00 Temperature Temperature Source Pulse Rate 77 89 Pulse Rate [Right Finger] 88 Pulse Rate from SpO2 Sensor 82 98 H Pulse Rhythm Respiratory Rate 20 18 22 Respiratory Effort / Characteristics Non-Labored Spontaneous Respiratory Depth Respiratory Pattern Blood Pressure 115/79 147/103 H Blood Pressure Mean 91 117 Blood Pressure Position Pulse Oximetry 96 95 91 Oxygen Delivery Method Room Air Sepsis Recent Fever Within 48 Hours Sepsis New/Unexplained Change in Mental Status Sepsis Action Taken by Shelter Medications Current Medication List: was personally reviewed by me Laboratory Data Attestation: I reviewed the patient's lab results. Result diagrams: 07/05/20 14:09 07/05/20 14:09 Lab Results 07/05/20 07/05/20 07/05/20 Range/Units 14:09 14:09 15:10 WBC 5.97 (4.8-10.8) K/uL RBC 5.61 (4.7-6.1) M/uL Hgb 16.2 (14.0-18.0) g/dL Hct 48.2 (42-52) % MCV 85.9 (80-100) fL MCH 28.9 (25-34) pg MCHC 33.6 (32-36) g/dL RDW Std Deviation 43.2 (36.4-46.3) fL RDW Coeff of Guy 13.9 (11.5-14.5) % Plt Count 104 L (130-400) K/uL MPV 11.4 H (7.4-10.4) fL Immature Gran % (Auto) 1.0 % Neut % (Auto) 79.0 % Lymph % (Auto) 10.7 % [place] % (Auto) 8.0 % Eos % (Auto) 1.0 % Baso % (Auto) 0.3 % Neut # (Auto) 4.71 (1.4-6.5) K/uL Lymph # (Auto) 0.64 L (1.2-3.4) K/uL [place] # (Auto) 0.48 (0.11-0.59) K/uL Eos # (Auto) 0.06 (0-0.5) K/uL Baso # (Auto) 0.02 (0-0.2) K/uL Immature Gran # (Auto) 0.06 H (0.00-0.02) K/uL Sodium 137 (136-145) mmol/L Potassium 6.1 H* (3.5-5.1) mmol/L Chloride 105 (98-107) mmol/L Carbon Dioxide 27 (21-32) mmol/L Anion Gap 6.0 (3-11) BUN 44 H (7-18) mg/dl Creatinine 1.63 H (0.6-1.4) mg/dl Est Cr Clr Drug Dosing 52.8 ml/min Est GFR ( Amer) 49.8 ml/min Est GFR (Non-Af Amer) 43.0 ml/min BUN/Creatinine Ratio 26.7 H (10-20) Glucose 187 H (70-99) mg/dl POC Glucose (70-99) mg/dl Calcium 9.3 (8.5-10.1) mg/dl Total Bilirubin 0.5 (0.2-1) mg/dl AST 18 (15-37) U/L ALT 24 (12-78) U/L Alkaline Phosphatase 59 (45-117) U/L Total Creatine Kinase 239 (39-308) U/L Total Protein 7.6 (6.4-8.2) gm/dl Albumin 3.9 (3.4-5.0) gm/dl Globulin 3.7 (2.5-4.0) gm/dl Albumin/Globulin Ratio 1.1 (0.9-2) TSH 2.020 (0.300-4.500) uIu/ml COVID-19 Eval Order Covid19 at [facility] SARS-CoV-2 (PCR) (Negative) 07/05/20 07/05/20 Range/Units 15:10 16:40 WBC (4.8-10.8) K/uL RBC (4.7-6.1) M/uL Hgb (14.0-18.0) g/dL Hct (42-52) % MCV (80-100) fL MCH (25-34) pg MCHC (32-36) g/dL RDW Std Deviation (36.4-46.3) fL RDW Coeff of Guy (11.5-14.5) % Plt Count (130-400) K/uL MPV (7.4-10.4) fL Immature Gran % (Auto) % Neut % (Auto) % Lymph % (Auto) % [place] % (Auto) % Eos % (Auto) % Baso % (Auto) % Neut # (Auto) (1.4-6.5) K/uL Lymph # (Auto) (1.2-3.4) K/uL [place] # (Auto) (0.11-0.59) K/uL Eos # (Auto) (0-0.5) K/uL Baso # (Auto) (0-0.2) K/uL Immature Gran # (Auto) (0.00-0.02) K/uL Sodium (136-145) mmol/L Potassium (3.5-5.1) mmol/L Chloride (98-107) mmol/L Carbon Dioxide (21-32) mmol/L Anion Gap (3-11) BUN (7-18) mg/dl Creatinine (0.6-1.4) mg/dl Est Cr Clr Drug Dosing ml/min Est GFR ( Amer) ml/min Est GFR (Non-Af Amer) ml/min BUN/Creatinine Ratio (10-20) Glucose (70-99) mg/dl POC Glucose 136 H (70-99) mg/dl Calcium (8.5-10.1) mg/dl Total Bilirubin (0.2-1) mg/dl AST (15-37) U/L ALT (12-78) U/L Alkaline Phosphatase (45-117) U/L Total Creatine Kinase (39-308) U/L Total Protein (6.4-8.2) gm/dl Albumin (3.4-5.0) gm/dl Globulin (2.5-4.0) gm/dl Albumin/Globulin Ratio (0.9-2) TSH (0.300-4.500) uIu/ml COVID-19 Eval Order SARS-CoV-2 (PCR) NEGATIVE (Negative) Administered Medications Discontinued Medications Albuterol (Albuterol 0.083% Nebu Soln 3 Ml Vial) 10 mg NEB NOW STA Stop: 07/05/20 15:22 Last Admin: 07/05/20 15:50 Dose: 10 mg Documented by: [id number] Dextrose (Dextrose 50% 50 Ml Syringe) 50 ml IV NOW ONE Stop: 07/05/20 15:22 Last Admin: 07/05/20 16:18 Dose: 50 ml Documented by: [id number] Furosemide (Furosemide 40 Mg/4 Ml Vial) Confirm Administered Dose 40 mg IV .STK- MED ONE Stop: 07/05/20 16:01 Last Admin: 07/05/20 16:17 Dose: Not Given Documented by: [id number] Bumetanide 1 mg/ Syringe 4 mls @ 4 mls/min IV NOW STA Stop: 07/05/20 16:07 Last Admin: 07/05/20 16:28 Dose: 4 mls/min Documented by: [id number] Insulin Human Regular (Novolin-R Insulin Per Unit Charge) 10 units IV NOW STA Stop: 07/05/20 15:22 Last Admin: 07/05/20 16:20 Dose: 10 units Documented by: [id number] Cosigned by: [id number] Sodium Polystyrene Sulfonate (Sodium Polystyrene Sulfonate 15g/60ml Susp) 45 gm PO NOW STA Stop: 07/05/20 15:22 Last Admin: 07/05/20 16:17 Dose: Not Given Documented by: [id number] Imaging Data Radiologist's Impression: Chest X-Ray 05/21/21 13:49 XR chest 1V portable HISTORY: weakness COMPARISON: Chest 08/09/2013. FINDINGS: No pneumothorax. No pleural effusions. The heart remains mildly enlarged. No evidence for pulmonary edema. The right lung is clear. Patchy peripheral density within the left midlung zone. This may represent scarring but has progressed compared to the prior studies. Therefore, superimposed pneumonia cannot be excluded. IMPRESSION: Patchy peripheral density within the left midlung zone. This may represent scarring but has slightly progressed compared to the prior studies. Therefore, a superimposed pneumonia cannot be excluded. Follow-up chest x-ray in one month is recommended to evaluate for stability/resolution. ACT 112: Positive. There are findings on this exam that require communication between the performing entity and the patient following Patient Test Result Information Act ([place] Act 112) guidelines. Electronically signed by: Sumanth Hallman M.D. 07/05/2020 2:23 PM Discharge Plan Visit Data Chief Complaint: Abnormal Labs/Diagnostic Testing Stated Complaint: HIGH POTASSIUM ED Provider: Herber Mondragon Discharge Problem: Acute hyperkalemia Forms Stand Alone Forms: [facility] [place] [employer] Prescriptions Prescriptions: No Action (DME) pen needle, diabetic [AboutTime Pen Needle] 32 gauge x 5/32" needle See Rx Instructions .ROUTE .MEDSUPPLY Qty: 50 RF: 0 (DME) blood-glucose meter [OneTouch Ultra2 Meter] Misc See Rx Instructions .ROUTE .MEDSUPPLY Qty: 1 RF: 0 amlodipine 5 mg tablet 5 mg PO QAM Qty: 90 RF: 3 glipizide 10 mg tablet 10 mg PO BID Qty: 180 RF: 3 ergocalciferol (vitamin D2) 1,250 mcg (50,000 unit) capsule 1,250 mcg PO .COMPLEX Qty: 12 RF: 0 Lantus Solostar U-100 Insulin 100 unit/mL (3 mL) insulin pen See Rx Instructions subcut BID Qty: 30 RF: 3 Xarelto 15 mg tablet 15 mg PO QPM Qty: 90 RF: 3 (DME) OneTouch Ultra Blue Test Strip Strip See Rx Instructions .ROUTE .MEDSUPPLY Qty: 300 RF: 3 fluticasone propion-salmeterol [Advair Diskus] 500-50 mcg/dose blister with device 1 inh INHALATION BID PRN (Reason: Shortness Of Breath) Qty: 3 RF: 3 bumetanide 1 mg tablet 1 mg PO DAILY Qty: 30 RF: 5 (DME) lancets 33 gauge misc See Rx Instructions gauge .ROUTE .MEDSUPPLY Qty: 100 RF: 0 (DME) blood-glucose meter Kit See Rx Instructions ea .ROUTE .MEDSUPPLY Qty: 1 RF: 0 magnesium oxide 400 mg magnesium tablet 800 mg PO BID Qty: 120 RF: 0 levothyroxine 75 mcg tablet 75 mcg PO QAM RF: 0
[2020-07-05 14:16] LABS: Basophils # (auto) 0.02 K/uL (0-0.2); Basophils % (auto) 0.3 %; Eosinophils # (auto) 0.06 K/uL (0-0.5); Hematocrit (blood only) 48.2 % (42-52); Hemoglobin 16.2 g/dL (14.0-18.0); Immature Granulocytes # (auto) 0.06 K/uL (0.00-0.02); Lymphocytes # (auto) 0.64 K/uL (1.2-3.4); Lymphocytes % (auto) 10.7 %; Mean Corpuscular Hemoglobin 28.9 pg (25-34); Mean Corpuscular Hgb Conc 33.6 g/dL (32-36); Mean Corpuscular Volume 85.9 fL (80-100); Mean Platelet Volume 11.4 fL (7.4-10.4); Monocytes # (auto) 0.48 K/uL (0.11-0.59); Neutrophils # (auto) 4.71 K/uL (1.4-6.5); Platelet Count 104 K/uL (130-400); RDW Coefficient of Variation 13.9 % (11.5-14.5); RDW Standard Deviation 43.2 fL (36.4-46.3); Red Blood Count 5.61 M/uL (4.7-6.1); White Blood Count 5.97 K/uL (4.8-10.8)
--- NOTE | 2020-07-05 14:24 | XRay Report ---
XR chest 1V portable HISTORY: weakness COMPARISON: Chest 08/09/2013. FINDINGS: No pneumothorax. No pleural effusions. The heart remains mildly enlarged. No evidence for p ulmonary edema. The right lung is clear. Patchy peripheral density within the left midlung zone. This may represent scarring but has progressed compared to the prior studies. Therefore, superimposed pne umonia cannot be excluded. IMPRESSION: Patchy peripheral density within the left midlung zone. This may represent scarring but has slightly progressed compared to the prior studies. Therefore, a superimposed pneumonia cannot be excluded. Fol low-up chest x-ray in one month is recommended to evaluate for stability/resolution. ACT 112: Positive. There are findings on this exam that require communication between the performing entity and the patient following Patient Test Result Information Act ([place] Act 112) guidelines. Electronically signed by: Sumanth Hallman M.D. 07/05/2020 2:23 PM
[2020-07-05 14:52] LABS: Albumin Globulin Ratio 1.1 (0.9-2); Albumin Level 3.9 gm/dl (3.4-5.0); BUN Creatinine Ratio 26.7 (10-20); Bilirubin,Total 0.5 mg/dl (0.2-1); Calcium 9.3 mg/dl (8.5-10.1); Creatinine Clr Calc Pharmacy 52.8 ml/min; Est GFR (African American) 49.8 ml/min; Globulin 3.7 gm/dl (2.5-4.0); Thyroid Stimulating Hormone 2.02 uIu/ml (0.300-4.500); Total Protein 7.6 gm/dl (6.4-8.2)
[2020-07-05 15:10] LABS: Potassium 6.1 mmol/L (3.5-5.1)
[2020-07-05] MEDS ORDERED: NovoLIN-R INSULIN PER UNIT CHARGE IV STA (15:21)
[2020-07-05] MEDS ORDERED: ALBUTEROL 0.083% NEBU SOLN 3 ML VIAL NEB STA (15:21)
[2020-07-05] MEDS ORDERED: DEXTROSE 50% 50 ML SYRINGE IV ONE (15:21)
[2020-07-05] MEDS ORDERED: SODIUM POLYSTYRENE SULFONATE 15G/60ML SUSP PO STA (15:21)
[2020-07-05] MEDS ORDERED: FUROSEMIDE 40 MG/4 ML VIAL IV ONE (16:00)
[2020-07-05] MEDS ORDERED: BUMETANIDE 1 MG in SYRINGE 0 ML IV STA (16:06)
--- NOTE | 2020-07-05 16:45 | History & Physical Report ---
Date of Service July 05, 2020 Assessment & Plan (1) Hyperkalemia: Acute- again this time dietary indiscretion. His glucose is elevated at this time, but not severe. No evidence of hemolysis on lab draw, normal HGB/HCT, normal HCO3, no worsening of his CKD and no new medications added. - Patient aggressively treated in the ED--- he should respond well with kaliuresis - UA pending to ensure no hematuria or infection - Glucose elevated as he did not take insulin this morning, tightening up his glucose control as well should help with elevated K. - HGB a1c on routine today 8.7 which is down from his previous 10 - Follow BMP tonight and in the morning - To prevent further diet increase, place on renal carb consistent diet for today and tomorrow (2) CKD (chronic kidney disease), stage III: As above, MANAGER COMMODITIES with no acute change - renal dose medications - avoid nephrotoxic medications, and if needed minimize exposure time (3) Hypertension: Appears decently well controlled with outpatient visits - continue home regimen (4) Paroxysmal atrial flutter: Rate controlled without medication, no acute needs - Continue Xarelto (5) Chronic diastolic (congestive) heart failure: As above- continue bumex 1 daily and amlodipine 5mg qam (6) AARON (obstructive sleep apnea): CPAP 14 cm H2O at night, with 1-2 L oxygen bled in (7) Uncontrolled type 2 diabetes mellitus with insulin therapy: As above, transition to SSI in house 35 CF with 1:15 ratio - HGB a1c improved on routine check today (8) Hypothyroidism: Continue home Synthroid 75mcg daily (9) Hypercholesterolemia: (10) Asthma: No acute needs although he is not on JEVON- he has gotten his COVID vaccines - Continue fluticasone/salmeterol inh History of Present Illness Primary Care Provider: Jf Taylor MD 65 YOM with past medical history of Afib(Xarelto), DM2, CKD III, HLD, HTN, Hypothyroidism, AARON. Patient with CKD III secondary to diabetic nephropathy and hypertension. He has previous admissions for hyperkalemia with dietary indiscretions- tomatoes, fruit juices and V8. Today he comes in for K 6.1 on routine lab draw. He endorses this time eating potatoes and tree days of fruit salad. He has no ectopy or changes on ECG and his renal function is at baseline to include normal HCO3. He took his medications this morning except his insulin. He was evaluated in the ED and received Albuterol nebulizer, 10 units R Insulin with amp D50, and 1 mg Bumex. Patient will be admitted for monitoring of potassium. Allergies Allergy/AdvReac Type Severity Reaction Status Date / Time furosemide [From Lasix] Allergy Mild Rash Verified 07/05/20 15:05 Home Medications Medication Instructions Recorded Confirmed Type magnesium oxide 800 mg PO BID #120 tab 08/08/18 07/05/20 Rx blood-glucose meter #1 ea 05/31/19 04/25/20 History lancets 33 gauge #100 ea 05/31/19 04/25/20 History bumetanide 1 mg tablet 1 mg PO DAILY #30 tab 06/15/19 07/05/20 Rx pen needle, diabetic 32 gauge x #50 ea 01/18/20 04/25/20 Rx 5/32" blood-glucose meter #1 ea 01/29/20 04/25/20 Rx amlodipine 5 mg tablet 5 mg PO QAM #90 tab 02/02/20 07/05/20 Rx fluticasone 500 mcg-salmeterol 50 1 inh INHALATION BID PRN #3 inhaler 02/12/20 07/05/20 Rx mcg/dose blistr powdr for inhalation levothyroxine 75 mcg PO QAM 03/04/20 07/05/20 History glipizide 10 mg tablet 10 mg PO BID #180 tab 03/07/20 07/05/20 Rx ergocalciferol (vitamin D2) 1,250 1,250 mcg PO .COMPLEX #12 cap 04/04/20 07/05/20 Rx mcg (50,000 unit) capsule insulin glargine 100 unit/mL (3 See Rx Instructions SUBCUT BID #30 05/15/20 07/05/20 Rx mL) subcutaneous pen ml rivaroxaban 15 mg tablet 15 mg PO QPM #90 tab 05/20/20 07/05/20 Rx blood sugar diagnostic #300 ea 06/25/20 Rx Past Med/Surg History Medical History Anticoagulant long-term use Asthma USES INHALER PRN Atrial fibrillation follows with Dr. Schuler Chronic diastolic (congestive) heart failure CKD (chronic kidney disease) stage 3, GFR 30-59 ml/min FOLLOWED BY DR. 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" History of low anterior resection of rectum (10/10/18) [facility], lap/hand assisted, with colpoprostomy, flex sig and umbilical hernia repair History of strabismus surgery bilt History of surgery penile implant History of tooth extraction Family History Father Diabetes Sister Diabetes Brother Diabetes Prostate cancer Mother Hypertension Thrombocytopenia Stomach cancer Grandmother Myocardial infarction Hypertension Denies family history of Ovarian cancer Breast cancer Colorectal cancer Social History Smoking Status: Light tobacco smoker Tobacco Type: Smokeless Tobacco (Dip or Chew) Age Started Using Tobacco: 14; Age Quit Using Tobacco: 28; packs per day: 1; Years Smoked: 15; Second Hand Exposure: No; Hx Alcohol Use: Yes Alcohol type: beer Alcohol Intake Frequency Comment: very rarely Hx Substance Use: No Preferred Language: Latvian Communication Ability: Effective Visual Impairment: No Limitations Hearing Ability: Hard of Hearing Fuel Injection Servicer Required: No Beliefs That Will Affect Care: None marital status: Current Living Situation: Alone current occupational status: employed current occupation: Works at [employer] Safe at Home: Yes Childhood Exposure to Second-Hand Smoke: Yes Dental Care, Regularly: No Physical Activity Frequency: 5-6 Times per Week Seatbelt Use: always Sunscreen Use: Yes Assistive Devices: CPAP, Glasses and Oxygen - at Night Review of Systems Review of Systems: REVIEW OF SYSTEMS: Constitutional: No fever, sweats or chills Eyes: No diplopia, no worsening or blurred vision ENT: normal hearing, no trouble swallowing Respiratory: No cough, sputum, dyspnea at rest or on exertion Cardiovascular: No chest pain, tightness or palpitations Abdomen: No pain, nausea, vomiting, diarrhea or constipation Musculoskeletal: No joint pain, calf pain, swelling Neurologic: No weakness, numbness/tingling, or balance problems Psychiatric: No anxiety or depression Skin: No rash or itch Physical Exam Physical Exam: PHYSICAL EXAM: General: awake, alert, no apparent distress Head: Normocephalic, atraumatic ENT: PERRL, EOMI, no pharyngeal exudate, mucous membranes moist Neuro: AAO x 3, speech clear and appropriate, strength intact bilaterally 5/5, sensation intact and equal all extremities and dermatomes, no pronator drift Chest: equal rise and fall of the chest, no accessory muscle use, no heaves or thrills, scattered crackles auscultation, on room air, Cardiac: Regular rate and rhythm, telemetry reviewed- slow aflutter, skin warm dry, cap refill <3 seconds, peripheral pulses +2 no JVD, no murmur, no edema GI: NABS x 4 quadrants, soft, nontender to palpation, no rebound, guarding or tenderness : Spontaneously voiding, no pain, no CVA tenderness Extremities: Normal inspection, no peripheral edema or erythema, calfs nontender to palpation Psych: Normal mood and affect Skin: no rash or erythema Results & Data Results & Data ([facility]) Vital Signs (Past 12 Hours) Vital Signs Temp Pulse Pulse Resp BP Pulse Ox 07/05/20 16:00 89 22 147/103 H 91 07/05/20 15:50 88 18 95 07/05/20 15:43 77 20 115/79 96 07/05/20 14:12 91 H 16 95 07/05/20 14:09 95 H 16 150/99 H 93 07/05/20 13:27 36.8 C 93 H 18 177/106 H 97 Laboratory Results Abnormal lab results 07/05/20 07/05/20 07/05/20 Range/Units 14:09 14:09 16:40 Plt Count 104 L (130-400) K/uL MPV 11.4 H (7.4-10.4) fL Lymph # (Auto) 0.64 L (1.2-3.4) K/uL Immature Gran # (Auto) 0.06 H (0.00-0.02) K/uL Potassium 6.1 H* (3.5-5.1) mmol/L BUN 44 H (7-18) mg/dl Creatinine 1.63 H (0.6-1.4) mg/dl BUN/Creatinine Ratio 26.7 H (10-20) Glucose 187 H (70-99) mg/dl POC Glucose 136 H (70-99) mg/dl Diagnostic Findings Chest X-Ray 07/05/20 13:49 XR chest 1V portable HISTORY: weakness COMPARISON: Chest 08/09/2013. FINDINGS: No pneumothorax. No pleural effusions. The heart remains mildly enlarged. No evidence for pulmonary edema. The right lung is clear. Patchy peripheral density within the left midlung zone. This may represent scarring but has progressed compared to the prior studies. Therefore, superimposed pneumonia cannot be excluded. IMPRESSION: Patchy peripheral density within the left midlung zone. This may represent scarring but has slightly progressed compared to the prior studies. Therefore, a superimposed pneumonia cannot be excluded. Follow-up chest x-ray in one month is recommended to evaluate for stability/resolution. Electronically signed by: Sumanth Hallman M.D. 07/05/2020 2:23 PM Medications Administered Home Medications magnesium oxide 800 mg PO BID #120 tab 08/08/18 [Rx Confirmed 07/05/20] blood-glucose meter #1 ea 05/31/19 [History Confirmed 04/25/20] lancets 33 gauge #100 ea 05/31/19 [History Confirmed 04/25/20] bumetanide 1 mg tablet 1 mg PO DAILY #30 tab 06/15/19 [Rx Confirmed 07/05/20] pen needle, diabetic 32 gauge x 5/32" #50 ea 01/18/20 [Rx Confirmed 04/25/20] blood-glucose meter #1 ea 01/29/20 [Rx Confirmed 04/25/20] amlodipine 5 mg tablet 5 mg PO QAM #90 tab 02/02/20 [Rx Confirmed 07/05/20] fluticasone 500 mcg-salmeterol 50 mcg/dose blistr powdr for inhalation 1 inh INHALATION BID PRN #3 inhaler 02/12/20 [Rx Confirmed 07/05/20] levothyroxine 75 mcg PO QAM 03/04/20 [History Confirmed 07/05/20] glipizide 10 mg tablet 10 mg PO BID #180 tab 03/07/20 [Rx Confirmed 07/05/20] ergocalciferol (vitamin D2) 1,250 mcg (50,000 unit) capsule 1,250 mcg PO .COMPLEX #12 cap 04/04/20 [Rx Confirmed 07/05/20] insulin glargine 100 unit/mL (3 mL) subcutaneous pen See Rx Instructions SUBCUT BID #30 ml 05/15/20 [Rx Confirmed 07/05/20] rivaroxaban 15 mg tablet 15 mg PO QPM #90 tab 05/20/20 [Rx Confirmed 07/05/20] blood sugar diagnostic #300 ea 06/25/20 [Rx] Discontinued Medications Albuterol (Albuterol 0.083% Nebu Soln 3 Ml Vial) 10 mg NEB NOW STA Stop: 07/05/20 15:22 Last Admin: 07/05/20 15:50 Dose: 10 mg Documented by: [id number] Dextrose (Dextrose 50% 50 Ml Syringe) 50 ml IV NOW ONE Stop: 07/05/20 15:22 Last Admin: 07/05/20 16:18 Dose: 50 ml Documented by: [id number] Furosemide (Furosemide 40 Mg/4 Ml Vial) Confirm Administered Dose 40 mg IV .STK- MED ONE Stop: 07/05/20 16:01 Last Admin: 07/05/20 16:17 Dose: Not Given Documented by: [id number] Bumetanide 1 mg/ Syringe 4 mls @ 4 mls/min IV NOW STA Stop: 07/05/20 16:07 Last Admin: 07/05/20 16:28 Dose: 4 mls/min Documented by: [id number] Insulin Human Regular (Novolin-R Insulin Per Unit Charge) 10 units IV NOW STA Stop: 07/05/20 15:22 Last Admin: 07/05/20 16:20 Dose: 10 units Documented by: [id number] Cosigned by: [id number] Sodium Polystyrene Sulfonate (Sodium Polystyrene Sulfonate 15g/60ml Susp) 45 gm PO NOW STA Stop: 07/05/20 15:22 Last Admin: 07/05/20 16:17 Dose: Not Given Documented by: [id number] ECG Additional Comments: Ectopic atria tachycardia versus atrial flutter with AV block Right axis deviation Abnormal ECG When compared with ECG of 05-JUL-2020 09:33, No change Code Status & VTE Plan Code Status CODE: FULL VTE: SCD's, Xarelto VTE Prophylaxis Plan VTE Prophylaxis will be ordered: Yes Supervising Physician Co-Signing Physician Notes Patient was seen and examined independently I discussed the case with Cayden GREEN I reviewed pertinent past medical social family history and also the plan of care and agree with the plan of care. Patient did have a bout of hypoglycemia while I was in the ER with him. He is in no severe distress he does note dietary indiscretion coupled with his chronic kidney disease stage III may have led to some hyperkalemia remedied in the ER with apical fashion Patient has no other complaints or concerns he does have no acute EKG changes there was some discussion whether he may have had some atrial flutter on initial EKG although this is not completely clear could also be ectopic atrial beats. He is anticoagulated and rate controlled with this no additional therapy will be described Physical exam finds his heart rate the sound to be regular when I listen to him which could also be with if this were atrial flutter his lungs were clear he has peripheral lower extremity hyperpigmentation consistent with venous stasis changes Any exceptions will be noted below PG Care Time/CCT Total # of Minutes Spent Total Time Spent with Patient: Total time spent is greater than 50% in coordination of care (as documented) at patient's floor/unit and/or counseling patient: Coding Level of Care Code 54798 Initial Inpt Care Lvl 2 Diagnoses Hyperkalemia E87.5 CKD (chronic kidney disease), stage III N18.32 Chronic kidney disease stage 3 subtype: stage 3b (GFR 30-44) Hypertension I15.2 Hypertension type: secondary to endocrine disorders Paroxysmal atrial flutter I48.92 Chronic diastolic (congestive) heart failure I50.32 AARON (obstructive sleep apnea) G47.33 Uncontrolled type 2 diabetes mellitus with insulin therapy E11.65; Z79.4 Hypothyroidism E03.9 Hypothyroidism type: unspecified Hypercholesterolemia E78.00 Asthma J45.909 Asthma complication type: unspecified Asthma persistence: unspecified Asthma severity: unspecified severity (1) CKD (chronic kidney disease), stage III Chronic kidney disease stage 3 subtype: stage 3b (GFR 30-44) Qualified Code(s): N18.32 - Chronic kidney disease, stage 3b (2) Hypothyroidism Hypothyroidism type: unspecified Qualified Code(s): E03.9 - Hypothyroidism, unspecified (3) Hypertension Hypertension type: secondary to endocrine disorders Qualified Code(s): I15.2 - Hypertension secondary to endocrine disorders (4) Asthma Asthma complication type: unspecified Asthma persistence: unspecified Asthma severity: unspecified severity Qualified Code(s): J45.909 - Unspecified asthma, uncomplicated
--- NOTE | 2020-07-05 16:57 | Electrocardiogram Report ---
Test Reason : Blood Pressure : / mmHG Vent. Rate : 090 BPM Atrial Rate : 090 BPM P-R Int : 234 ms QRS Dur : 120 ms QT Int : 356 ms P-R-T Axes : -84 173 100 degrees QTc Int : 435 ms Ectopic atril tachycardia versus atrial flutter with AV block Right axis deviation Abnormal ECG When compared with ECG of 05-JUL-2020 09:33, No change Right bundle branch block is no longer Present Confirmed by Gerhard Mccurdy ([id number]) on 07/05/2020 4:57:01 PM Referred By: Confirmed By:Naresh Mccurdy
[2020-07-05] MEDS ORDERED: BUMETANIDE 1 MG in SYRINGE 0 ML IV SCH (17:00)
[2020-07-05] MEDS ORDERED: CARBOHYDRATES FOR HYPOGLYCEMIA PO PRN (19:08)
[2020-07-05] MEDS ORDERED: GLUCOSE 10 TABS/TUBE PO PRN (19:08)
[2020-07-05] MEDS ORDERED: GLUCAGON FOR INJ 1 MG VIAL SQ PRN (19:08)
[2020-07-05] MEDS ORDERED: DEXTROSE 50% 50 ML SYRINGE IV PRN (19:08)
[2020-07-05] MEDS ORDERED: ACETAMINOPHEN 325 MG TAB PO PRN (19:08)
[2020-07-05] MEDS ORDERED: POLYETHYLENE (MIRALAX) 17 GM PACK PO PRN (19:08)
[2020-07-05] MEDS ORDERED: GLUCOSE 40% GEL 15 GM TUBE PO PRN (19:08)
[2020-07-05] MEDS ORDERED: FLUTICASONE/VILANTEROL 200/25MCG 14 PUFFS/INHALER INH PRN (19:14)
[2020-07-05 20:15] LABS: BUN Creatinine Ratio 26.7 (10-20); Calcium 9.2 mg/dl (8.5-10.1); Creatinine Clr Calc Pharmacy 51.9 ml/min; Est GFR (African American) 48.7 ml/min; Potassium 4.7 mmol/L (3.5-5.1)
[2020-07-05] MEDS ORDERED: RIVAROXABAN 15 MG TAB PO SCH (21:00)
[2020-07-05] MEDS: INSULIN ASPART 100 UNITS/ML 3 ML PEN SC SCH (21:23)
[2020-07-05 21:25] LABS: Appearance Urine Clear (Clear); Bacteria Urine Automated Negative (Negative); Bilirubin Urine Negative (Negative); Blood Urine Negative (Negative); Color Urine Yellow; Epithelial Cell Urine Auto 0-5 /lpf (0-5); Glucose Urine UA Negative (Negative); Ketones Urine Negative (Negative); Leukocyte Esterase Urine Negative (Negative); Nitrite Urine Negative (Negative); Protein Urine 1+ (Negative); RBC Urine Automated 0-4 /hpf (0-4); Urobilinogen Urine Negative (Negative); WBC Urine Automated 0 /hpf (0-5)
[2020-07-06] MEDS: LEVOTHYROXINE SODIUM 75 MCG TABLET PO SCH ×2 (06:01→06:02)
[2020-07-06 06:23] LABS: Hematocrit (blood only) 47.2 % (42-52); Hemoglobin 15.5 g/dL (14.0-18.0); Mean Corpuscular Hemoglobin 28.8 pg (25-34); Mean Corpuscular Hgb Conc 32.8 g/dL (32-36); Mean Corpuscular Volume 87.6 fL (80-100); RDW Coefficient of Variation 14.1 % (11.5-14.5); RDW Standard Deviation 45.2 fL (36.4-46.3); Red Blood Count 5.39 M/uL (4.7-6.1); White Blood Count 4.15 K/uL (4.8-10.8)
[2020-07-06 06:52] LABS: Platelet Count 89 K/uL (130-400)
[2020-07-06 06:59] LABS: BUN Creatinine Ratio 28.1 (10-20); Creatinine Clr Calc Pharmacy 55.2 ml/min; Est GFR (African American) 53.3 ml/min; Magnesium 2.1 mg/dl (1.8-2.4)
[2020-07-06 07:01] LABS: Basophils # (auto) 0.02 K/uL (0-0.2); Basophils % (auto) 0.5 %; Eosinophils # (auto) 0.07 K/uL (0-0.5); Eosinophils % (auto) 1.7 %; Immature Granulocytes # (auto) 0.02 K/uL (0.00-0.02); Immature Granulocytes % (auto) 0.5 %; Lymphocytes # (auto) 0.88 K/uL (1.2-3.4); Lymphocytes % (auto) 21.2 %; Monocytes # (auto) 0.32 K/uL (0.11-0.59); Monocytes % (auto) 7.7 %; Neutrophils # (auto) 2.84 K/uL (1.4-6.5); Neutrophils % (auto) 68.4 %
[2020-07-06] MEDS: INSULIN ASPART 100 UNITS/ML 3 ML PEN SC SCH ×2 (08:47→12:30)
[2020-07-06] MEDS ORDERED: BUMETANIDE 1 MG TAB PO SCH (09:00)
[2020-07-06] MEDS ORDERED: amLODIPine BESYLATE 5 MG TAB PO SCH (09:00)
--- NOTE | 2020-07-06 16:42 | Discharge Summary ---
Date of Service July 06, 2020 Admission HPI Per Admitting Provider 65 YOM with past medical history of Afib(Xarelto), DM2, CKD III, HLD, HTN, Hypothyroidism, AARON. Patient with CKD III secondary to diabetic nephropathy and hypertension. He has previous admissions for hyperkalemia with dietary indiscretions- tomatoes, fruit juices and V8. Today he comes in for K 6.1 on routine lab draw. He endorses this time eating potatoes and tree days of fruit salad. He has no ectopy or changes on ECG and his renal function is at baseline to include normal HCO3. He took his medications this morning except his insulin. He was evaluated in the ED and received Albuterol nebulizer, 10 units R Insulin with amp D50, and 1 mg Bumex. Patient will be admitted for monitoring of potassium. Principal Diagnosis Hyperkalemia caused by high potassium intake and CKD Discharge Exam Constitutional WD/WN, vitals as above Eyes EOM intact bilaterally; no conjunctival abnormality ENMT external ear and nose normal, oropharynx normal Neck trachea midline, no thyromegaly normal visual inspection Respiratory normal respiratory effort, lungs clear to auscultation no respiratory distress Cardiovascular RRR, no murmur, no edema Gastrointestinal (Abdomen) Inspection/Auscultation: abdomen normal to inspection; abdomen not distended Musculoskeletal no cyanosis or clubbing, extremities motor strength 5/5 Skin no rashes, warm and dry Neurologic moves all extremities and awake Psychiatric Orientation: alert, oriented to person and cooperative Discharge Data Allergies Allergy/AdvReac Type Severity Reaction Status Date / Time furosemide [From Lasix] Allergy Mild Rash Verified 07/05/20 15:05 Consultations 07/05/20 15:49 ED Decision to Admit Stat Hospital Course (1) Hyperkalemia: Due to dietary intake. He admits to having fruit salad with bananas and oranges for several days in a row as well as potatoes and potato chips. - Given insulin/dextrose and Bumex in the ED - Put on a renal diet - By 07/06, potassium had dropped to 5.0 which is his baseline. (Usually runs high 4s/low 5s). We discussed it, and he did not want to trial Veltassa. He was very sure that more discipline and re-assessing high potassium foods would be enough to keep his potassium at a normal level. I discussed that it is hard to be 100% disciplined, and a medication might help balance out this issue, but he deferred medication at this time. - Will follow up with Dr. 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 - Renal dose medications (3) Hypertension: Appears decently well controlled with outpatient visits - continue home regimen (4) Paroxysmal atrial flutter: Rate controlled without medication, no acute needs - Continue Xarelto (appropriately renally-dosed) (5) Chronic diastolic (congestive) heart failure: As above- continue bumex 1 daily and amlodipine 5mg qam (6) AARON (obstructive sleep apnea): CPAP 14 cm H2O at night, with 1-2 L oxygen bled in (7) Uncontrolled type 2 diabetes mellitus with insulin therapy: As above, transition to SSI in house 35 CF with 1:15 ratio - HGB a1c improved on routine check today (8) Hypothyroidism: Continue home Synthroid 75mcg daily (9) Hypercholesterolemia: (10) Asthma: No acute needs although he is not on JEVON- he has gotten his COVID vaccines - Continue fluticasone/salmeterol inh Total Time Total Time Spent Total Time Spent (In Minutes): 35 Discharge Plan Discharge Items Patient Disposition: Home - Self-Care Reason For Visit: HYPERKALEMIA Discharge Diagnosis: High potassium Activity: Resume your previous activity Non-emergency contact: Primary Care Provider and Abstract Checker Call non-emergency contact if: your symptoms worsen Follow-up/Referrals: Guillermo Hopkins MD [Physician] - (Please see Dr. Hopkins in 1-2 weeks for a potassium check.) Jf Taylor III, MD [Primary Care Provider] - 07/19/20 9:30 am Diet: Dialysis Renal Addtl Attending Provider Instructions: Mr. Johnson, You were admitted with high potassium. This is likely from the bananas, potatoes, and other high-potassium foods you were eating in the last week. This can cause dangerous heart issues. Please see Dr. Hopkins next week for a potassium check. There are medications that you can use to help lower potassium. For now, we decided to hold off because you felt this could be corrected with dietary changes. You can speak with Dr. Hopkins about the medications in the office if high potassium continues to be an issue for you. Pending Studies at Discharge: No Stand-Alone Forms: My [facility], Smoking Cessation Medications and DC Order Prescriptions: Continued (DME) pen needle, diabetic [AboutTime Pen Needle] 32 gauge x 5/32" needle See Rx Instructions .ROUTE .MEDSUPPLY Qty: 50 RF: 0 (DME) blood-glucose meter [OneTouch Ultra2 Meter] Misc See Rx Instructions .ROUTE .MEDSUPPLY Qty: 1 RF: 0 amlodipine 5 mg tablet 5 mg PO QAM Qty: 90 RF: 3 glipizide 10 mg tablet 10 mg PO BID Qty: 180 RF: 3 ergocalciferol (vitamin D2) 1,250 mcg (50,000 unit) capsule 1,250 mcg PO .COMPLEX Qty: 12 RF: 0 Lantus Solostar U-100 Insulin 100 unit/mL (3 mL) insulin pen See Rx Instructions subcut BID Qty: 30 RF: 3 Xarelto 15 mg tablet 15 mg PO QPM Qty: 90 RF: 3 (DME) OneTouch Ultra Blue Test Strip Strip See Rx Instructions .ROUTE .MEDSUPPLY Qty: 300 RF: 3 fluticasone propion-salmeterol [Advair Diskus] 500-50 mcg/dose blister with device 1 inh INHALATION BID PRN (Reason: Shortness Of Breath) Qty: 3 RF: 3 bumetanide 1 mg tablet 1 mg PO DAILY Qty: 30 RF: 5 (DME) lancets 33 gauge misc See Rx Instructions gauge .ROUTE .MEDSUPPLY Qty: 100 RF: 0 (DME) blood-glucose meter Kit See Rx Instructions ea .ROUTE .MEDSUPPLY Qty: 1 RF: 0 magnesium oxide 400 mg magnesium tablet 800 mg PO BID Qty: 120 RF: 0 levothyroxine 75 mcg tablet 75 mcg PO QAM RF: 0 Discharge Orders: Discharge Order (Routine); Ordered 07/06/20 Ordered By: Ferdinand Lindsey/Other Patient Handouts: Hyperkalemia Dc, Low Potassium Diet Dc Admission Data Admit Date/Time: 07/05/20 17:39 Attending Provider: Ferdinand Hunter Admit Provider: Joel Chatterjee Primary Care Provider: Jf Taylor III Other Providers: Ferdinand Hunter Other Interventions: Discharge Summary Assessment (RN) Last Done: 07/06/20 12:16 Coding Level of Care Code D/C Day Management >30 mins Diagnoses Hyperkalemia E87.5 CKD (chronic kidney disease), stage III N18.32 Chronic kidney disease stage 3 subtype: stage 3b (GFR 30-44) Hypertension I15.2 Hypertension type: secondary to endocrine disorders Paroxysmal atrial flutter I48.92 Chronic diastolic (congestive) heart failure I50.32 AARON (obstructive sleep apnea) G47.33 Uncontrolled type 2 diabetes mellitus with insulin therapy E11.65; Z79.4 Hypothyroidism E03.9 Hypothyroidism type: unspecified Hypercholesterolemia E78.00 Asthma J45.909 Asthma severity: unspecified severity Asthma persistence: unspecified Asthma complication type: unspecified
== END 2020-07-06 13:50 | disposition home or self-care (01) | DRG 641 ==
LOC: ED 13:24 → 2N 17:39 → SUATTDRO 17:39 → 2N 18:19